=== PATIENT | female | born 1965 | race Caucasian/White ===

== ENCOUNTER 2016-07-29 13:07 | Emergency (ER) | payer BC ==
[~2016-07-29] VITALS: Ht 160 cm; Wt 50.1 kg
[~2016-07-29 13:07] MED LIST: ACYC400T PO; ALEN40TA2 PO; BUME2TAB3 PO; CEVI1CAP PO; CYAN3INJ IM; ESCI5TAB PO; LACT1CAP6 PO; LEVO75TA PO; METO25TA56 PO; MULT1PAK; NRN/300 PO; RIZA10TA18 PO; TRAM-10 PO
[2016-07-29 13:10] VITALS: TEMP 36.8; Ht 160 cm; Wt 50.1 kg
[2016-07-29] MEDS ORDERED: ALBUT/IPRATROP 3MG/0.5MG NEB 3 ML VIAL INH STA (13:36)
[2016-07-29] MEDS ORDERED: CEFU1TAB36 PO (14:06)
[2016-07-29] MEDS ORDERED: FSM70 PO (14:06)
[2016-07-29 14:12] LABS: BASO % 0.1 %; BASO ABS # 0.01 K/uL (0-0.2); COMPLETE YES; EOS % 1.4 %; HEMATOCRIT 34.5 % (37-47); IG% 0.1 %; LYMPH ABS # 1.07 K/uL (1.2-3.4); MEAN CELL VOLUME 89.1 fL (80-100); MEAN CORPUSCULAR HEMOGLOBIN 29.7 pg (25-34); MEAN CORPUSCULAR HGB CONC 33.3 g/dl (32-36); MEAN PLATELET VOLUME 10.1 fL (7.4-10.4); MONO % 12.2 %; NEUT % 72.2 %; PLATELET COUNT 303 K/uL (130-400); RED BLOOD COUNT 3.87 M/uL (4.2-5.4); WHITE BLOOD COUNT 7.64 K/uL (4.8-10.8)
[2016-07-29 14:28] LABS: BUN/CREATININE RATIO 9.4 (10-20); CALCIUM 9.2 mg/dl (8.5-10.1); CREATININE 0.7 mg/dl (0.60-1.20); POTASSIUM 3.9 mmol/L (3.5-5.1)
[2016-07-29 14:32] LABS: ALB/GLOB RATIO 0.9 (0.9-2)
[2016-07-29 14:48] VITALS: BP 117/75; PULSE 82; O2SAT 100
--- NOTE | 2016-07-29 14:55 | DIAGNOSTIC IMAGING REPORT ---
TWO VIEW CHEST CLINICAL HISTORY: Cough and fever. FINDINGS: PA and lateral chest radiographs are compared to study dated 02/08/2016. The cardiomediastinal silhouette is unremarkable. Chronic interstitial thickening is similar to previous. The lungs and pleural spaces are clear. There is no pneumothorax. The bony thorax appears intact. Cholecystectomy clips are identified in the right upper quadrant. IMPRESSION: No active disease in the chest. Electronically signed by: Long Banks M.D. 07/29/2016 2:53 PM Dictated Date/Time: 07/29/2016 2:52 PM
--- NOTE | 2016-07-29 15:29 | EMERGENCY ROOM VISIT NOTE ---
ED Visit Note First contact with patient: 13:15 CHIEF COMPLAINT: Flulike symptoms 5 days HISTORY OF PRESENT ILLNESS: Patient is a 50-year-old white female with past medical history significant for Sjogren's syndrome, SICCA syndrome, dyslipidemia , hypertension, hypothyroidism, B-12 deficiency, cryoglobulinemia (mixed type) and hypogammaglobinemia who presents to the emergency department for evaluation of flulike symptoms over the last 5 days. She is not presently being treated for her autoimmune disease. She reports developing "cold-like symptoms about 5 days ago including sore throat, nasal congestion, fatigue and body and muscle aches. She had a low-grade fever for a few days, temperature max was 100F orally. She also reports fatigue, nausea and anorexia. 3 days ago, she went to her PCPs office due to all of the sinus pressure and congestion and was placed on Ceftin for a sinus infection. 2 days ago she noted feeling slightly short of breath and had a nonproductive cough. She has not had any further fevers. She is using utla-jrm-grnqlof medications including Mucinex, Tylenol and TheraFlu for her symptoms but she is not getting any better. She has not received a flu shot. She denies any sick contacts. She denies any posterior neck pain or stiffness. She complains mostly of facial pressure from her sinuses. She denies any generalized headache. REVIEW OF SYSTEMS: Review of systems as per HPI. All other systems reviewed were negative. 10 systems reviewed. PMH: Electronic medical records are reviewed and summarized as above/below. See Problem List. SOCIAL HISTORY: Patient lives at home. Former smoker. PHYSICAL EXAM: Vital Signs: Reviewed Nurse's notes. Patient is afebrile. Vital signs are stable. MENTAL STATUS: Alert and cooperative. Nontoxic appearing. HEAD: Atraumatic, without temporal or scalp tenderness. EYES: PERRL, EOMI, no discharge or injection. EARS: Tympanic membranes intact, not inflamed, have normal contour. External canals clear. NOSE: Nares patent, turbinates edematous and boggy with clear rhinorrhea. MOUTH: Mucous membranes moist, no lesions, tongue and gums appear normal. THROAT: No pharyngeal injection, exudates, or tonsillar hypertrophy. Airway is patent. NECK: Supple, nontender, no lymphadenopathy. No nuchal rigidity. HEART: Regular rate and rhythm without murmurs, ectopy, gallops, or rubs. LUNGS: Clear to auscultation and breath sounds equal, no wheezes, rales, or rhonchi. SKIN: Normal. NEUROLOGICAL: Sensory and motor functions grossly intact. Normal gait. EMERGENCY DEPARTMENT COURSE: The patient was seen and evaluated as above. She reports roughly 5 days of upper respiratory symptoms. She was given a DuoNeb treatment in the emergency department. Influenza swab was obtained and was negative. CBC demonstrates no leukocytosis. She has a chronic, stable anemia. Electrolytes and liver functions are essentially unremarkable. Urine dip was clear and test was negative. Chest x-ray was obtained and was unremarkable. Patient's history, presentation and ED workup were reviewed with attending physician who was in agreement. I discussed with the patient that I suspect her illness is likely viral in nature. I did not suspect that she had a sinusitis as she had only been ill for a couple of days prior to her being placed on the oral antibiotics. Nonetheless as she has started the antibiotics , she should complete the entire course. She is not improving because her illness is viral and not likely to be bacterial. She does not have influenza by testing today. She was encouraged to continue supportive care. She was ordered an albuterol inhaler with a spacer, however declined this at discharge per discharge nurse. She certainly does not have findings consistent with meningitis or encephalitis exam. Differential diagnoses include viruses including influenza, strep pharyngitis, sinusitis, allergic rhinitis, otitis media, bronchitis, pneumonia, among others. TWO VIEW CHEST CLINICAL HISTORY: Cough and fever. FINDINGS: PA and lateral chest radiographs are compared to study dated 02/08/2016. The cardiomediastinal silhouette is unremarkable. Chronic interstitial thickening is similar to previous. The lungs and pleural spaces are clear. There is no pneumothorax. The bony thorax appears intact. Cholecystectomy clips are identified in the right upper quadrant. IMPRESSION: No active disease in the chest. Problem List Medical Problems: (1) Anemia Status: Chronic (2) Hypogammaglobulinemia Status: Chronic (3) Mixed cryoglobulinemia Status: Chronic (4) Sjoegren syndrome Status: Chronic Surgical Problems: (1) H/O tubal ligation Status: Resolved (2) History of open reduction and internal fixation (ORIF) procedure Status: Resolved Current/Historical Medications Scheduled Alendronate Sodium (Alendronate Sodium), 70 MG PO WK Cefuroxime Axetil (Cefuroxime Axetil), 50 MG PO BID Cevimeline Hcl (Cevimeline Hcl), 30 MG PO TID Cyanocobalamin (Vitamin B-12 Inj), 1,000 MCG IM MONTHLY Escitalopram Oxalate (Lexapro), 1 TAB PO DAILY Levothyroxine Sodium (Synthroid), 75 MCG PO DAILY Metoprolol Tartrate (Lopressor) (Lopressor), 0.5 TAB PO BID Allergies Coded Allergies: Sulfamethoxazole w/Trimethoprim (Verified Allergy, Intermediate, rash, 02/06) Vital Signs Date Time Temp Pulse Resp B/P Pulse Ox O2 Delivery O2 Flow Rate FiO2 07/29/16 14:48 82 18 117/75 100 Room Air 07/29/16 13:10 36.8 92 18 127/67 98 Room Air Laboratory Results 07/29/16 13:50 Red Blood Count 3.87, Mean Corpuscular Volume 89.1, Mean Corpuscular Hemoglobin 29.7, Mean Corpuscular Hemoglobin Concent 33.3, Mean Platelet Volume 10.1, Neutrophils (%) (Auto) 72.2, Lymphocytes (%) (Auto) 14.0, Monocytes (%) (Auto) 12.2, Eosinophils (%) (Auto) 1.4, Basophils (%) (Auto) 0.1, Neutrophils # (Auto ) 5.51, Lymphocytes # (Auto) 1.07, Monocytes # (Auto) 0.93, Eosinophils # (Auto ) 0.11, Basophils # (Auto) 0.01 07/29/16 13:50 Test 07/29/16 13:40 07/29/16 13:45 07/29/16 13:50 Urine Test NEG (NEG) Influenza Type A Antigen Neg for Influ A (NEG) Influenza Type B Antigen Neg for Influ B (NEG) White Blood Count 7.64 K/uL (4.8-10.8) Red Blood Count 3.87 M/uL (4.2-5.4) Hemoglobin 11.5 g/dL (12.0-16.0) Hematocrit 34.5 % (37-47) Mean Corpuscular Volume 89.1 fL (80-100) Mean Corpuscular Hemoglobin 29.7 pg (25-34) Mean Corpuscular Hemoglobin Concent 33.3 g/dl (32-36) Platelet Count 303 K/uL (130-400) Mean Platelet Volume 10.1 fL (7.4-10.4) Neutrophils (%) (Auto) 72.2 % Lymphocytes (%) (Auto) 14.0 % Monocytes (%) (Auto) 12.2 % Eosinophils (%) (Auto) 1.4 % Basophils (%) (Auto) 0.1 % Neutrophils # (Auto) 5.51 K/uL (1.4-6.5) Lymphocytes # (Auto) 1.07 K/uL (1.2-3.4) Monocytes # (Auto) 0.93 K/uL (0.11-0.59) Eosinophils # (Auto) 0.11 K/uL (0-0.5) Basophils # (Auto) 0.01 K/uL (0-0.2) RDW Standard Deviation 44.7 fL (36.4-46.3) RDW Coefficient of Variation 13.7 % (11.5-14.5) Immature Granulocyte % (Auto) 0.1 % Immature Granulocyte # (Auto) 0.01 K/uL (0.00-0.02) Anion Gap 9.0 mmol/L (3-11) Est Creatinine Clear Calc Drug Dose 77.7 ml/min Estimated GFR () 118.7 Estimated GFR (Non- 102.5 BUN/Creatinine Ratio 9.4 (10-20) Calcium Level 9.2 mg/dl (8.5-10.1) Total Bilirubin 0.3 mg/dl (0.2-1) Aspartate Amino Transf (AST/SGOT) 39 U/L (15-37) Alanine Aminotransferase (ALT/SGPT) 32 U/L (12-78) Alkaline Phosphatase 209 U/L (45-117) Total Protein 6.8 gm/dl (6.4-8.2) Albumin 3.3 gm/dl (3.4-5.0) Globulin 3.5 gm/dl (2.5-4.0) Albumin/Globulin Ratio 0.9 (0.9-2) Medications Administered Medications (Trade) Dose Ordered Sig/Selena Route Start Time Stop Time Status Last Admin Dose Admin Albuterol/ Ipratropium (Duoneb) 3 ml NOW STAT INH 07/29/16 13:36 07/29/16 13:38 DC 07/29/16 13:58 3 ML Departure Information Impression Primary Impression: Viral upper respiratory illness Referrals Edward Bae M.D. (PCP) Patient Instructions [facility] Additional Instructions Finish antibiotics as prescribed by your PCP. Acetaminophen(Tylenol) may be used for fever or pain. Use 1000mg every six hours as needed. Avoid using more than 3000mg in a 24 hour period. (AND/OR) Ibuprofen(Motrin, Advil) may be used for fever or pain. Use 600mg every six hours as needed. Take with food. Avoid using more than 2400mg in a 24 hour period. Do not use 2400mg per day for more than three consecutive days without physician direction. Prolonged inappropriate use can lead to stomach upset or ulcers. Afrin nasal spray: 2-3 sprays to each nostril twice daily as needed for congestion. Do not use for more than 3-4 days because it can lead to worsening rebound congestion. Use an ggqq-[id number] nasal steroid spray per package instructions (Nasacort, Nasonex, etc.). Pseudoephedrine(Sudaphed): 30-60mg every 6 hours as needed for nasal congestion. Do not take this with other stimulant products or supplements. Guaifenesin (Mucinex) : Take 1200 mg every 12 hours as needed for nasal/chest congestion, to help thin secretions. Albuterol Inhaler: Take 2 puffs four times daily for seven days, then as needed. Rest and drink plenty of fluids. Controlling your fever with Tylenol and Ibuprofen as above will make you feel better. Wash your hands after nose blowing, sneezing, or coughing. Most germs are spread through contact, therefore improper hygiene may result in your close contacts and loved ones becoming ill just like you. Continue current medications. Return to the ER for severe headache, neck stiffness, chest pain, difficulty breathing, fevers, vomiting, worsening of your condition, or as needed. Follow up with your primary physician this week for a recheck of your current condition.
[2016-07-29] MEDS ORDERED: ALBUTEROL HFA 8 GM INHALER INH ONE (15:30)
== END 2016-07-29 15:47 | disposition home or self-care (01) ==
LOC: C.EDB 13:09 → C.EDC 15:47
DX: J06.9 Acute upper respiratory infection, unspecified (principal); I10 Essential (primary) hypertension; E78.5 Hyperlipidemia, unspecified; E03.9 Hypothyroidism, unspecified; Z87.891 Personal history of nicotine dependence; Z98.51 Tubal ligation status; Z90.49 Acquired absence of other specified parts of digestive tract; Z79.899 Other long term (current) drug therapy; Z88.2 Allergy status to sulfonamides

== ENCOUNTER 2016-10-29 11:49 | Inpatient (IN) | payer BC ==
[~2016-10-29] VITALS: Ht 160 cm; Wt 48.4 kg
[~2016-10-29 11:49] MED LIST changes: -ACYC400T PO; -ALEN40TA2 PO; -BUME2TAB3 PO; +CEFU1TAB36 PO; +FSM70 PO; -LACT1CAP6 PO; -MULT1PAK; -NRN/300 PO; -RIZA10TA18 PO; -TRAM-10 PO
[2016-10-29] MEDS ORDERED: SODIUM CHLORIDE 0.9% 1000ML 2,000 ML IV STA (12:01)
[2016-10-29] MEDS ORDERED: KETOROLAC TROMETHAMINE 30 MG/ML VIAL IV STA (12:01)
[2016-10-29] MEDS ORDERED: ONDANSETRON 4MG OD TAB PO ONE (12:15)
[2016-10-29 12:24] LABS: BASO % 0.1 %; BASO ABS # 0.01 K/uL (0-0.2); COMPLETE YES; EOS % 0.6 %; HEMATOCRIT 41.5 % (37-47); IG% 0.2 %; LYMPH % 5.7 %; LYMPH ABS # 0.57 K/uL (1.2-3.4); MEAN CELL VOLUME 90.2 fL (80-100); MEAN CORPUSCULAR HEMOGLOBIN 30.2 pg (25-34); MEAN CORPUSCULAR HGB CONC 33.5 g/dl (32-36); MEAN PLATELET VOLUME 10.3 fL (7.4-10.4); NEUT % 85.4 %; PLATELET COUNT 320 K/uL (130-400)
--- NOTE | 2016-10-29 12:29 | EMERGENCY ROOM VISIT NOTE ---
History Report prepared by Sukhwinder: Tha Pemberton Under the Supervision of: Dr. Long Parks M.D. First contact with patient: 12:01 Chief Complaint: VOMITING Stated Complaint: VOMITING,DIARRHEA,DIZZY,SOB Nursing Triage Summary: Pt c/o being dehydrated. N/V/D since 399. Headache, ears feel clogged , dizzy. History of Present Illness The patient is a 51 year old female who presents to the Emergency Room with complaints of vomiting that began 32 hours ago. She began to vomit at this time. Shortly after this, she began to have diarrhea. She has been having these two either intermittently, or together, very frequently since then. She notes that her granddaughter had a mild version of this, but it was not this bad. She has not eaten for two days, because she cannot keep anything down without vomiting. She is only experiencing mild cramp-like pain in her abdomen. She denies any hematemesis or hematochezia. She has a history of hypertension and heart disease. She is taking Metoprolol regularly. Source of History: patient Onset: 32 hours ago Position: other (GI) Symptom Intensity: moderate Quality: other (Vomiting) Timing: intermittent, other (persistent) Modifying Factors (Worsening): eating, drinking Associated Symptoms: + abdominal pain, + chills, + diarrhea, + nausea, No hematochezia Note: She denies any hematemesis. Review of Systems See HPI for pertinent positives & negatives. A total of 10 systems reviewed and were otherwise negative. Past Medical & Surgical Medical Problems: (1) Acute exacerbation of CHF (congestive heart failure) (2) Anemia (3) Anemia (4) Hypogammaglobulinemia (5) Mixed cryoglobulinemia (6) Sjoegren syndrome Surgical Problems: (1) H/O tubal ligation (2) History of open reduction and internal fixation (ORIF) procedure Family History Cancer Heart disease Hypertension Kidney stones Social History Smoking Status: Former Smoker Alcohol Use: occasionally Drug Use: none Marital Status: Housing Status: lives with significant other Occupation Status: employed Current/Historical Medications Scheduled Alendronate Sodium (Alendronate Sodium), 70 MG PO WK Cevimeline Hcl (Cevimeline Hcl), 30 MG PO TID Cyanocobalamin (Cyanocobalamin), 1 MCG INJ Mo Eluxadoline (Viberzi), 75 MG PO HS Escitalopram Oxalate (Lexapro), 1 TAB PO DAILY Levothyroxine Sodium (Synthroid), 75 MCG PO DAILY Metoprolol Tartrate (Lopressor) (Lopressor), 0.5 TAB PO BID Allergies Coded Allergies: Sulfamethoxazole w/Trimethoprim (Verified Allergy, Intermediate, rash, ) Physical Exam Vital Signs Date Time Temp Pulse Resp B/P Pulse Ox O2 Delivery O2 Flow Rate FiO2 10/29/16 13:35 80 16 122/79 100 Room Air 10/29/16 12:27 102 10/29/16 11:51 36.4 138 16 120/77 96 Room Air Physical Exam GENERAL: Patient is in no acute distress. HEENT: No acute trauma, normocephalic atraumatic, mucous membranes dry, no nasal congestion, no scleral icterus. NECK: No stridor, no adenopathy, no meningismus, trachea is midline. LUNGS: Clear to auscultation bilaterally, no wheeze, no rhonchi, breath sounds equal. HEART: Tachycardic, with a regular rhythm. No murmurs. ABDOMEN: Soft, nontender, bowel sounds positive, no hernias, no peritonitis. EXTREMITIES: No cyanosis or edema, full range of motion of all the joints without pain or difficulty, no signs for acute trauma. NEUROLOGIC: Oriented x 3, no acute motor or sensory deficits, no focal weakness. SKIN: No rash, no jaundice, no diaphoresis. Medical Decision & Procedures Laboratory Results 10/29/16 12:05 Red Blood Count 4.60, Mean Corpuscular Volume 90.2, Mean Corpuscular Hemoglobin 30.2, Mean Corpuscular Hemoglobin Concent 33.5, Mean Platelet Volume 10.3, Neutrophils (%) (Auto) 85.4, Lymphocytes (%) (Auto) 5.7, Monocytes (%) (Auto) 8.0, Eosinophils (%) (Auto) 0.6, Basophils (%) (Auto) 0.1, Neutrophils # (Auto) 8.54, Lymphocytes # (Auto) 0.57, Monocytes # (Auto) 0.80, Eosinophils # (Auto) 0.06, Basophils # (Auto) 0.01 10/29/16 12:05 Test 10/29/16 12:05 White Blood Count 10.00 K/uL (4.8-10.8) Red Blood Count 4.60 M/uL (4.2-5.4) Hemoglobin 13.9 g/dL (12.0-16.0) Hematocrit 41.5 % (37-47) Mean Corpuscular Volume 90.2 fL (80-100) Mean Corpuscular Hemoglobin 30.2 pg (25-34) Mean Corpuscular Hemoglobin Concent 33.5 g/dl (32-36) Platelet Count 320 K/uL (130-400) Mean Platelet Volume 10.3 fL (7.4-10.4) Neutrophils (%) (Auto) 85.4 % Lymphocytes (%) (Auto) 5.7 % Monocytes (%) (Auto) 8.0 % Eosinophils (%) (Auto) 0.6 % Basophils (%) (Auto) 0.1 % Neutrophils # (Auto) 8.54 K/uL (1.4-6.5) Lymphocytes # (Auto) 0.57 K/uL (1.2-3.4) Monocytes # (Auto) 0.80 K/uL (0.11-0.59) Eosinophils # (Auto) 0.06 K/uL (0-0.5) Basophils # (Auto) 0.01 K/uL (0-0.2) RDW Standard Deviation 46.4 fL (36.4-46.3) RDW Coefficient of Variation 14.2 % (11.5-14.5) Immature Granulocyte % (Auto) 0.2 % Immature Granulocyte # (Auto) 0.02 K/uL (0.00-0.02) Anion Gap 13.0 mmol/L (3-11) Est Creatinine Clear Calc Drug Dose 28.9 ml/min Estimated GFR () 37.6 Estimated GFR (Non- 32.5 BUN/Creatinine Ratio 12.1 (10-20) Calcium Level 10.2 mg/dl (8.5-10.1) Magnesium Level 2.5 mg/dl (1.8-2.4) Total Bilirubin 0.7 mg/dl (0.2-1) Aspartate Amino Transf (AST/SGOT) 122 U/L (15-37) Alanine Aminotransferase (ALT/SGPT) 217 U/L (12-78) Alkaline Phosphatase 542 U/L (45-117) Total Protein 8.7 gm/dl (6.4-8.2) Albumin 4.7 gm/dl (3.4-5.0) Globulin 4.0 gm/dl (2.5-4.0) Albumin/Globulin Ratio 1.2 (0.9-2) Lipase 259 U/L (73-393) Laboratory results reviewed by me. Medications Administered Medications (Trade) Dose Ordered Sig/Selena Route Start Time Stop Time Status Last Admin Dose Admin Sodium Chloride (Nss 1000ml) 2,000 ml @ 999 mls/hr Q2H1M STAT IV 10/29/16 12:01 10/29/16 14:01 DC 10/29/16 12:12 999 MLS/HR Ondansetron HCl (Zofran Odt) 4 mg ONE ONCE PO 10/29/16 12:15 10/29/16 12:16 DC 10/29/16 12:11 4 MG Lorazepam (Ativan Inj) 0.5 mg NOW STAT IV 10/29/16 12:54 10/29/16 12:55 DC 10/29/16 13:18 0.5 MG ED Course 1201: The patient was evaluated in room B3. A complete history and physical exam was performed. Ordered Sodium Chloride 2000 ml @ 999 mls/hr IV. 1215: Ordered Zofran Odt 4 mg PO 1254: Ordered Ativan Inj 0.5 mg IV 1406: Upon reexamination the patient is resting. I discussed results and treatment plan with the patient. She verbalizes agreement and understanding. The patient will be evaluated by Dr. Ignacio Monteiro [facility], for further management. Medical Decision Differential diagnosis includes but is not limited to dehydration, acute renal failure, viral illness, electrolyte abnormality, anemia, and foodborne illness. There is no leukocytosis or concerning anemia. Renal panel testing shows acute renal failure. A hepatitis was also noted. No pancreatitis. Urinalysis shows contamination, no obvious infection. On exam, the patient did seem quite dehydrated. Patient received IV saline, IV Zofran and IV Ativan. She is doing well. No further vomiting but she has continued to have diarrhea. With the acute renal failure, with the persistent symptoms, admission/ observation was warranted. I spoke to the patient and case management. The on- call hospitalist was consulted. I suspect this illness is viral. Her granddaughter had something similar recently. Consults Time Called: 1400 Consulting Physician: Dr. Ignacio PORTILLO Returned Call: [phone] They will be evaluating the patient for further management. Impression Primary Impression: Acute renal failure Additional Impressions: Dehydration Vomiting and diarrhea Scribe Attestation The scribe's documentation has been prepared under my direction and personally reviewed by me in its entirety. I confirm that the note above accurately reflects all work, treatment, procedures, and medical decision making performed by me. Departure Information Dispostion Being Evaluated By Hospitalist Referrals Edward Bae M.D. (PCP) Patient Instructions [facility] Problem Qualifiers
[2016-10-29] MEDS ORDERED: CYNI1000 INJ (12:35)
[2016-10-29 12:38] LABS: POTASSIUM 3.6 mmol/L (3.5-5.1)
[2016-10-29 12:42] LABS: BUN/CREATININE RATIO 12.1 (10-20); CALCIUM 10.2 mg/dl (8.5-10.1); CREATININE 1.8 mg/dl (0.60-1.20)
[2016-10-29] MEDS ORDERED: ELUX1TAB PO (12:43)
[2016-10-29 12:45] LABS: ALB/GLOB RATIO 1.2 (0.9-2); MAGNESIUM 2.5 mg/dl (1.8-2.4)
[2016-10-29] MEDS ORDERED: LORAZEPAM 2 MG/ML 1 ML VIAL IV STA (12:54)
[2016-10-29] MEDS ORDERED: ACETAMINOPHEN 325 MG TAB PO PRN (14:30)
[2016-10-29] MEDS ORDERED: ONDANSETRON INJ 2 MG/ML 2 ML VIAL IV PRN (14:30)
[2016-10-29 14:52] VITALS: Ht 160 cm; Wt 48.4 kg
[2016-10-29 15:34] VITALS: BP 107/69; PULSE 89; TEMP 36.4; O2SAT 98
[2016-10-29] MEDS: NSS + 20MEQ KCL 1000ML 1,000 ML IV SCH (15:48)
--- NOTE | 2016-10-29 17:17 | History and Physical ---
History & Physical Date & Time of Service: Oct 29, 2016 at 15:12 Chief Complaint: Vomiting,Diarrhea,Dizzy,Sob Primary Care Physician: Edward Bae M.D. History of Present Illness Source: patient, hospital records 51 yo female with h/o Sjogren's syndrome, mixed cryoglobulinemia, hypogammaglobulinemia and IBS, presents to the ED with vomiting and diarrhea that started exactly at 0400 on 10/28. She reports that her grand daughter had vomiting and diarrhea for approximately 12 hours a few days prior. She was feeling well until suddenly she woke up with the urge to vomit. She vomited several times, bilious and gastric contents, no blood. She had no abdominal pain, just some mild cramping. A few hours later the diarrhea started and has continued. Was liquid brown and now it is yellow. No blood that she has noticed. She has tried some ice chips and water but throws up almost immediately, really no PO intake since the symptoms started. She was feeling weak and shaky on her feet and also c/o some bilateral hand and leg numbness so she came to the ED for evaluation. Her vitals were stable, afebrile. Her Cr was elevated at 1.8 from a previous baseline of 0.5 to 0.7 and her BUN was slightly high at 22. Her LFT were also elevated with alkaline phosphatase 543, her ALT in the 200's and AST 100's. Bilirubin was normal. She was given IV fluids and admission requested due to MAYDA. Typically she feels well. She is compliant with her Cevimeline for Sjogren's, currently her mouth is more dry than normal. And she takes Viberzi for IBS, diarrhea predominant and this limits her to 1-2 BM in the morning. Past Medical/Surgical History s/p cholecystectomy Medical Problems: (1) Anemia Status: Chronic (2) Hypogammaglobulinemia Status: Chronic (3) Mixed cryoglobulinemia Status: Chronic (4) Sjoegren syndrome Status: Chronic Surgical Problems: (1) H/O tubal ligation Status: Resolved (2) History of open reduction and internal fixation (ORIF) procedure Status: Resolved Family History Cancer Heart disease Hypertension Kidney stones Social History Smoking Status: Former Smoker Drug Use: none Marital Status: Housing status: lives with family Occupational Status: employed Immunizations History of Influenza Vaccine: No History of Tetanus Vaccine?: Unknown History of Pneumococcal: No History of Hepatitis B Vaccine: No Allergies Coded Allergies: Sulfamethoxazole w/Trimethoprim (Verified Allergy, Intermediate, rash, ) Home Medications Scheduled Alendronate Sodium (Alendronate Sodium), 70 MG PO WK Cevimeline Hcl (Cevimeline Hcl), 30 MG PO TID Cyanocobalamin (Cyanocobalamin), 1 MCG INJ Mo Eluxadoline (Viberzi), 75 MG PO HS Escitalopram Oxalate (Lexapro), 1 TAB PO DAILY Levothyroxine Sodium (Synthroid), 75 MCG PO DAILY Metoprolol Tartrate (Lopressor) (Lopressor), 0.5 TAB PO BID Physical Exam Vital Signs Date Time Temp Pulse Resp B/P Pulse Ox O2 Delivery O2 Flow Rate FiO2 10/29/16 14:55 91 16 114/84 100 Room Air 10/29/16 14:52 Room Air 10/29/16 13:35 80 16 122/79 100 Room Air 10/29/16 12:27 102 10/29/16 11:51 36.4 138 16 120/77 96 Room Air General Appearance: no apparent distress, + thin Head: normocephalic, atraumatic Eyes: normal inspection, EOMI, sclerae normal ENT: normal ENT inspection, hearing grossly normal, pharynx normal Neck: supple, no adenopathy, no JVD, trachea midline Respiratory/Chest: chest non-tender, lungs clear, normal breath sounds, no respiratory distress, no accessory muscle use Cardiovascular: regular rate, rhythm, no edema, no gallop, no JVD, no murmur, normal peripheral pulses Abdomen/GI: normal bowel sounds, non tender, soft, no organomegaly Back: normal inspection, no CVA tenderness, no muscle spasm, normal range of motion Extremities/Musculoskelatal: normal inspection, no calf tenderness, normal capillary refill, no pedal edema, normal range of motion Neurologic/Psych: division engineer II-XII nml as tested, no motor/sensory deficits, alert, normal mood/affect, normal reflexes, oriented x 3 Skin: normal color, warm/dry, no rash Diagnostics Laboratory Results Results Past 24 Hours Test 10/29/16 12:05 Range/Units White Blood Count 10.00 4.8-10.8 K/uL Red Blood Count 4.60 4.2-5.4 M/uL Hemoglobin 13.9 12.0-16.0 g/dL Hematocrit 41.5 37-47 % Mean Corpuscular Volume 90.2 80-100 fL Mean Corpuscular Hemoglobin 30.2 25-34 pg Mean Corpuscular Hemoglobin Concent 33.5 32-36 g/dl Platelet Count 320 130-400 K/uL Mean Platelet Volume 10.3 7.4-10.4 fL Neutrophils (%) (Auto) 85.4 % Lymphocytes (%) (Auto) 5.7 % Monocytes (%) (Auto) 8.0 % Eosinophils (%) (Auto) 0.6 % Basophils (%) (Auto) 0.1 % Neutrophils # (Auto) 8.54 1.4-6.5 K/uL Lymphocytes # (Auto) 0.57 1.2-3.4 K/uL Monocytes # (Auto) 0.80 0.11-0.59 K/uL Eosinophils # (Auto) 0.06 0-0.5 K/uL Basophils # (Auto) 0.01 0-0.2 K/uL RDW Standard Deviation 46.4 36.4-46.3 fL RDW Coefficient of Variation 14.2 11.5-14.5 % Immature Granulocyte % (Auto) 0.2 % Immature Granulocyte # (Auto) 0.02 0.00-0.02 K/uL Sodium Level 144 136-145 mmol/L Potassium Level 3.6 3.5-5.1 mmol/L Chloride Level 109 98-107 mmol/L Carbon Dioxide Level 22 21-32 mmol/L Anion Gap 13.0 3-11 mmol/L Blood Urea Nitrogen 22 7-18 mg/dl Creatinine 1.80 0.60-1.20 mg/dl Est Creatinine Clear Calc Drug Dose 28.9 ml/min Estimated GFR () 37.6 Estimated GFR (Non- 32.5 BUN/Creatinine Ratio 12.1 10-20 Random Glucose 133 70-99 mg/dl Calcium Level 10.2 8.5-10.1 mg/dl Magnesium Level 2.5 1.8-2.4 mg/dl Total Bilirubin 0.7 0.2-1 mg/dl Aspartate Amino Transf (AST/SGOT) 122 15-37 U/L Alanine Aminotransferase (ALT/SGPT) 217 12-78 U/L Alkaline Phosphatase 542 45-117 U/L Total Protein 8.7 6.4-8.2 gm/dl Albumin 4.7 3.4-5.0 gm/dl Globulin 4.0 2.5-4.0 gm/dl Albumin/Globulin Ratio 1.2 0.9-2 Impression Assessment and Plan 51 yo female with h/o mixed cryoglobulinemia, hypogammaglobulinemia and Sjogren' s syndrome, presents with acute vomiting and diarrhea causing dehydration, renal failure - Acute renal failure: Cr elevated at 1.8, most likely prerenal given increased GI output and poor oral intake received 2L NSS in the ED, will treat with NSS + 20mEq K at 100cc/hr, follow UO, check BMP in the AM - Elevated LFT: possibly releated to viral illness, will check RUQ US to look for any abnormalities, h/o cholecystectomy repeat LFT in the AM, she has been tested for hepatitis in the past due to cryoglobulinemia, negative serology - Vomiting and diarrhea: most likely viral gastroenteritis, will check stool cultures, supportive care, Zofran PRN - HTN: continue metoprolol - Sjogren's syndrome: continue Cevimeline - DVT prophylaxis: heparin SC Level of Care Med/Surg Advanced Directives Existing Living Will: No Existing Power of Head Mixer: No Resuscitation Status FULL RESUSCITATION VTE Prophylaxis VTE Risk Assessment Done? Y/N: Yes Risk Level: Moderate Given or contraindicated: Unfractionated heparin SQ Additional Copies To Edward Bae M.D.
[2016-10-29 17:53] LABS: URINE APPEARANCE CLOUDY (CLEAR); URINE COLOR DK YELLOW; URINE EPITHELIAL CELL AUTO >30 /lpf (0-5); URINE NITRITE NEG (NEG); UROBILINOGEN NEG (NEG); ZZUR CULT IF INDIC CLEAN CATCH YES
[2016-10-29 17:56] LABS: MANUAL MICROSCOPIC REQUIRED? NO; REVIEW REQ? YES
[2016-10-29 17:57] LABS: URINE BILIRUBIN NEG (NEG)
[2016-10-29 18:16] LABS: URINE MUCUS PRESENT (NONE PRSENT)
--- NOTE | 2016-10-29 19:16 | DIAGNOSTIC IMAGING REPORT ---
ABDOMINAL ULTRASOUND, RIGHT UPPER QUADRANT HISTORY: ELEVATED LFT. COMPARISON: Abdominal ultrasound 12/23/2013. FINDINGS: Pancreas: The pancreas demonstrates a normal echotexture. Liver: Unremarkable. Gallbladder: The gallbladder is surgically absent. CBD: 4 mm. Right kidney: No hydronephrosis. A 1.3 cm upper pole cyst. There is also a 7 mm stone within the upper pole. Mild to moderate cortical thinning. IMPRESSION: 1. Cholecystectomy. 2. Right-sided nephrolithiasis. No hydronephrosis. Electronically signed by: Nish Daigle M.D. 10/29/2016 7:14 PM Dictated Date/Time: 10/29/2016 7:13 PM
[2016-10-29] MEDS: METOPROLOL TARTRATE 25 MG TAB PO SCH (19:57)
[2016-10-29 19:58] VITALS: BP 109/74; PULSE 77
[2016-10-29 20:00] VITALS: O2SAT 98
[2016-10-30] VITALS: O2SAT 98
[2016-10-30 00:08] VITALS: BP 100/64; PULSE 56; TEMP 36.8; O2SAT 99
[2016-10-30] MEDS: NSS + 20MEQ KCL 1000ML 1,000 ML IV SCH ×2 (01:25→10:41)
[2016-10-30] MEDS: LEVOTHYROXINE 75 MCG TAB PO SCH (05:50)
[2016-10-30 06:40] LABS: HEMATOCRIT 34.4 % (37-47); MEAN CELL VOLUME 93.5 fL (80-100); MEAN CORPUSCULAR HEMOGLOBIN 29.3 pg (25-34); MEAN CORPUSCULAR HGB CONC 31.4 g/dl (32-36); PLATELET COUNT 247 K/uL (130-400); RED BLOOD COUNT 3.68 M/uL (4.2-5.4); WHITE BLOOD COUNT 5.25 K/uL (4.8-10.8)
[2016-10-30 07:00] LABS: BASO % 0.2 %; BASO ABS # 0.01 K/uL (0-0.2); COMPLETE YES; EOS % 5.3 %; IG% 0.2 %; LYMPH % 20.8 %; LYMPH ABS # 1.09 K/uL (1.2-3.4); MONO % 15.2 %; NEUT % 58.3 %
[2016-10-30 07:24] LABS: CREATININE 0.63 mg/dl (0.60-1.20); MAGNESIUM 2.4 mg/dl (1.8-2.4); POTASSIUM 3.8 mmol/L (3.5-5.1)
[2016-10-30 07:34] VITALS: BP 105/65; PULSE 57; TEMP 36.8; O2SAT 100
[2016-10-30 08:00] VITALS: O2SAT 100
[2016-10-30] MEDS: ESCITALOPRAM OXALATE 10 MG TAB PO SCH (10:08)
[2016-10-30] MEDS: METOPROLOL TARTRATE 25 MG TAB PO SCH ×2 (10:08→20:36)
[2016-10-30 10:10] VITALS: BP 100/69; PULSE 65
--- NOTE | 2016-10-30 13:11 | Progress Note ---
Subjective Date of Service: Oct 30, 2016. Subjective Pt evaluation today including: conversation w/ patient, physical exam, chart review, lab review, review of studies, review of inpatient medication list patient reports she's still having significant diarrhea, loose, watery stools today x8. +sick contact No recent antibiotics. No fevers, now tolerating regular diet without vomiting. She is on plaquenil 200mg BID at home along with cimeveline for Sjogren's and viberza for IBS-diarrhea. Problem List Medical Problems: (1) Acute renal failure Status: Acute (2) CHF (congestive heart failure) Status: Acute (3) Dehydration Status: Acute (4) Edema Status: Acute (5) Myositis Status: Acute (6) Pulmonary edema Status: Acute (7) UTI (urinary tract infection) Status: Acute (8) Viral upper respiratory illness Status: Acute (9) Vomiting and diarrhea Status: Acute Review of Systems All Other Systems: Reviewed and Negative Medications Acetaminophen (Tylenol Tab) 650 mg Q4H PRN PO; Start 10/29/16 at 14:30; Stop 11/28/16 at 14:29 Escitalopram Oxalate (Lexapro Tab) 5 mg DAILY PO Last administered on 10/30/16 10:08; Admin Dose 5 MG; Start 10/30/16 at 09:00; Stop 11/29/16 at 08:59 Levothyroxine Sodium (Synthroid Tab) 75 mcg DAILYBB PO Last administered on 10/30 05:50; Admin Dose 75 MCG; Start 10/30/16 at 06:30; Stop 11/29/16 at 06:59 Metoprolol Tartrate (Lopressor Tab) 12.5 mg BID PO Last administered on 10:08; Admin Dose 12.5 MG; Start 10/29/16 at 21:00; Stop 11/28/16 at 20:59 Ondansetron HCl (Zofran Inj) 4 mg Q6H PRN IV Last administered on 10/30/16 10: 07; Admin Dose 4 MG; Start 10/29/16 at 14:30; Stop 11/28/16 at 14:29 Objective Vital Signs Date Time Temp Pulse Resp B/P Pulse Ox O2 Delivery O2 Flow Rate FiO2 10/30/16 10:10 65 100/69 10/30/16 07:34 36.8 57 16 105/65 100 Room Air 10/30/16 00:08 36.8 56 16 100/64 99 Room Air 10/30/16 00:00 98 Room Air 10/29/16 20:00 98 Room Air 10/29/16 19:58 77 109/74 10/29/16 16:00 Room Air 10/29/16 15:34 36.4 89 16 107/69 98 10/29/16 14:55 91 16 114/84 100 Room Air 10/29/16 14:52 Room Air 10/29/16 13:35 80 16 122/79 100 Room Air Physical Exam Comments: nad, aox3 anicteric s1 s2 rrr, no murmurs appreciated ctab no w/r/r abd soft nt nd +BS no LE edema Laboratory Results Last 24 Hours Test 10/29/16 17:24 10/30/16 06:09 Urine Color DK YELLOW Urine Appearance CLOUDY Urine pH 6.0 Urine Specific [place] 1.020 Urine Protein 1+ Urine Glucose (UA) NEG Urine Ketones 1+ Urine Occult Blood NEG Urine Nitrite NEG Urine Bilirubin NEG Urine Urobilinogen NEG Urine Leukocyte Esterase SMALL Urine WBC (Auto) 10-30 /hpf Urine RBC (Auto) 0-4 /hpf Urine Hyaline Casts (Auto) /lpf Urine Epithelial Cells (Auto) >30 /lpf Urine Bacteria (Auto) 1+ Urine Renal Epithelial Cells /lpf Urine Pathogenic Casts /lpf Urine Mucus PRESENT White Blood Count 5.25 K/uL Red Blood Count 3.68 M/uL Hemoglobin 10.8 g/dL Hematocrit 34.4 % Mean Corpuscular Volume 93.5 fL Mean Corpuscular Hemoglobin 29.3 pg Mean Corpuscular Hemoglobin Concent 31.4 g/dl Platelet Count 247 K/uL Mean Platelet Volume 10.0 fL Neutrophils (%) (Auto) 58.3 % Lymphocytes (%) (Auto) 20.8 % Monocytes (%) (Auto) 15.2 % Eosinophils (%) (Auto) 5.3 % Basophils (%) (Auto) 0.2 % Neutrophils # (Auto) 3.06 K/uL Lymphocytes # (Auto) 1.09 K/uL Monocytes # (Auto) 0.80 K/uL Eosinophils # (Auto) 0.28 K/uL Basophils # (Auto) 0.01 K/uL RDW Standard Deviation 51.3 fL RDW Coefficient of Variation 15.0 % Immature Granulocyte % (Auto) 0.2 % Immature Granulocyte # (Auto) 0.01 K/uL Sodium Level 147 mmol/L Potassium Level 3.8 mmol/L Chloride Level 119 mmol/L Carbon Dioxide Level 21 mmol/L Anion Gap 7.0 mmol/L Blood Urea Nitrogen 16 mg/dl Creatinine 0.63 mg/dl Est Creatinine Clear Calc Drug Dose 82.5 ml/min Estimated GFR () 122.1 Estimated GFR (Non- 105.3 BUN/Creatinine Ratio 25.0 Random Glucose 77 mg/dl Calcium Level 8.0 mg/dl Magnesium Level 2.4 mg/dl Total Bilirubin 0.3 mg/dl Direct Bilirubin 0.1 mg/dl Aspartate Amino Transf (AST/SGOT) 65 U/L Alanine Aminotransferase (ALT/SGPT) 126 U/L Alkaline Phosphatase 327 U/L Total Protein 6.3 gm/dl Albumin 3.3 gm/dl ABDOMINAL ULTRASOUND, RIGHT UPPER QUADRANT HISTORY: ELEVATED LFT. COMPARISON: Abdominal ultrasound 12/23/2013. FINDINGS: Pancreas: The pancreas demonstrates a normal echotexture. Liver: Unremarkable. Gallbladder: The gallbladder is surgically absent. CBD: 4 mm. Right kidney: No hydronephrosis. A 1.3 cm upper pole cyst. There is also a 7 mm stone within the upper pole. Mild to moderate cortical thinning. IMPRESSION: 1. Cholecystectomy. 2. Right-sided nephrolithiasis. No hydronephrosis. Assessment and Plan 1. N/V/diarrhea - likely viral etiology - lipase wnl - LFTs elevated but without pathology seen in Abd US - check hepatitis panel - cont volume repletion with significant diarrhea 2. MAYDA - h/o mixed cryo s/p rituxan, on plaquenil - resolved with hydration - will decrease rate but maintain on IVF - check AM BMP 3. Sjogren's, mixed cryo - holding plaquenil and cimeviline for now 4. IBS - hold off viberza for now 5. Electrolyte abnormalities - switch IVF to d5 1/2 NSS + 20 meq KCl 6. dvt ppx hsq
[2016-10-30] MEDS: D5W AND 1/2NSS + 20MEQ KCL 1,000 ML IV SCH ×2 (13:51→22:07)
[2016-10-30 14:26] LABS: PROTHROMBIN TIME (PATIENT) 10.3 SECONDS (9.0-12.0)
[2016-10-30 15:09] LABS: URINE APPEARANCE CLEAR (CLEAR); URINE BILIRUBIN NEG (NEG); URINE COLOR YELLOW; URINE EPITHELIAL CELL AUTO >30 /lpf (0-5); URINE NITRITE NEG (NEG); URINE PH 6.5 (4.5-7.5); URINE SPECIFIC GRAVITY 1.016 (1.000-1.030); UROBILINOGEN NEG (NEG)
[2016-10-30 15:19] VITALS: BP 107/68; PULSE 68; TEMP 36.6; O2SAT 99
[2016-10-30 15:21] LABS: MANUAL MICROSCOPIC REQUIRED? NO; REVIEW REQ? NO
[2016-10-30 15:35] LABS: URINE PROTIEN/CREAT RATIO 0.4 (0-0.2)
[2016-10-30] MEDS: HEPARIN SOD 5000 UNIT/0.5 ML CARP SQ SCH (20:35)
[2016-10-31 00:08] VITALS: BP 96/61; PULSE 62; TEMP 36.6; O2SAT 100
[2016-10-31] MEDS: LEVOTHYROXINE 75 MCG TAB PO SCH (06:30)
[2016-10-31 06:38] LABS: CALCIUM 8.5 mg/dl (8.5-10.1); CREATININE 0.49 mg/dl (0.60-1.20); MAGNESIUM 2.1 mg/dl (1.8-2.4); PHOSPHORUS 1.9 mg/dl (2.5-4.9); POTASSIUM 4.3 mmol/L (3.5-5.1)
[2016-10-31 07:42] VITALS: BP 104/66; PULSE 56; TEMP 36.6; O2SAT 100
[2016-10-31 07:59] LABS: ALKALINE PHOSPHATASE 250 U/L (45-117); ALT/SGPT 87 U/L (12-78); AST/SGOT 39 U/L (15-37)
[2016-10-31 08:30] VITALS: BP 106/74; PULSE 74
[2016-10-31] MEDS: METOPROLOL TARTRATE 25 MG TAB PO SCH (08:34)
[2016-10-31] MEDS: ESCITALOPRAM OXALATE 10 MG TAB PO SCH (08:34)
[2016-10-31] MEDS: HEPARIN SOD 5000 UNIT/0.5 ML CARP SQ SCH (08:34)
[2016-10-31] MEDS ORDERED: POT PHOSPHATE MONOBASIC W/ SOD TAB PO SCH (09:00)
[2016-10-31] MEDS ORDERED: HYDROXYCHLOROQUINE SULFATE 200 MG TAB PO SCH (09:00)
[2016-10-31] MEDS ORDERED: HYDR200T5 PO (11:35)
--- NOTE | 2016-10-31 11:37 | Discharge Instructions ---
Discharge Instructions Date of Service Oct 31, 2016. Admission Reason for Admission: Acute Renal Failure,Vomiting & Diarrhea Discharge Discharge Diagnosis / Problem: viral gastroenteritis Discharge Goals Goal(s): Decrease discomfort Activity Recommendations Activity Limitations: resume your previous activity . Current Hospital Diet Patient's current hospital diet: Regular Diet Discharge Diet Recommended Diet: Low Fiber Diet Pending Studies Studies pending at discharge: yes List of pending studies: Hepatitis A serology Medical Emergencies . Who to Call and When: Medical Emergencies: If at any time you feel your situation is an emergency, please call 911 immediately. . Non-Emergent Contact Non-Emergency issues call your: Primary Care Provider . . "Provider Documentation" section prepared by Guillermina Roman. . VTE Core Measure Inpt VTE Proph given/why not?: Unfractionated heparin SQ
--- NOTE | 2016-10-31 11:38 | Discharge Summary ---
Discharge Summary Date of Service Oct 31, 2016. Discharge Summary Admission Date: Oct 29, 2016 at 14:26 Discharge Date: Oct 31, 2016 Discharge Disposition: Home Principal Diagnosis: viral gastroenteritis Immunizations: Have You Had Influenza Vaccine: No History of Tetanus Vaccine?: Unknown History of Pneumococcal: No History of Hepatitis B Vaccine: No Medication Reconciliation Continued Medications: Alendronate Sodium (Alendronate Sodium) 70 Mg Tab 70 MG PO WK SUNDAYS Cevimeline Hcl (Cevimeline Hcl) 30 Mg Cap 30 MG PO TID Cyanocobalamin (Cyanocobalamin) 1,000 Mcg/Ml Inj 1 MCG INJ Mo Eluxadoline (Viberzi) 75 Mg Tab 75 MG PO HS Escitalopram Oxalate (Lexapro) 5 Mg Tab 1 TAB PO DAILY for 30 Days, #30 TAB 2 Refills Hydroxychloroquine Sulfate (Plaquenil) 200 Mg Tab 200 MG PO BID for 30 Days, #60 TAB Levothyroxine Sodium (Synthroid) 75 Mcg Tab 75 MCG PO DAILY, TAB Metoprolol Tartrate (Lopressor) (Lopressor) 25 Mg Tab 0.5 TAB PO BID for 30 Days, #30 TAB 5 Refills Hospital Course 51 yo female with h/o Sjogren's syndrome, mixed cryoglobulinemia, hypogammaglobulinemia and IBS, presents to the ED with vomiting and diarrhea that started exactly at 0400 on 10/28. She reports that her grand daughter had vomiting and diarrhea for approximately 12 hours a few days prior. She was feeling well until suddenly she woke up with the urge to vomit. She vomited several times, bilious and gastric contents, no blood. She had no abdominal pain, just some mild cramping. A few hours later the diarrhea started and has continued. Was liquid brown and now it is yellow. No blood that she has noticed. She has tried some ice chips and water but throws up almost immediately, really no PO intake since the symptoms started. She was feeling weak and shaky on her feet and also c/o some bilateral hand and leg numbness so she came to the ED for evaluation. Her vitals were stable, afebrile. Her Cr was elevated at 1.8 from a previous baseline of 0.5 to 0.7 and her BUN was slightly high at 22. Her LFT were also elevated with alkaline phosphatase 543, her ALT in the 200's and AST 100's. Bilirubin was normal. She was given IV fluids and admission requested due to MAYDA. Typically she feels well. She is compliant with her Cevimeline for Sjogren's, currently her mouth is more dry than normal. And she takes Viberzi for IBS, diarrhea predominant and this limits her to 1-2 BM in the morning. Patient received IVF for hydration and tolerated it well. Diarrhea gradually improved and she was able to tolerate a regular diet without n/v/abd pain. On day of discharge, she felt well. No further n/v/abd pain. No chest pain, no urinary symptoms. Vital Signs Date Time Temp Pulse Resp B/P Pulse Ox O2 Delivery O2 Flow Rate FiO2 10/31/16 11:43 36.6 74 18 100 Room Air 10/31/16 08:30 106/74 nad, aox3 anicteric s1 s2 rrr, no murmurs appreciated ctab now/r/r abd soft nt/nd +BS no LE edema 1. N/V/diarrhea - likely viral etiology - lipase wnl, hepatitis B Ag and C neg, hep A still pending upon discharge - LFTs elevated but without pathology seen in Abd US, LFTs trending down on discharge 2. MAYDA - h/o mixed cryo s/p rituxan, on plaquenil - resolved with hydration, negative proteinuria 3. Sjogren's, mixed cryo - resume plaquenil and cimeviline for now 4. IBS - hold off viberza for now 5. Electrolyte abnormalities - given 2 packets of neutrophos Total Time Spent: Greater than 30 minutes This includes examination of the patient, discharge planning, medication reconciliation, and communication with other providers. Discharge Instructions Please refer to the electronic Patient Visit Report (Discharge Instructions) for additional information. Additional Copies To Edward Bae M.D.
[2016-10-31 11:43] VITALS: BP 106/74; PULSE 74; TEMP 36.6; O2SAT 100
[2017-04-20] MEDS ORDERED: ULT50X OR (14:40)
[2017-04-20] MEDS ORDERED: PRED10TA PO (14:47)
[2017-04-29] MEDS ORDERED: BMX1 PO (10:09)
[2017-04-29] MEDS ORDERED: ATRINS NEB (10:09)
[2017-04-29] MEDS ORDERED: SALI0.6510 (10:09)
[2017-04-29] MEDS ORDERED: NEBMAC (10:09)
[2017-04-29] MEDS ORDERED: CRG125 PO (10:09)
[2017-04-29] MEDS ORDERED: PRED10TA PO (10:09)
[2017-04-29] MEDS ORDERED: ALBINS/ INH (10:09)
[2017-04-29] MEDS ORDERED: AZIT-57 PO (10:09)
[2017-04-29] MEDS ORDERED: LSN5 PO (10:09)
== END 2016-10-31 13:10 | disposition home or self-care (01) | DRG 683 ==
LOC: ENRESERVTM → ENRESERVDT → C.EDB 11:50 → C.MED 14:26
PROVIDERS: ADMIT Internal Medicine; ATTEND Internal Medicine
DX: N17.9 Acute kidney failure, unspecified (principal); D80.1 Nonfamilial hypogammaglobulinemia; B34.9 Viral infection, unspecified; A08.4 Viral intestinal infection, unspecified; E86.0 Dehydration; I10 Essential (primary) hypertension; M35.00 Sjogren syndrome, unspecified; K58.9 Irritable bowel syndrome, unspecified; D64.9 Anemia, unspecified; E87.8 Other disorders of electrolyte and fluid balance, not elsewhere classified; R94.8 Abnormal results of function studies of other organs and systems; Z79.899 Other long term (current) drug therapy; Z87.891 Personal history of nicotine dependence; Z79.83 Long term (current) use of bisphosphonates

== ENCOUNTER → 2017-01-26 | Outpatient (CLI) | payer BC ==
[~2017-01-26] MED LIST changes: -CEFU1TAB36 PO; -CYAN3INJ IM; +CYNI1000 INJ; +ELUX1TAB PO; +ELUX1TAB2 PO; +HYDR200T5 PO; +LISI-789 PO; +PRED10TA PO; +ULT50X OR
[2017-01-26 10:54] LABS: MAGNESIUM 2.2 mg/dl (1.8-2.4); PHOSPHORUS 3.4 mg/dl (2.5-4.9); RHEUMATOID FACTOR < 10.0 U/mL (0-15)
[2017-01-26 10:57] LABS: URINE APPEARANCE CLEAR (CLEAR); URINE BILIRUBIN NEG (NEG); URINE COLOR YELLOW; URINE EPITHELIAL CELL AUTO >30 /lpf (0-5); URINE NITRITE NEG (NEG); URINE PH 6.5 (4.5-7.5); URINE SPECIFIC GRAVITY 1.013 (1.000-1.030); UROBILINOGEN NEG (NEG)
[2017-01-26 10:58] LABS: MANUAL MICROSCOPIC REQUIRED? NO; REVIEW REQ? NO
[2017-01-26 11:02] LABS: HEPATITIS B AB NEG
[2017-01-26 11:33] LABS: RATIO 34.4 mcg/mg (0-30.0)
--- NOTE | 2017-02-05 12:34 | CODING QUERY MEDICAL NECESSITY ---
CQSUPPORTING DIAGNOSIS NEEDED A supporting diagnosis is required for the test/procedure performed on this patient in order for us to be reimbursed by the patient's insurance. Please provide a supporting diagnosis for the following test/procedure listed below next to the test name along with your signature. *If there is no additional diagnosis for this patient that would support the following test/procedure please document that below next to the test/procedure. Test(s)/Procedure(s) that require a supporting diagnosis: DOS 01/26/17 VITAMIN D TEST Provider Signature: Date: Thank you Kirstie Nettles Health Information Management Once completed, please kindly fax back to [phone] For questions please call [phone]
== END | disposition home or self-care (01) ==
LOC: C.LAB 16:06
PROVIDERS: ATTEND Internal Medicine Nephrology
DX: N18.1 Chronic kidney disease, stage 1 (principal); R94.5 Abnormal results of liver function studies; E55.9 Vitamin D deficiency, unspecified

== ENCOUNTER 2017-04-17 08:39 | Inpatient (IN) | payer BC, OTHER ==
[~2017-04-17] VITALS: Ht 160 cm; Wt 54.1 kg
[~2017-04-17 08:39] MED LIST changes: -ELUX1TAB2 PO; -LISI-789 PO; -PRED10TA PO; -ULT50X OR
[2017-04-17] MEDS ORDERED: ELUX1TAB2 PO (09:28)
[2017-04-17] MEDS ORDERED: LISI-789 PO (09:28)
[2017-04-17 10:06] LABS: BASO % 0.2 %; BASO ABS # 0.01 K/uL (0-0.2); COMPLETE YES; EOS % 1.3 %; IG% 0.2 %; LYMPH % 15.1 %; LYMPH ABS # 0.91 K/uL (1.2-3.4); MEAN CELL VOLUME 90.3 fL (80-100); MEAN CORPUSCULAR HEMOGLOBIN 31.4 pg (25-34); MEAN CORPUSCULAR HGB CONC 34.8 g/dl (32-36); MONO % 7.7 %; NEUT % 75.5 %; PLATELET COUNT 168 K/uL (130-400); RED BLOOD COUNT 2.99 M/uL (4.2-5.4); WHITE BLOOD COUNT 6.01 K/uL (4.8-10.8)
[2017-04-17 10:14] LABS: INR 0.9 (0.9-1.1); PARTIAL THROMBOPLASTIN RATIO 0.9; PROTHROMBIN TIME (PATIENT) 9.7 SECONDS (9.0-12.0)
[2017-04-17 10:18] LABS: ALT/SGPT 42 U/L (12-78); BLOOD UREA NITROGEN 22 mg/dl (7-18); BUN/CREATININE RATIO 19.8 (10-20); CALCIUM 9.2 mg/dl (8.5-10.1); CARBON DIOXIDE 22 mmol/L (21-32); CHLORIDE 111 mmol/L (98-107); GLUCOSE 74 mg/dl (70-99); POTASSIUM 4.5 mmol/L (3.5-5.1); SODIUM 141 mmol/L (136-145)
[2017-04-17 10:24] LABS: ALB/GLOB RATIO 1.4 (0.9-2); ALKALINE PHOSPHATASE 200 U/L (45-117); AST/SGOT 43 U/L (15-37); URINE APPEARANCE CLOUDY (CLEAR); URINE BILIRUBIN NEG (NEG); URINE COLOR YELLOW; URINE EPITHELIAL CELL AUTO >30 /lpf (0-5); URINE NITRITE NEG (NEG); URINE SPECIFIC GRAVITY 1.018 (1.000-1.030); UROBILINOGEN NEG (NEG)
[2017-04-17 10:31] LABS: MANUAL MICROSCOPIC REQUIRED? NO; REVIEW REQ? YES; SULFASALICYLIC ACID POS (NEG)
--- NOTE | 2017-04-17 10:36 | DIAGNOSTIC IMAGING REPORT ---
CHEST 2 VIEWS ROUTINE CLINICAL HISTORY: Dyspnea. Respiratory distress. COMPARISON STUDY: Chest CT February 07, 2016 and chest radiograph July 29, 2016. FINDINGS: Lung volumes are normal. There is no pneumothorax. There are trace bilateral pleural effusions. No consolidation is identified to suggest pneumonia. Mild interlobular septal thickening suggests pulmonary edema. Cardiomediastinal silhouette is normal. Cholecystectomy clips are present. IMPRESSION: 1. Mild interstitial pulmonary edema. 2. Trace bilateral pleural effusions. Electronically signed by: Gautam Corado M.D. 04/17/2017 10:34 AM Dictated Date/Time: 04/17/2017 10:32 AM
[2017-04-17] MEDS ORDERED: BUMETANIDE SOLN 1 MG/4 ML VIAL IV ONE (10:45)
[2017-04-17] MEDS ORDERED: MoRPHine SULFATE 4 MG/ML 1 ML CARP\\VIAL IV STA (10:48)
[2017-04-17] MEDS ORDERED: METOCLOPRAMIDE HCL INJ 5 MG/ML 2 ML VIAL IV STA (11:32)
[2017-04-17 11:43] VITALS: O2SAT 100; Ht 160 cm; Wt 54.1 kg
[2017-04-17] MEDS ORDERED: METOPROLOL TARTRATE 50 MG TAB PO STA (12:11)
[2017-04-17] MEDS ORDERED: ACETAMINOPHEN 325 MG TAB PO PRN (12:30)
[2017-04-17] MEDS ORDERED: ONDANSETRON INJ 2 MG/ML 2 ML VIAL IV PRN (12:30)
[2017-04-17] MEDS ORDERED: ACETAMINOPHEN IV 100 ML IV PRN (12:30)
--- NOTE | 2017-04-17 12:44 | EMERGENCY ROOM VISIT NOTE ---
History Report prepared by Sukhwinder: Therese Pete Under the Supervision of: Dr. Mike Andino M.D. First contact with patient: 09:33 Chief Complaint: SHORTNESS OF BREATH Stated Complaint: FLUID, TADEO, FILL FULL Nursing Triage Summary: Patient states since Sunday her body swelled began to fill with fluid. Patient gained 6 lbs in last few days. Also c/o shortness of breath and headache. Patient has been on Bumex in the past but not currently. History of Present Illness The patient is a 51 year old white female with a past medical history of Sjgren 's, mixed cryoglobulinemia, hypogammaglobulinemia, and IBS who presents to the ED with a cc of shortness of breath beginning two days ago. She feels like she is retaining fluid and states that she feels "very full." Positive nausea, vomiting, abdominal bloating, leg swelling. The patient has not been eating or drinking much. She has been unable to keep down her daily medications. The patient has had similar symptoms in the past and was on Bumex at that time. She is no longer taking that medication. She called her PCP yesterday and they were going to call her in another prescription, but she states the pharmacy never received it. The patient denies any personal history of blood clots. She shes Dr. Brooks with hematology/oncology. Source of History: patient Onset: 2 days ago Position: chest (respiratory) Quality: other (shortness of breath) Timing: worsening Modifying Factors (Worsening): eating, drinking Associated Symptoms: + nausea, + vomiting Note: Pt notes abdominal bloating and leg swelling. Review of Systems See HPI for pertinent positives and negatives. A total of ten systems were reviewed and were otherwise negative. Past Medical & Surgical Medical Problems: (1) Acute exacerbation of CHF (congestive heart failure) (2) Anemia (3) Anemia (4) Hypogammaglobulinemia (5) Mixed cryoglobulinemia (6) Sjoegren syndrome Surgical Problems: (1) H/O tubal ligation (2) History of open reduction and internal fixation (ORIF) procedure Family History Cancer Heart disease Hypertension Kidney stones Social History Smoking Status: Never Smoker Alcohol Use: occasionally Drug Use: none Marital Status: Housing Status: lives with significant other Occupation Status: employed Current/Historical Medications Scheduled Alendronate Sodium (Alendronate Sodium), 70 MG PO WK Cevimeline Hcl (Cevimeline Hcl), 30 MG PO BID Cyanocobalamin (Cyanocobalamin), 1,000 MCG INJ Mo Eluxadoline (Viberzi), 50 MG PO HS Escitalopram Oxalate (Lexapro), 5 MG PO DAILY Hydroxychloroquine Sulfate (Plaquenil), 200 MG PO BID Levothyroxine Sodium (Synthroid), 75 MCG PO DAILY Lisinopril (Zestril), 2.5 MG PO DAILY Allergies Coded Allergies: Sulfamethoxazole w/Trimethoprim (Verified Allergy, Intermediate, rash, 04/24) Physical Exam Vital Signs Date Time Temp Pulse Resp B/P (MAP) Pulse Ox O2 Delivery O2 Flow Rate FiO2 04/17/17 11:43 100 Room Air 04/17/17 11:11 102 18 167/105 100 Room Air 04/17/17 10:11 85 16 171/110 98 Room Air 04/17/17 09:04 100 Room Air 04/17/17 09:00 91 04/17/17 08:44 36.9 93 16 177/105 100 Room Air Physical Exam GENERAL: Awake, alert, well-appearing, NAD HENT: Normocephalic, atraumatic. EYES: Normal conjunctiva. Sclera non-icteric. NECK: Supple. No nuchal rigidity. FROM. RESPIRATORY: CTAB, no rhonchi, wheezing, crackles CARDIAC: RRR, no MRG ABDOMEN: Soft, epigastric TTP, BS+ MSK: No chest wall TTP, trace pretibial edema. No asymmetric swelling, no calf pain, no erythema or calor. NEURO: GCS 15, CN 2-12 intact, moves all 4s on command SKIN: No rash or jaundice noted. Medical Decision & Procedures ER Provider Diagnostic Interpretation: Radiology results as stated below per my review and radiologist interpretation: CHEST 2 VIEWS ROUTINE CLINICAL HISTORY: Dyspnea. Respiratory distress. COMPARISON STUDY: Chest CT February 07, 2016 and chest radiograph July 29, 2016. FINDINGS: Lung volumes are normal. There is no pneumothorax. There are trace bilateral pleural effusions. No consolidation is identified to suggest pneumonia. Mild interlobular septal thickening suggests pulmonary edema. Cardiomediastinal silhouette is normal. Cholecystectomy clips are present. IMPRESSION: 1. Mild interstitial pulmonary edema. 2. Trace bilateral pleural effusions. Electronically signed by: Gautam Corado M.D. 04/17/2017 10:34 AM Dictated Date/Time: 04/17/2017 10:32 AM Laboratory Results 04/17/17 09:00 Red Blood Count 2.99, Mean Corpuscular Volume 90.3, Mean Corpuscular Hemoglobin 31.4, Mean Corpuscular Hemoglobin Concent 34.8, Mean Platelet Volume 11.0, Neutrophils (%) (Auto) 75.5, Lymphocytes (%) (Auto) 15.1, Monocytes (%) (Auto) 7.7, Eosinophils (%) (Auto) 1.3, Basophils (%) (Auto) 0.2, Neutrophils # (Auto) 4.54, Lymphocytes # (Auto) 0.91, Monocytes # (Auto) 0.46, Eosinophils # (Auto) 0.08, Basophils # (Auto) 0.01 04/17/17 09:00 Test 04/17/17 09:00 White Blood Count 6.01 K/uL (4.8-10.8) Red Blood Count 2.99 M/uL (4.2-5.4) Hemoglobin 9.4 g/dL (12.0-16.0) Hematocrit 27.0 % (37-47) Mean Corpuscular Volume 90.3 fL (80-100) Mean Corpuscular Hemoglobin 31.4 pg (25-34) Mean Corpuscular Hemoglobin Concent 34.8 g/dl (32-36) Platelet Count 168 K/uL (130-400) Mean Platelet Volume 11.0 fL (7.4-10.4) Neutrophils (%) (Auto) 75.5 % Lymphocytes (%) (Auto) 15.1 % Monocytes (%) (Auto) 7.7 % Eosinophils (%) (Auto) 1.3 % Basophils (%) (Auto) 0.2 % Neutrophils # (Auto) 4.54 K/uL (1.4-6.5) Lymphocytes # (Auto) 0.91 K/uL (1.2-3.4) Monocytes # (Auto) 0.46 K/uL (0.11-0.59) Eosinophils # (Auto) 0.08 K/uL (0-0.5) Basophils # (Auto) 0.01 K/uL (0-0.2) RDW Standard Deviation 43.1 fL (36.4-46.3) RDW Coefficient of Variation 13.1 % (11.5-14.5) Immature Granulocyte % (Auto) 0.2 % Immature Granulocyte # (Auto) 0.01 K/uL (0.00-0.02) Prothrombin Time 9.7 SECONDS (9.0-12.0) Prothromb Time International Ratio 0.9 (0.9-1.1) Activated Partial Thromboplast Time 23.8 SECONDS (21.0-31.0) Partial Thromboplastin Ratio 0.9 Urine Color YELLOW Urine Appearance CLOUDY (CLEAR) Urine pH 8.0 (4.5-7.5) Urine Specific [place] 1.018 (1.000-1.030) Urine Protein 4+ (NEG) Urine Glucose (UA) NEG (NEG) Urine Ketones TRACE (NEG) Urine Occult Blood 3+ (NEG) Urine Nitrite NEG (NEG) Urine Bilirubin NEG (NEG) Urine Urobilinogen NEG (NEG) Urine Leukocyte Esterase SMALL (NEG) Urine WBC (Auto) 10-30 /hpf (0-5) Urine RBC (Auto) >30 /hpf (0-4) Urine Hyaline Casts (Auto) 1-5 /lpf (0-5) Urine Epithelial Cells (Auto) >30 /lpf (0-5) Urine Bacteria (Auto) NEG (NEG) Anion Gap 8.0 mmol/L (3-11) Est Creatinine Clear Calc Drug Dose 51.2 ml/min Estimated GFR () 68.3 Estimated GFR (Non- 58.9 BUN/Creatinine Ratio 19.8 (10-20) Calcium Level 9.2 mg/dl (8.5-10.1) Total Bilirubin 0.7 mg/dl (0.2-1) Aspartate Amino Transf (AST/SGOT) 43 U/L (15-37) Alanine Aminotransferase (ALT/SGPT) 42 U/L (12-78) Alkaline Phosphatase 200 U/L (45-117) Troponin I < 0.015 ng/ml (0-0.045) Pro-B-Type Natriuretic Peptide 6164 pg/ml (0-450) Total Protein 6.0 gm/dl (6.4-8.2) Albumin 3.5 gm/dl (3.4-5.0) Globulin 2.5 gm/dl (2.5-4.0) Albumin/Globulin Ratio 1.4 (0.9-2) Lipase 169 U/L (73-393) Laboratory results reviewed by me Medications Administered Medications (Trade) Dose Ordered Sig/Selena Route Start Time Stop Time Status Last Admin Dose Admin Bumetanide (Bumex IV) 1 mg NOW ONCE IV 04/17/17 10:45 04/17/17 10:46 DC 04/17/17 11:08 1 MG Morphine Sulfate (MoRPHine SULFATE INJ) 4 mg NOW STAT IV 04/17/17 10:48 04/17/17 10:49 DC 04/17/17 11:08 4 MG Metoprolol Tartrate (Lopressor Tab) 25 mg NOW STAT PO 04/17/17 12:11 04/17/17 12:20 DC 04/17/17 12:57 25 MG ECG Indication: SOB/dyspnea Rate (beats per minute): 83 Rhythm: normal sinus Findings: no acute ischemic change, no ectopy, other (normal intervals) ED Course 0933: The patient was evaluated in room B12B. A complete history and physical exam was performed. 1045: Bumex 1 mg IV 1048: Morphine sulfate 4 mg IV 1051: I spoke with Dr. Sal with hematology/oncology. We discussed the patient' s case. He recommended keeping the patient in the hospital for further management. 1111: I reassessed the patient. She is resting comfortably. I discussed the results and treatment plan with the patient. I answered all pertaining questions that she had. She expressed understanding and verbalized agreement. 1129: I spoke with Dr. Hay. We discussed the patients case. The patient will be evaluated by the [facility] for further management. 1132: Reglan 10 mg IV - pt refused. Medical Decision The patient is a 51 year old white female with a past medical history of Sjgren 's, mixed cryoglobulinemia, hypogammaglobulinemia, and IBS who presents to the ED with a cc of shortness of breath beginning two days ago. Differential diagnosis: Etiologies such as infections, reactive airway disease, pneumonia, pneumothorax , COPD, CHF, cardiac ischemia, pulmonary embolism, musculoskeletal, gastrointestinal, as well as others were entertained. Patient was seen and evaluated at the bedside. Patient was stating that she was feeling full in her abdomen and put on 6 pounds. Patient has had prior flare of her mixed cryoglobulinemia and believes to be similar. Patient did have blood work as well as chest x-ray were completed. Patient's chest x-ray concern for possible interstitial pulmonary edema. Patient was given 1 of Bumex given her sulfa allergy. I spoke with the link knitting machine operator who suggested the patient staying the hospital for further workup. Patient was admitted. Medication Reconcilliation Current Medication List: was personally reviewed by me Blood Pressure Screening Patient's blood pressure: Elevated blood pressure Blood pressure disposition: Referred to PCP Consults Time Called: 1043 Consulting Physician: Dr. Sal Returned Call: [address] Sal with hematology/oncology. We discussed the patient's case. He recommended keeping the patient in the hospital for further management. Additional Consults: Time Called: 1116 Consulted Physician: Dr. Hay Returned Call: 1129 Additional Comments: I spoke with Dr. Hay. We discussed the patients case. The patient will be evaluated by the [facility] for further management. Impression Primary Impression: Mixed cryoglobulinemia Additional Impressions: Sjogrens syndrome Pulmonary edema Scribe Attestation The scribe's documentation has been prepared under my direction and personally reviewed by me in its entirety. I confirm that the note above accurately reflects all work, treatment, procedures, and medical decision making performed by me. Departure Information Dispostion Being Evaluated By Hospitalist Referrals Edward Bae M.D. (PCP) Patient Instructions My [facility] Problem Qualifiers Additional Impressions: Sjogrens syndrome Sjogren's organ involvement: unspecified organ involvement Qualified Codes: M35.00 - Sicca syndrome, unspecified Pulmonary edema Chronicity: acute Qualified Codes: J81.0 - Acute pulmonary edema
[2017-04-17] MEDS: NSS + 20MEQ KCL 1000ML 1,000 ML IV SCH ×2 (14:17→23:51)
[2017-04-17 15:13] VITALS: BP 169/95; PULSE 73; TEMP 37; O2SAT 98
[2017-04-17] MEDS: CEVIMELINE~ORDER AWAITING ACTION SCH ×2 (15:35→23:37)
[2017-04-17] MEDS: KETOROLAC TROMETHAMINE 30 MG/ML VIAL IV PRN (15:36)
[2017-04-17 16:00] VITALS: O2SAT 98
--- NOTE | 2017-04-17 16:47 | ONCOLOGY CONSULTATION ---
DATE OF CONSULTATION: 04/17/2017 DATE OF CONSULTATION: 04/17/2017 REASON FOR CONSULTATION: History of mixed cryoglobulinemia. HISTORY OF PRESENT ILLNESS: Chad is a pleasant 51-year-old female patient with multiple comorbid issues, particularly Sjogren's, mixed cryoglobulinemia, hypogammaglobulinemia, and irritable bowel syndrome who presents to the Emergency Room with shortness of breath, generalized malaise and fatigue over the past several days. Apparently, she has gained weight with the complaint of feeling "very full" and thinks she may be retaining fluid. She also reports nausea, vomiting, increased leg swelling and abdominal bloating. She clearly admits to not eating or drinking much over the past couple of days. The patient sees multiple specialists including ourselves, nephrology and rheumatology at [facility]. She was diagnosed with a mixed cryoglobulinemia back in 2013 via renal biopsy. She was diagnosed with Sjogren's few years before that. Again, she follows with rheumatology in [place] and has received a course of corticosteroids in the past. Chest x-ray on admission reveals small bilateral pleural effusions with some interstitial edema noted bilaterally as well. PAST MEDICAL HISTORY: Again, as per HPI, significant for CHF, chronic anemia, hypogammaglobulinemia, mixed cryoglobulinemia, Sjogren's. PAST SURGICAL HISTORY: Included tubal ligation, open reduction and internal fixation unspecified bone. MEDICATIONS: Prior to admission include alendronate 70 mg p.o. q. weekly, cevimeline 30 mg p.o. b.i.d., vitamin B12 1000 mcg injected q. monthly, Viberzi 50 mg p.o. at bedtime, Lexapro 5 mg p.o. q. daily, Plaquenil 200 mg p.o. b.i.d., levothyroxine 75 mcg p.o. q. daily, lisinopril 2.5 mg p.o. q. daily. ALLERGIES: SULFA. FAMILY HISTORY: Positive for cancer, heart disease, hypertension, kidney stones. SOCIAL HISTORY: The patient is currently disabled, lives with her . No children. REVIEW OF SYSTEMS: As per HPI. SKIN: No rashes or lesions. HEAD, EYES, EARS, NOSE, AND THROAT: Negative for headaches, lightheadedness or dizziness. No acute visual or hearing deficits. No sinus symptoms, sore throat or dysphagia. LYMPH: No history of lymphoproliferative disease. No palpable lymphadenopathy. CARDIAC: History of CHF in the past. No current angina or palpitations. PULMONARY: Negative for shortness of breath, dyspnea or orthopnea. No cough or hemoptysis. GASTROINTESTINAL: Positive for bloating, nausea and vomiting. No diarrhea or constipation, hematochezia or melanotic stools. GENITOURINARY: No hematuria, dysuria, urinary incontinence. PSYCHIATRIC: Positive for anxiety. ENDOCRINE: Positive for hypothyroidism. NEUROLOGIC: Negative for seizure, stroke, or migraine headache. HEMATOLOGIC: Positive for chronic anemia. PHYSICAL EXAMINATION: GENERAL: Very pleasant, somewhat cachectic 51-year-old female patient in no acute distress. VITAL SIGNS: Temperature 37.0, pulse 73, respirations 18, blood pressure 169/95. SKIN: Warm, dry, noncyanotic with petechia, rash or ecchymosis. HEAD: Atraumatic, normocephalic. EYES: PERRLA, EOMI. Sclerae nonicteric. Nares patent without rhinorrhea or discharge. Throat clear. Tongue midline. Mucous membranes are moist. NECK: Supple without JVD or thyromegaly. LYMPH: No cervical, supraclavicular, axillary or inguinal palpable nodes. HEART: Regular rate and rhythm. No clicks, rubs, murmurs or gallops. LUNGS: Clear to auscultation bilaterally. ABDOMEN: Soft, nontender, nondistended, without palpable hepatosplenomegaly. EXTREMITIES: No calf tenderness or swelling. No clubbing, cyanosis or edema. NEUROLOGICAL: She is awake, alert and oriented x3. Cranial nerves II-XII are intact. No gross motor or sensory deficits are noted. LABORATORY DATA: WBC count 6000, hemoglobin 9.4, platelet count 168,000. Sodium 141, potassium 4.5, chloride 111, carbon dioxide 22, creatinine 1.1, BUN 22. BMP 6164, albumin 3.5. IMPRESSION: 1. Fatigue, generalized malaise. 2. Abdominal bloating, pain, nausea and vomiting. 3. History of Sjogren's syndrome. 4. History of mixed cryoglobulinemia. 5. Elevated BNP consistent with congestive heart failure. PLAN: I have been asked to visit with Catrina today. She was admitted with the above symptomatology. It is unclear whether this is secondary to her history of mixed cryoglobulinemia. Will pursue serum cryoglobulins today. I see no reason not to put her on a short course of empiric steroids. I have suggested 50 mg dose of prednisone daily over the next couple days and weaning 10 mg based on her response. She follows regularly with nephrology and rheumatology in [place] and should see both of these specialists in short order after discharge. She is due to return to the [facility] in the next couple of months. I have not seen Chad in the past, so I do not feel totally comfortable with making further recommendations beyond empiric steroids. Perhaps it might be helpful to pursue an echocardiogram to check her current ejection fraction. Otherwise, I would continue medical management as ordered. I will continue to follow her periodically during her hospital stay. Thank you very much for allowing us to participate in her care.
[2017-04-17] MEDS: METOPROLOL TARTRATE 25 MG TAB PO SCH (20:11)
[2017-04-17] MEDS: HYDROXYCHLOROQUINE SULFATE 200 MG TAB PO SCH (20:11)
[2017-04-17] MEDS: ZOLPIDEM TARTRATE 5 MG TAB PO PRN (20:12)
[2017-04-18 00:05] VITALS: BP 143/84; PULSE 63; TEMP 36.9; O2SAT 99
[2017-04-18] MEDS: LEVOTHYROXINE 75 MCG TAB PO SCH ×2 (04:31→05:36)
[2017-04-18 05:49] LABS: BASO % 0.4 %; BASO ABS # 0.02 K/uL (0-0.2); EOS % 1.6 %; HEMATOCRIT 25.8 % (37-47); LYMPH % 11.5 %; LYMPH ABS # 0.58 K/uL (1.2-3.4); MEAN CELL VOLUME 91.5 fL (80-100); MEAN CORPUSCULAR HEMOGLOBIN 30.5 pg (25-34); MEAN CORPUSCULAR HGB CONC 33.3 g/dl (32-36); MEAN PLATELET VOLUME 10.4 fL (7.4-10.4); MONO % 5.8 %; NEUT % 80.7 %; PLATELET COUNT 137 K/uL (130-400); RED BLOOD COUNT 2.82 M/uL (4.2-5.4); WHITE BLOOD COUNT 5.04 K/uL (4.8-10.8)
[2017-04-18] MEDS ORDERED: NURSING VERBAL MED ORDER ONE ×2 (06:15→15:30)
[2017-04-18 06:30] LABS: COMPLETE YES
[2017-04-18 06:44] LABS: BUN/CREATININE RATIO 29.5 (10-20); CALCIUM 8.3 mg/dl (8.5-10.1); MAGNESIUM 2.7 mg/dl (1.8-2.4); POTASSIUM 5.7 mmol/L (3.5-5.1)
[2017-04-18] MEDS: TRAMADOL HCL 50 MG TAB PO PRN (06:46)
[2017-04-18] MEDS: RANITIDINE HCL 150 MG TAB PO SCH (06:46)
[2017-04-18 07:31] VITALS: BP 144/83; PULSE 68; TEMP 36.8; O2SAT 96
[2017-04-18] MEDS: CEVIMELINE~ORDER AWAITING ACTION SCH ×2 (08:00→15:24)
[2017-04-18] MEDS: METOPROLOL TARTRATE 25 MG TAB PO SCH ×2 (08:29→20:17)
[2017-04-18] MEDS: ESCITALOPRAM OXALATE 10 MG TAB PO SCH (08:30)
[2017-04-18] MEDS: HYDROXYCHLOROQUINE SULFATE 200 MG TAB PO SCH ×2 (08:30→20:18)
--- NOTE | 2017-04-18 08:52 | HEME/ONC PROGRESS NOTE ---
DATE: 04/18/2017 DIAGNOSES: 1. Diffuse arthralgias and myalgias. 2. Malaise/fatigue. 3. Mixed cryoglobulinemia. 4. Elevated BNP. 5. Abdominal bloating/pain/nausea and vomiting. SUBJECTIVE: Visited Catrina at bedside again today. Seems to be struggling with arthralgias. Pending prednisone 50 mg this morning. Cryoglobulins are pending at the time of this dictation. Nursing reports no overnight difficulties otherwise. PHYSICAL EXAMINATION: GENERAL: She is in no acute distress. VITAL SIGNS: Temperature 36.8, pulse 68, respiratory rate 16, blood pressure 144/83. SKIN: Without rash or lesion. HEENT: Oral mucosa without erythema or ulceration. NECK: Supple. HEART: Regular rate and rhythm. LUNGS: Clear to auscultation. ABDOMEN: Soft, nontender, nondistended. No rigidity or guarding. EXTREMITIES: No clubbing, cyanosis or edema. NEUROLOGIC: Grossly intact. LABORATORY DATA: Cryoglobulins pending. WBC count 5040, hemoglobin 8.6, platelet count 137,000. Sodium 144, potassium 5.7, chloride 116, carbon dioxide 22, BUN 30, creatinine 1.0. Magnesium elevated at 2.7. IMPRESSION: 1. Hyperkalemia. 2. Arthralgias and myalgias. 3. [place]/fatigue. 4. Abdominal pain, bloating, nausea and vomiting. 5. Hypermagnesemia. 6. Mixed cryoglobulinemia by history. 7. Elevated BNP. PLAN: Visited Catrina at bedside today. She appears very uncomfortable, complaining predominantly of arthralgias and myalgias this morning, particularly left shoulder, behind the scapula. Her initial dose of prednisone is pending. I trust the electrolyte abnormalities will be addressed by the primary medical team. My plan is to continue empiric prednisone throughout her hospital stay. Depending on response, we will formulate a rapid wean as she progresses toward discharge. Agree with current medical management otherwise. We will continue to follow Catrina throughout her hospital stay. Thank you very much for allowing us to participate in her care.
--- NOTE | 2017-04-18 09:10 | History and Physical ---
History & Physical Date & Time of Service: Apr 18, 2017 at 09:01 Chief Complaint: Mixed Cryoglobulinemia, Sjoegren Syndrome Primary Care Physician: Edward Bae M.D. History of Present Illness Source: patient The patient is a 51-year-old female with past medical history of Sjogren's syndrome, mixed cryoglobulinemia, hypogammaglobulinemia and IBS who presents emergency department with 2 days of worsening shortness of breath, generalized fatigue, nausea, vomiting, abdominal bloating and a sense of leg swelling. Decreased oral intake because of her medications down due to vomiting. She's had no recent travels or known sick exposures. Past Medical/Surgical History Medical Problems: (1) Anemia Status: Chronic (2) Hypogammaglobulinemia Status: Chronic (3) Mixed cryoglobulinemia Status: Chronic (4) Sjoegren syndrome Status: Chronic Surgical Problems: (1) H/O tubal ligation Status: Resolved (2) History of open reduction and internal fixation (ORIF) procedure Status: Resolved Family History Cancer Heart disease Hypertension Kidney stones Social History Smoking Status: Never Smoker Smokeless Tobacco Use: No Alcohol Use: none Drug Use: none Marital Status: Housing status: lives with family Occupational Status: employed Immunizations History of Influenza Vaccine: No History of Tetanus Vaccine?: Unknown History of Pneumococcal: No History of Hepatitis B Vaccine: No Multi-Drug Resistant Organisms History of MDRO: No Allergies Coded Allergies: Sulfamethoxazole w/Trimethoprim (Verified Allergy, Intermediate, rash, 04/24) Home Medications Scheduled Alendronate Sodium (Alendronate Sodium), 70 MG PO WK Cevimeline Hcl (Cevimeline Hcl), 30 MG PO BID Cyanocobalamin (Cyanocobalamin), 1,000 MCG INJ Mo Eluxadoline (Viberzi), 50 MG PO HS Escitalopram Oxalate (Lexapro), 5 MG PO DAILY Hydroxychloroquine Sulfate (Plaquenil), 200 MG PO BID Levothyroxine Sodium (Synthroid), 75 MCG PO DAILY Lisinopril (Zestril), 2.5 MG PO DAILY Review of Systems The patient denies chest pain, palpitations, vision change, hearing change, sore throat, fevers, chills, sweats, weight change,diarrhea or constipation, blood in urine or stool, dysuria, urinary frequency or urgency, headache, memory loss, rash, abnormal bruising or bleeding, imbalance, focal weakness, numbness or tingling in arms or legs, back or neck pain, or night sweats. The review of systems is otherwise negative other than for that already noted above, and at least 10 systems have been reviewed. Physical Exam Vital Signs Date Time Temp Pulse Resp B/P (MAP) Pulse Ox O2 Delivery O2 Flow Rate FiO2 04/18/17 07:31 36.8 68 16 144/83 (103) 96 Room Air 04/18/17 00:05 36.9 63 20 143/84 (103) 99 Room Air 04/17/17 23:59 Room Air 04/17/17 16:00 98 Room Air 04/17/17 15:13 37.0 73 18 169/95 (119) 98 04/17/17 12:52 79 16 140/93 99 Room Air 04/17/17 11:43 100 Room Air 04/17/17 11:11 102 18 167/105 100 Room Air 04/17/17 10:11 85 16 171/110 98 Room Air 04/17/17 09:04 100 Room Air The patient is awake, well-developed and adequately nourished, alert and oriented 3, normocephalic and atraumatic, looks fatigued and pale, lying in bed and in no acute distress. HEENT--PERRL, EOMI, mucous membranes and oropharynx dry. Neck--supple, no JVD or bruits, thyroid normal, trachea midline, no adenopathy. Heart--normal S1 and S2, no extra beats, no murmurs, rubs or gallops. Lungs--clear bilaterally with good air movement, no respiratory distress, no accessory muscle use. Abdomen--normal bowel sounds and soft, nontender and nondistended, no hernias or masses, no organomegaly. Extremities--no cyanosis, clubbing or edema. There are good distal pulses b/l. Dermatologic--normal skin turgor, normal color, warm and dry, no abnormal lymph nodes, no rash. Neurologic--cranial nerves II through XII grossly intact, motor and sensory examination normal. Rheumatologic--normal range of motion, nontender, muscles and joints. Psychiatric--normal affect. Diagnostics Laboratory Results Results Past 24 Hours Test 04/18/17 05:27 Range/Units White Blood Count 5.04 4.8-10.8 K/uL Red Blood Count 2.82 4.2-5.4 M/uL Hemoglobin 8.6 12.0-16.0 g/dL Hematocrit 25.8 37-47 % Mean Corpuscular Volume 91.5 80-100 fL Mean Corpuscular Hemoglobin 30.5 25-34 pg Mean Corpuscular Hemoglobin Concent 33.3 32-36 g/dl Platelet Count 137 130-400 K/uL Mean Platelet Volume 10.4 7.4-10.4 fL Neutrophils (%) (Auto) 80.7 % Lymphocytes (%) (Auto) 11.5 % Monocytes (%) (Auto) 5.8 % Eosinophils (%) (Auto) 1.6 % Basophils (%) (Auto) 0.4 % Neutrophils # (Auto) 4.07 1.4-6.5 K/uL Lymphocytes # (Auto) 0.58 1.2-3.4 K/uL Monocytes # (Auto) 0.29 0.11-0.59 K/uL Eosinophils # (Auto) 0.08 0-0.5 K/uL Basophils # (Auto) 0.02 0-0.2 K/uL RDW Standard Deviation 44.7 36.4-46.3 fL RDW Coefficient of Variation 13.3 11.5-14.5 % Immature Granulocyte % (Auto) 0.0 % Immature Granulocyte # (Auto) 0.00 0.00-0.02 K/uL Red Blood Cell Morphology Unremarkable Sodium Level 144 136-145 mmol/L Potassium Level 5.7 3.5-5.1 mmol/L Chloride Level 116 98-107 mmol/L Carbon Dioxide Level 22 21-32 mmol/L Anion Gap 6.0 3-11 mmol/L Blood Urea Nitrogen 30 7-18 mg/dl Creatinine 1.00 0.60-1.20 mg/dl Est Creatinine Clear Calc Drug Dose 56.3 ml/min Estimated GFR () 76.6 Estimated GFR (Non- 66.1 BUN/Creatinine Ratio 29.5 10-20 Random Glucose 74 70-99 mg/dl Calcium Level 8.3 8.5-10.1 mg/dl Magnesium Level 2.7 1.8-2.4 mg/dl Diagnostic Radiology Patient Name: ANIA ROBLES Unit Number: [id number] Dictated: 04/17/171031 Transcribed: 04/17/171031 JA Printed Date/Time: [~ rep prt dt]/[~ rep prt tm] [~ rep ct labl] - [~ rep ct ivnm] [facility] Radiology Department [place], [place] [id number] Dictated: 04/17/171031 Transcribed: 04/17/171031 JA Printed Date/Time: [~ rep prt dt]/[~ rep prt tm] [~ rep ct labl] - [~ rep ct ivnm] [~ rep ct add3]] CHEST 2 VIEWS ROUTINE CLINICAL HISTORY: Dyspnea. Respiratory distress. COMPARISON STUDY: Chest CT February 07, 2016 and chest radiograph July 29, 2016. FINDINGS: Lung volumes are normal. There is no pneumothorax. There are trace bilateral pleural effusions. No consolidation is identified to suggest pneumonia. Mild interlobular septal thickening suggests pulmonary edema. Cardiomediastinal silhouette is normal. Cholecystectomy clips are present. IMPRESSION: 1. Mild interstitial pulmonary edema. 2. Trace bilateral pleural effusions. Electronically signed by: Gautam Corado M.D. 04/17/2017 10:34 AM Dictated Date/Time: 04/17/2017 10:32 AM The status of this report is Signed. Draft = Not yet reviewed or approved by Radiologist. Signed = Reviewed and approved by Radiologist. <AttendingPhy></AttendingPhy> <FamilyPhy>Edward Bae M.D.</FamilyPhy> < PrimaryPhy>Edward Bae M.D.</PrimaryPhy> <UnitNumber>[id number]</UnitNumber> <VisitNumber>[id number]</VisitNumber> <PatientName>ANIA ROBLES</ PatientName> <DateOfBirth>1965</DateOfBirth> <Location>C.EDB</Location> < ServiceDate>04/17/17</ServiceDate> <MNE>ESINDI</MNE> <OrderingPhy>Mike Andino M.D.</OrderingPhy> <OrderingPhyMNE>f rep ord dr guerrero</OrderingPhyMNE> < DictatingPhyMNE>f rep dict dr guerrero</DictatingPhyMNE> <CCListMNE>f rep ct yolanda</ CCListMNE> <AdmittingPhyMNE>f pt admit dr guerrero</AdmittingPhyMNE> <AttendingPhyMNE >f pt attend dr guerrero</AttendingPhyMNE> <ConsultingPhyMNE>f pt consult dr guerrero</ConsultingPhyMNE> <FamilyPhyMNE>f pt fam dr guerrero</FamilyPhyMNE> <OtherPhyMNE>f pt other dr guerrero</OtherPhyMNE> < PrimaryPhyMNE>f pt prim care dr guerrero</PrimaryPhyMNE> <ReferringPhyMNE>f pt referring dr guerrero</ReferringPhyMNE> EKG EKG shows normal sinus rhythm at 83 bpm, no acute ST-T changes, and no change compared the second 2005 Impression Assessment and Plan Sjogren's flare/respiratory lungs anemia/hypogammaglobulinemia--- Toradol 30 mg IV every 6 hours when necessary NSS with KCl 20 mEq at 100 ML's per hour. Continue hydroxychloroquine 200 mg by mouth twice a day. Hematology has been called by the ED, and will direct the rest of her care. Depression--continue Lexapro 5 mg by mouth daily. Consideration should be made for changing the patient to Cymbalta to deal with both mood and pain. Hypertension--continue lisinopril 2.5 mg by mouth daily. IBS with diarrhea --Stop Viberzi Place on cholestyramine if develops symptoms. Hypothyroidism--continue levothyroxine sodium 75 g by mouth daily. Level of Care Med/Surg Advanced Directives Existing Advance Directive: No Existing Living Will: No Existing Power of Services Executive: No Resuscitation Status FULL RESUSCITATION VTE Prophylaxis VTE Risk Assessment Done? Y/N: Yes Risk Level: Moderate Given or contraindicated: SCD's Social Service Consult None Apply
[2017-04-18] MEDS: KETOROLAC TROMETHAMINE 30 MG/ML VIAL IV PRN ×2 (10:05→16:21)
[2017-04-18] MEDS: NSS + 20MEQ KCL 1000ML 1,000 ML IV SCH (10:05)
--- NOTE | 2017-04-18 12:18 | Clinical Documentation Query ---
KELSEY Yang : CLINICAL DOCUMENTATION QUERY Patient is a 51 year old female admitted with Sjogren's syndrome flare and "elevated BNP consistent with CHF". She described to oncologic financial services education consultant, a complaint of feeling "very full", with associated N/V, increased leg swelling and abdominal bloating. Chest radiograph noted small bilateral pleural effusions with interstitial edema. Suggestions included obtaining an echocardiogram. She recieved IV Bumex in the ED. In your clinical opinion is this patient being managed for: ( ) Acute pulmonary edema on admission, treated with IV Bumex, resolved ( ) Not Agree ( ) Other explanation of clinical findings (Please Explain) ( ) Unable to determine (Please Define) ( ) Need to Discuss The medical record reflects the following clinical findings, treatment, and risk factors. Clinical Indicators: As above Treatment: I/O, daily weights, IV Bumex on admission Risk Factors: Sjogren's syndrome Please clarify and document your clinical opinion in the progress notes and discharge summary. Terms such as "probable", "suspected", "likely", "questionable", "possible", or "still to be ruled out" are acceptable. IF IN AGREEMENT, YOU MUST DOCUMENT ABOVE DIAGNOSTIC STATEMENT IN DAILY PROGRESS NOTES AND DISCHARGE SUMMARY. This document is not part of the patient's record. Thank You, Elías Berman RN [phone]
[2017-04-18] MEDS ORDERED: SODIUM CHLORIDE 0.9% 500ML 500 ML IV ONE (14:15)
--- NOTE | 2017-04-18 15:07 | Progress Note ---
Subjective Date of Service: Apr 18, 2017. Subjective Pt evaluation today including: conversation w/ patient, conversation w/ family , physical exam Chad came in after feeling fatigued with SOB. Patient has history of cryoglobulinemia. Patient today reports feeling better today, still has fatigue, low energy, but feels mildly better in regards to SOB, muscle pain and abdominal pain. Problem List Medical Problems: (1) Acute renal failure Status: Acute (2) CHF (congestive heart failure) Status: Acute (3) Dehydration Status: Acute (4) Edema Status: Acute (5) Mixed cryoglobulinemia Status: Chronic (6) Myositis Status: Acute (7) Pulmonary edema Status: Acute (8) Pulmonary edema Status: Acute (9) Sjogrens syndrome Status: Acute (10) UTI (urinary tract infection) Status: Acute (11) Viral upper respiratory illness Status: Acute (12) Vomiting and diarrhea Status: Acute Review of Systems Constitutional: No fever, No chills Respiratory: No cough, No sputum Cardiac: No chest pain, No orthopnea Abdomen: + pain, + nausea Musculoskeletal: No joint pain Neurologic: No memory loss, No paralysis Psychiatric: No depression symptoms, No anhedonism Heme: No abnormal bleeding/bruising All Other Systems: Reviewed and Negative Medications Current Inpatient Medications Medications (Trade) Dose Ordered Sig/Selena Route Start Time Stop Time Status Last Admin Dose Admin Escitalopram Oxalate (Lexapro Tab) 5 mg DAILY PO 04/18/17 08:00 05/18/17 08:59 04/18/17 08:30 5 MG Hydroxychloroquine Sulfate (Plaquenil Tab) 200 mg BID PO 04/17/17 20:00 05/17/17 20:59 04/18/17 20:18 200 MG Levothyroxine Sodium (Synthroid Tab) 75 mcg DAILYBB PO 04/18/17 06:30 05/18/17 06:29 04/19/17 06:35 75 MCG Miscellaneous Information (Order Awaiting Action) 1 ea QS N/A 04/17/17 16:00 05/17/17 15:59 Metoprolol Tartrate (Lopressor Tab) 25 mg BID PO 04/17/17 20:00 05/17/17 20:59 04/19/17 07:40 25 MG Acetaminophen (Tylenol Tab) 650 mg Q4H PRN PO 04/17/17 12:30 05/17/17 12:29 Zolpidem Tartrate (Ambien Tab) 5 mg HSZ PRN PO 04/17/17 12:30 05/17/17 12:29 04/18/17 20:17 5 MG Ondansetron HCl (Zofran Inj) 4 mg Q6H PRN IV 04/17/17 12:30 05/17/17 12:29 04/18/17 20:17 4 MG Tramadol HCl (Ultram Tab) 50 mg Q4H PRN PO 04/17/17 12:30 05/17/17 12:29 04/18/17 06:46 50 MG Ketorolac Tromethamine (Toradol Inj) 30 mg Q6H PRN IV 04/17/17 12:30 04/22/17 12:29 04/18/17 16:21 30 MG Acetaminophen 100 ml @ 400 mls/hr Q8H PRN IV 04/17/17 12:30 05/17/17 12:29 Prednisone (PredniSONE TAB) 50 mg DAILY PO 04/18/17 08:00 05/18/17 07:59 04/18/17 08:29 50 MG Ranitidine HCl (zANTac TAB) 150 mg DAILY PO 04/18/17 08:00 05/18/17 07:59 04/18/17 06:46 150 MG Objective Vital Signs Date Time Temp Pulse Resp B/P (MAP) Pulse Ox O2 Delivery O2 Flow Rate FiO2 04/18/17 08:00 Room Air 04/18/17 07:31 36.8 68 16 144/83 (103) 96 Room Air 04/18/17 00:05 36.9 63 20 143/84 (103) 99 Room Air 04/17/17 23:59 Room Air 04/17/17 16:00 98 Room Air 04/17/17 15:13 37.0 73 18 169/95 (119) 98 Physical Exam General Appearance: WD/WN Neck: supple, no adenopathy Respiratory/Chest: chest non-tender, lungs clear, normal breath sounds Cardiovascular: regular rate, rhythm, no edema, no gallop Abdomen: normal bowel sounds, non tender, soft Extremities: non-tender Neurologic/Psychiatric: 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 II-XII nml as tested Skin: normal color Lymphatic: no adenopathy Laboratory Results Last 24 Hours Test 04/18/17 05:27 White Blood Count 5.04 K/uL Red Blood Count 2.82 M/uL Hemoglobin 8.6 g/dL Hematocrit 25.8 % Mean Corpuscular Volume 91.5 fL Mean Corpuscular Hemoglobin 30.5 pg Mean Corpuscular Hemoglobin Concent 33.3 g/dl Platelet Count 137 K/uL Mean Platelet Volume 10.4 fL Neutrophils (%) (Auto) 80.7 % Lymphocytes (%) (Auto) 11.5 % Monocytes (%) (Auto) 5.8 % Eosinophils (%) (Auto) 1.6 % Basophils (%) (Auto) 0.4 % Neutrophils # (Auto) 4.07 K/uL Lymphocytes # (Auto) 0.58 K/uL Monocytes # (Auto) 0.29 K/uL Eosinophils # (Auto) 0.08 K/uL Basophils # (Auto) 0.02 K/uL RDW Standard Deviation 44.7 fL RDW Coefficient of Variation 13.3 % Immature Granulocyte % (Auto) 0.0 % Immature Granulocyte # (Auto) 0.00 K/uL Red Blood Cell Morphology Unremarkable Sodium Level 144 mmol/L Potassium Level 5.7 mmol/L Chloride Level 116 mmol/L Carbon Dioxide Level 22 mmol/L Anion Gap 6.0 mmol/L Blood Urea Nitrogen 30 mg/dl Creatinine 1.00 mg/dl Est Creatinine Clear Calc Drug Dose 56.3 ml/min Estimated GFR () 76.6 Estimated GFR (Non- 66.1 BUN/Creatinine Ratio 29.5 Random Glucose 74 mg/dl Calcium Level 8.3 mg/dl Magnesium Level 2.7 mg/dl Assessment and Plan Sjogren's flare/respiratory lungs anemia/hypogammaglobulinemia--- Currently on prednisone 50 mg PO daily Toradol 30 mg IV every 6 hours when necessary will hold NSS with potassium and give a bolus of normal saline. Continue hydroxychloroquine 200 mg by mouth twice a day. Appreciate hem/onc input My plan is to continue empiric prednisone throughout her hospital stay. Depending on response, we will formulate a rapid wean as she progresses toward discharge . Hyperkalemia Likely secondary to fluid with potassium. Concerned over possible other causes. As mentioned above, will give bolus and monitor. Order labs such as CK Depression--continue Lexapro 5 mg by mouth daily. Consideration should be made for changing the patient to Cymbalta to deal with both mood and pain. Hypertension--continue lisinopril 2.5 mg by mouth daily. IBS with diarrhea --Stop Viberzi Place on cholestyramine if develops symptoms. Hypothyroidism--continue levothyroxine sodium 75 g by mouth daily. Continued [facility] stay due to: multiple IV medications needed
[2017-04-18 16:00] VITALS: O2SAT 96
[2017-04-18 16:01] VITALS: BP 173/100; PULSE 58; TEMP 36.5; O2SAT 100
[2017-04-18 16:19] VITALS: BP 144/88; PULSE 60; O2SAT 99
[2017-04-18] MEDS: ZOLPIDEM TARTRATE 5 MG TAB PO PRN (20:17)
[2017-04-19 00:45] VITALS: BP 145/92; PULSE 48; TEMP 36.5; O2SAT 99
[2017-04-19] MEDS: LEVOTHYROXINE 75 MCG TAB PO SCH (06:35)
[2017-04-19 06:47] LABS: BASO % 0.3 %; BASO ABS # 0.01 K/uL (0-0.2); EOS % 0.6 %; HEMATOCRIT 24.1 % (37-47); IG% 0.3 %; LYMPH % 22.9 %; LYMPH ABS # 0.79 K/uL (1.2-3.4); MEAN CELL VOLUME 90.9 fL (80-100); MEAN CORPUSCULAR HEMOGLOBIN 30.6 pg (25-34); MEAN CORPUSCULAR HGB CONC 33.6 g/dl (32-36); MEAN PLATELET VOLUME 11.4 fL (7.4-10.4); MONO % 10.1 %; NEUT % 65.8 %; PLATELET COUNT 121 K/uL (130-400); RED BLOOD COUNT 2.65 M/uL (4.2-5.4); WHITE BLOOD COUNT 3.45 K/uL (4.8-10.8)
[2017-04-19 07:17] LABS: BUN/CREATININE RATIO 30.1 (10-20); CALCIUM 7.7 mg/dl (8.5-10.1); CREATININE 1.2 mg/dl (0.60-1.20); MAGNESIUM 2.7 mg/dl (1.8-2.4); POTASSIUM 5.9 mmol/L (3.5-5.1); URIC ACID 7.9 mg/dl (2.6-7.2)
[2017-04-19 07:20] LABS: PHOSPHORUS 3.8 mg/dl (2.5-4.9)
[2017-04-19] MEDS: METOPROLOL TARTRATE 25 MG TAB PO SCH ×2 (07:40→20:12)
[2017-04-19 07:49] VITALS: BP_SYST 177; BP_SYST 181; BP_DIAS 102; BP_DIAS 109; PULSE 72; TEMP 36.6; O2SAT 100
[2017-04-19] MEDS: CEVIMELINE~ORDER AWAITING ACTION SCH ×4 (07:51→23:08)
[2017-04-19 07:59] LABS: COMPLETE YES; GIANT PLATELETS 1+
[2017-04-19] MEDS ORDERED: SODIUM CHLORIDE 0.9% 500ML 500 ML IV ONE (08:30)
[2017-04-19] MEDS ORDERED: SODIUM POLYST. SULF SUSP 15G/60ML PO ONE (08:30)
[2017-04-19] MEDS: ESCITALOPRAM OXALATE 10 MG TAB PO SCH (08:35)
[2017-04-19] MEDS: RANITIDINE HCL 150 MG TAB PO SCH (08:36)
[2017-04-19] MEDS: HYDROXYCHLOROQUINE SULFATE 200 MG TAB PO SCH ×2 (08:36→20:11)
--- NOTE | 2017-04-19 08:40 | HEME/ONC PROGRESS NOTE ---
DATE: 04/19/2017 DIAGNOSES: 1. Diffuse arthralgias or myalgias. 2. Malaise/fatigue. 3. Mixed cryoglobulinemia. 4. Elevated beta natriuretic peptide. 5. Abdominal bloating, pain, nausea and vomiting. SUBJECTIVE: I examined Chad at bedside again today. Arthralgias are a bit better. She did receive her initial dose of oral prednisone. Slept well overnight. Cryoglobulins are pending. Nursing reports no overnight difficulties otherwise. Tolerating diet and moving her bowels regularly. PHYSICAL EXAMINATION: GENERAL: She is in no acute distress. VITAL SIGNS: Temperature 36.6, pulse 72, respirations 16, blood pressure 177/109. SKIN: Without rash or lesion. HEENT: Oral mucosa without erythema or ulceration. NECK: Supple. HEART: Regular rate and rhythm. LUNGS: Clear to auscultation. ABDOMEN: Soft, nontender, nondistended. EXTREMITIES: No clubbing, cyanosis or edema. NEUROLOGIC: Grossly intact. LABORATORY DATA: WBC count 3450, hemoglobin 8.1, platelet count 121,000. Sodium 144, potassium 5.9, chloride 118, carbon dioxide 19, BUN 36, and creatinine 1.20. IMPRESSION: 1. Hypercalcemia. 2. Arthralgias or myalgias. 3. Malaise/fatigue. 4. Abdominal pain, bloating, nausea and vomiting. 5. Hypermagnesemia. 6. Mixed cryoglobulinemia by history. 7. Elevated beta natriuretic peptide. PLAN: I visited with Chad this morning. Clinically, slightly better. Arthralgias are certainly improved. She will receive her second dose of oral prednisone today. May consider Kayexalate to correct her potassium. My plan is to rapidly wean her providing 50 mg dose today and tomorrow and then sending her out with 40 mg dose for three days, 30 mg for three days, 20 mg for three days and 10 mg for three days before discontinuing. I would also recommend she follow up expediently with the rheumatologic service in [place] where she has doctor-patient relationship. May want to consider giving her a unit of blood, which may be helpful to improve her general wellbeing. Thank you for allowing me to participate in her care and will continue to follow her during her hospital stay.
[2017-04-19] MEDS ORDERED: CALCIUM GLUCONATE 10% 1,000 MG in SODIUM CHLORIDE 0.9% 50ML 50 ML IV SCH (08:45)
[2017-04-19 08:52] LABS: ALKALINE PHOSPHATASE 146 U/L (45-117); ALT/SGPT 31 U/L (12-78); AST/SGOT 37 U/L (15-37)
[2017-04-19] MEDS ORDERED: SODIUM CHLORIDE 0.9% 1000ML 1,000 ML IV SCH (09:00)
[2017-04-19 15:11] LABS: BUN/CREATININE RATIO 29.2 (10-20); CALCIUM 8.2 mg/dl (8.5-10.1); CREATININE 1.2 mg/dl (0.60-1.20); POTASSIUM 6.3 mmol/L (3.5-5.1)
[2017-04-19] MEDS ORDERED: SODIUM POLYST. SULF SUSP 15G/60ML PO STA (15:14)
[2017-04-19] MEDS: SODIUM CHLORIDE 0.45% 1000ML 1,000 ML IV SCH ×2 (15:25→20:12)
[2017-04-19 16:00] VITALS: O2SAT 100
[2017-04-19 16:16] VITALS: BP 157/91; PULSE 71; TEMP 36.5; O2SAT 99
[2017-04-19] MEDS ORDERED: POLYETHYLENE (MIRALAX) 17 GM PACK PO PRN (17:45)
[2017-04-19] MEDS ORDERED: NURSING VERBAL MED ORDER ONE (17:45)
[2017-04-19] MEDS: KETOROLAC TROMETHAMINE 30 MG/ML VIAL IV PRN (21:54)
[2017-04-19] MEDS ORDERED: NURSING DECISION MEDICATION ORDER SCH (22:00)
[2017-04-19] MEDS ORDERED: COUGH DROP (SUGAR FREE) LOZ 24 LOZ/1 BOX PO PRN (22:15)
--- NOTE | 2017-04-19 22:42 | Progress Note ---
Subjective Date of Service: Apr 19, 2017. Problem List Medical Problems: (1) Acute renal failure Status: Acute (2) CHF (congestive heart failure) Status: Acute (3) Dehydration Status: Acute (4) Edema Status: Acute (5) Mixed cryoglobulinemia Status: Chronic (6) Myositis Status: Acute (7) Pulmonary edema Status: Acute (8) Pulmonary edema Status: Acute (9) Sjogrens syndrome Status: Acute (10) UTI (urinary tract infection) Status: Acute (11) Viral upper respiratory illness Status: Acute (12) Vomiting and diarrhea Status: Acute Objective Vital Signs Date Time Temp Pulse Resp B/P (MAP) Pulse Ox O2 Delivery O2 Flow Rate FiO2 04/19/17 16:16 36.5 71 18 157/91 (113) 99 Room Air 04/19/17 16:00 100 Room Air 04/19/17 08:00 Room Air 04/19/17 07:49 36.6 72 16 177/109 (131) 100 Room Air 181/102 (128) 04/19/17 00:45 36.5 48 16 145/92 (109) 99 Room Air 04/18/17 23:59 Room Air Laboratory Results Last 24 Hours Test 04/19/17 06:23 04/19/17 14:22 White Blood Count 3.45 K/uL Red Blood Count 2.65 M/uL Hemoglobin 8.1 g/dL Hematocrit 24.1 % Mean Corpuscular Volume 90.9 fL Mean Corpuscular Hemoglobin 30.6 pg Mean Corpuscular Hemoglobin Concent 33.6 g/dl Platelet Count 121 K/uL Mean Platelet Volume 11.4 fL Neutrophils (%) (Auto) 65.8 % Lymphocytes (%) (Auto) 22.9 % Monocytes (%) (Auto) 10.1 % Eosinophils (%) (Auto) 0.6 % Basophils (%) (Auto) 0.3 % Neutrophils # (Auto) 2.27 K/uL Lymphocytes # (Auto) 0.79 K/uL Monocytes # (Auto) 0.35 K/uL Eosinophils # (Auto) 0.02 K/uL Basophils # (Auto) 0.01 K/uL RDW Standard Deviation 44.6 fL RDW Coefficient of Variation 13.3 % Immature Granulocyte % (Auto) 0.3 % Immature Granulocyte # (Auto) 0.01 K/uL Giant Platelets 1+ Sodium Level 144 mmol/L 143 mmol/L Potassium Level 5.9 mmol/L 6.3 mmol/L Chloride Level 118 mmol/L 117 mmol/L Carbon Dioxide Level 19 mmol/L 17 mmol/L Anion Gap 7.0 mmol/L 9.0 mmol/L Blood Urea Nitrogen 36 mg/dl 35 mg/dl Creatinine 1.20 mg/dl 1.20 mg/dl Est Creatinine Clear Calc Drug Dose 46.9 ml/min 46.9 ml/min Estimated GFR () 61.5 61.5 Estimated GFR (Non- 53.0 53.0 BUN/Creatinine Ratio 30.1 29.2 Random Glucose 85 mg/dl 109 mg/dl Uric Acid 7.9 mg/dl Calcium Level 7.7 mg/dl 8.2 mg/dl Phosphorus Level 3.8 mg/dl Magnesium Level 2.7 mg/dl Total Bilirubin 0.2 mg/dl Direct Bilirubin < 0.1 mg/dl Aspartate Amino Transf (AST/SGOT) 37 U/L Alanine Aminotransferase (ALT/SGPT) 31 U/L Alkaline Phosphatase 146 U/L Total Creatine Kinase 849 U/L Total Protein 4.7 gm/dl Albumin 2.4 gm/dl Assessment and Plan Sjogren's flare/respiratory lungs anemia/hypogammaglobulinemia--- Currently on prednisone 50 mg PO daily Toradol 30 mg IV every 6 hours when necessary will hold NSS with potassium and give a bolus of normal saline. Continue hydroxychloroquine 200 mg by mouth twice a day. Appreciate hem/onc input My plan is to continue empiric prednisone throughout her hospital stay. Depending on response, we will formulate a rapid wean as she progresses toward discharge . Hyperkalemia Likely secondary to fluid with potassium. Concerned over possible other causes. As mentioned above, will give bolus and monitor. Order labs such as CK Depression--continue Lexapro 5 mg by mouth daily. Consideration should be made for changing the patient to Cymbalta to deal with both mood and pain. Hypertension--continue lisinopril 2.5 mg by mouth daily. IBS with diarrhea --Stop Viberzi Place on cholestyramine if develops symptoms. Hypothyroidism--continue levothyroxine sodium 75 g by mouth daily. Continued [facility] stay due to: multiple IV medications needed
[2017-04-19] MEDS ORDERED: BENZONATATE 100MG CAP PO ONE (22:45)
[2017-04-19 23:21] VITALS: BP 170/89; PULSE 58; TEMP 36.6; O2SAT 99
[2017-04-20] MEDS: SODIUM CHLORIDE 0.45% 1000ML 1,000 ML IV SCH ×3 (01:07→11:56)
[2017-04-20] MEDS: LEVOTHYROXINE 75 MCG TAB PO SCH (06:16)
[2017-04-20 06:42] LABS: BASO % 0.2 %; BASO ABS # 0.01 K/uL (0-0.2); EOS % 0.5 %; HEMATOCRIT 23.7 % (37-47); LYMPH % 19.1 %; LYMPH ABS # 0.77 K/uL (1.2-3.4); MEAN CELL VOLUME 89.8 fL (80-100); MEAN CORPUSCULAR HEMOGLOBIN 29.9 pg (25-34); MEAN CORPUSCULAR HGB CONC 33.3 g/dl (32-36); MEAN PLATELET VOLUME 11.1 fL (7.4-10.4); MONO % 8.4 %; NEUT % 70.8 %; PLATELET COUNT 152 K/uL (130-400); RED BLOOD COUNT 2.64 M/uL (4.2-5.4); WHITE BLOOD COUNT 4.04 K/uL (4.8-10.8)
[2017-04-20 07:05] VITALS: BP 181/94; PULSE 74; TEMP 36.5; O2SAT 99
[2017-04-20 07:19] LABS: COMPLETE YES; GIANT PLATELETS 1+
[2017-04-20 07:29] LABS: CALCIUM 7.8 mg/dl (8.5-10.1); CREATININE 0.98 mg/dl (0.60-1.20); MAGNESIUM 2.3 mg/dl (1.8-2.4); POTASSIUM 4.4 mmol/L (3.5-5.1)
[2017-04-20] MEDS: CEVIMELINE~ORDER AWAITING ACTION SCH (08:00)
[2017-04-20] MEDS: METOPROLOL TARTRATE 25 MG TAB PO SCH (08:09)
[2017-04-20] MEDS: RANITIDINE HCL 150 MG TAB PO SCH (08:09)
[2017-04-20] MEDS: HYDROXYCHLOROQUINE SULFATE 200 MG TAB PO SCH (08:09)
[2017-04-20] MEDS: ESCITALOPRAM OXALATE 10 MG TAB PO SCH (08:10)
--- NOTE | 2017-04-20 08:49 | HEME/ONC PROGRESS NOTE ---
DATE: 04/20/2017 DIAGNOSES: 1. Diffuse arthralgias with myalgias. 2. Malaise/fatigue. 3. Mixed cryoglobulinemia. 4. Elevated beta natriuretic peptide. 5. Abdominal bloating, pain, nausea, and vomiting. SUBJECTIVE: Chad was seen and examined today at bedside. Making slow progress; however, now she complains of hyperesthesias of her right foot that started at 06:00 a.m. Potassium continues to be significantly elevated despite Kayexalate dosing x2. Tolerating diet, ambulating ad sandrine and arthralgias are improved. Hemoglobin continues to be low. We will rule out active hemolysis. The patient is without complaint and nursing reports no overnight issues. PHYSICAL EXAMINATION: GENERAL: She is in no acute distress. VITAL SIGNS: Temperature 36.5, pulse 74, respirations 18, and blood pressure 181/94. SKIN: Without rash or lesion. HEENT: Oral mucosa without erythema or ulceration. NECK: Supple. HEART: Regular rate and rhythm. No clicks, rubs or murmurs. LUNGS: Clear to auscultation bilaterally. ABDOMEN: Soft, nontender, and nondistended. EXTREMITIES: No clubbing, cyanosis or edema. NEUROLOGIC: Grossly intact. LABORATORY DATA: WBC count 4040, hemoglobin 7.9, and platelet count 151,000. Sodium 141, potassium 4.4, chloride 113, carbon dioxide 18, creatinine 0.98, and BUN 33. IMPRESSION: 1. Hyperkalemia. 2. Arthralgias and myalgias. 3. Malaise/fatigue. 4. Abdominal pain, bloating, nausea and vomiting. 5. Hypermagnesemia. 6. Mixed cryoglobulinemia by history. PLAN: Again, Chad was seen at bedside. Clinically, seems to be making improvement. She now complains of hyperesthesias involving her right foot started this morning. As stated, her potassium was still elevated, but has since improved with today's measurement. Her hemoglobin continues to be somewhat sluggish and I want to make sure she is not hemolyzing and therefore, will order direct and indirect Ned, reticulocyte count, iron studies, B12 and folate. I am still in favor of her being discharged home. Again, I would plan on an additional dose of 50 mg of prednisone and then she may resume 40 mg for three days, 30 mg for three days, 20 mg for three days, 10 for 3 days and then discontinue. I reminded Chad to contact her corporate tax preparer as soon as she returns home. I will see her in the office in the next week or 2 post discharge. Thank you very much for assisting us in the care of this very pleasant young lady.
[2017-04-20 09:34] LABS: FERRITIN 161.6 ng/ml (8.0-388.0)
[2017-04-20] MEDS: TRAMADOL HCL 50 MG TAB PO PRN (10:45)
[2017-04-20] MEDS ORDERED: ULT50X OR (14:40)
--- NOTE | 2017-04-20 14:43 | Discharge Instructions ---
Discharge Instructions Date of Service Apr 20, 2017. Admission Reason for Admission: Mixed Cryoglobulinemia, Sjoegren Syndrome Discharge Discharge Diagnosis / Problem: diffuse arthralgias/ exacerbation of sjoegren Discharge Goals Goal(s): Decrease discomfort, Improve function Activity Recommendations Activity Limitations: resume your previous activity . Instructions / Follow-Up Instructions / Follow-Up F/U with Med Surg Rn within 1 week F/U with Hem/ Onc in 1-2 weeks F/U with PCP in 1 week Current Hospital Diet Patient's current hospital diet: Regular Diet Discharge Diet Recommended Diet: Regular Diet Pending Studies Studies pending at discharge: no Medical Emergencies . Who to Call and When: Medical Emergencies: If at any time you feel your situation is an emergency, please call 911 immediately. . Non-Emergent Contact Non-Emergency issues call your: Primary Care Provider Call Non-Emergent contact if: your pain is worsening . . "Provider Documentation" section prepared by Edward Pacheco. . Broke Handler Recommendations Broke Handler Recommendations: HEM/Oncologist: I would plan on an additional dose of 50 mg of prednisone and then she may resume 40 mg for three days, 30 mg for three days, 20 mg for three days, 10 for 3 days and then discontinue. I reminded Chad to contact her talent manager as soon as she returns home. I will see her in the office in the next week or 2 post discharge. VTE Core Measure Inpt VTE Proph given/why not?: SCD's
[2017-04-20] MEDS ORDERED: PRED10TA PO (14:47)
[2017-04-20 14:58] VITALS: BP 181/94; PULSE 74; TEMP 36.5; O2SAT 99
== END 2017-04-20 15:12 | disposition home or self-care (01) | DRG 546 ==
LOC: C.EDB 08:41 → C.MS4W 12:26 → ENRESERV 12:43 → C.MS4W 14:13
PROVIDERS: ADMIT Hospitalist; ATTEND Internal Medicine Sports Medicine
DX: M35.00 Sjogren syndrome, unspecified (principal); D80.1 Nonfamilial hypogammaglobulinemia; I50.9 Heart failure, unspecified; D89.1 Cryoglobulinemia; E87.5 Hyperkalemia; F32.9 Major depressive disorder, single episode, unspecified; I11.0 Hypertensive heart disease with heart failure; K58.9 Irritable bowel syndrome, unspecified; E03.9 Hypothyroidism, unspecified; Z79.899 Other long term (current) drug therapy

== ENCOUNTER 2017-04-24 07:39 | Inpatient (IN) | payer BC, OTHER ==
[~2017-04-24] VITALS: Ht 162.6 cm; Wt 60.2 kg
[~2017-04-24 07:39] MED LIST changes: -ELUX1TAB PO; +ELUX1TAB2 PO; +LISI-789 PO; -METO25TA56 PO; +PRED10TA PO; +ULT50X OR
[2017-04-24] MEDS ORDERED: PROMETHAZINE HCL INJ 6.25 MG in SODIUM CHLORIDE 0.9% 50ML 50 ML IV STA (07:51)
[2017-04-24] MEDS ORDERED: SODIUM CHLORIDE 0.9% 1000ML 500 ML IV STA (07:51)
[2017-04-24] MEDS ORDERED: MoRPHine SULFATE 4 MG/ML 1 ML CARP\\VIAL IV PRN ×2 (08:00→21:00)
--- NOTE | 2017-04-24 08:06 | EMERGENCY ROOM VISIT NOTE ---
History Report prepared by Sukhwinder: Winsome Vale Under the Supervision of: Dr. Long Parks M.D. First contact with patient: 07:49 Chief Complaint: CHEST PAIN Stated Complaint: CHEST/BACK PAIN AB PAIN JOINT PAIN RECTAL BLEEDING History of Present Illness The patient is a 51 year old female who presents to the Emergency Room with complaints of persistent chest pain that began several days ago. She currently rates her discomfort as a 6/10 in severity. The patient states that she was recently evaluated in the hospital and notes that she has been experiencing weight gain, shortness of breath, and a cough. She states that she has had an elevated blood pressure. The patient reports a history of CHF. She denies being on any Lasix. The patient states that she has been experiencing central chest pain that radiates into her upper back between her shoulders. She reports that she intermittently gets heartburn, but denies getting it often. The patient states that when she was last evaluated here she had epigastric abdominal discomfort, but states that nothing was checked out with her abdominal pain. She additionally notes rectal bleeding, but is unsure if it is related to a hemorrhoid. The patient states that she is here to make sure everything is okay. She reports increased swelling to her lower extremities. The patient denies any urinary symptoms. Source of History: patient Onset: several days ago Position: chest Symptom Intensity: 6/10 Timing: other (persistent) Associated Symptoms: + cough, + SOB, + abdominal pain, + back pain Note: Associated Symptoms: weight gain, rectal bleeding Review of Systems See HPI for pertinent positives & negatives. A total of 10 systems reviewed and were otherwise negative. Past Medical & Surgical Medical Problems: (1) Acute exacerbation of CHF (congestive heart failure) (2) Anemia (3) Anemia (4) Hypogammaglobulinemia (5) Mixed cryoglobulinemia (6) Sjoegren syndrome Surgical Problems: (1) H/O tubal ligation (2) History of open reduction and internal fixation (ORIF) procedure Family History Cancer Heart disease Hypertension Kidney stones Social History Smoking Status: Former Smoker Alcohol Use: occasionally Drug Use: none Marital Status: Housing Status: lives with significant other Occupation Status: employed Current/Historical Medications Scheduled Alendronate Sodium (Alendronate Sodium), 70 MG PO WK Cevimeline Hcl (Cevimeline Hcl), 30 MG PO BID Cyanocobalamin (Cyanocobalamin), 1,000 MCG INJ Mo Escitalopram Oxalate (Lexapro), 5 MG PO DAILY Hydroxychloroquine Sulfate (Plaquenil), 200 MG PO BID Levothyroxine Sodium (Synthroid), 75 MCG PO DAILY Lisinopril (Zestril), 2.5 MG PO DAILY Prednisone Tab (Prednisone), 50 MG PO DAILY Allergies Coded Allergies: Sulfamethoxazole w/Trimethoprim (Verified Allergy, Intermediate, rash, ) Physical Exam Vital Signs Date Time Temp Pulse Resp B/P (MAP) Pulse Ox O2 Delivery O2 Flow Rate FiO2 04/24/17 10:15 82 20 164/109 98 Room Air 04/24/17 09:31 80 16 158/105 99 Room Air 04/24/17 09:11 105 18 183/116 98 Room Air 04/24/17 08:55 92 14 177/114 100 Room Air 04/24/17 08:52 100 Room Air 04/24/17 08:43 91 04/24/17 08:42 93 16 180/106 99 Room Air 04/24/17 07:45 36.8 100 20 188/104 99 Room Air Physical Exam GENERAL: Patient is in no acute distress, dry cough noted. HEENT: No acute trauma, normocephalic atraumatic, mucous membranes moist, no nasal congestion, no scleral icterus. NECK: No stridor, no adenopathy, no meningismus, trachea is midline. LUNGS: Clear to auscultation bilaterally, no wheeze, no rhonchi, breath sounds equal. HEART: Without murmurs gallops or rubs, regular rate and rhythm. ABDOMEN: Soft, tender in the epigastrium, bowel sounds positive, no hernias, no peritonitis. RECTAL: Hemorrhoids present, evidence for recent bleeding from a hemorrhoid at the 6 o'clock position. EXTREMITIES: No cyanosis, mild bilateral pedal edema, full range of motion of all the joints without pain or difficulty, no signs for acute trauma. NEUROLOGIC: Oriented x 3, no acute motor or sensory deficits, no focal weakness. SKIN: No rash, no jaundice, no diaphoresis. Medical Decision & Procedures ER Provider Diagnostic Interpretation: X-ray results as stated below per interpretation by me and the radiologist: CHEST ONE VIEW PORTABLE CLINICAL HISTORY: Chest pain. COMPARISON STUDY: Chest radiograph April 17, 2017. FINDINGS: There is no pneumothorax. Small right and trace left pleural effusions have increased since prior exam. There is pleural vascular congestion. Mild bibasilar opacities are noted. Cardiomediastinal silhouette is normal. IMPRESSION: 1. Small right and trace left pleural effusions which have increased since prior exam. Associated bibasilar opacities favor atelectasis. 2. Pulmonary vascular congestion. Electronically signed by: Gautam Corado M.D. 04/24/2017 8:33 AM Dictated Date/Time: 04/24/2017 8:32 AM Laboratory Results 04/24/17 08:13 04/24/17 08:13 Test 04/24/17 08:13 04/24/17 08:15 04/24/17 09:33 Red Blood Count 3.07 M/uL (4.2-5.4) Mean Corpuscular Volume 88.9 fL (80-100) Mean Corpuscular Hemoglobin 29.6 pg (25-34) Mean Corpuscular Hemoglobin Concent 33.3 g/dl (32-36) RDW Standard Deviation 44.7 fL (36.4-46.3) RDW Coefficient of Variation 13.9 % (11.5-14.5) Mean Platelet Volume 11.3 fL (7.4-10.4) Anion Gap 9.0 mmol/L (3-11) Est Creatinine Clear Calc Drug Dose 68.4 ml/min Estimated GFR () 91.9 Estimated GFR (Non- 79.3 BUN/Creatinine Ratio 31.2 (10-20) Calcium Level 9.3 mg/dl (8.5-10.1) Magnesium Level 2.3 mg/dl (1.8-2.4) Total Bilirubin 0.7 mg/dl (0.2-1) Aspartate Amino Transf (AST/SGOT) 35 U/L (15-37) Alanine Aminotransferase (ALT/SGPT) 35 U/L (12-78) Alkaline Phosphatase 132 U/L (45-117) Troponin I 0.054 ng/ml (0-0.045) Pro-B-Type Natriuretic Peptide > 71892 pg/ml (0-450) Total Protein 5.5 gm/dl (6.4-8.2) Albumin 3.0 gm/dl (3.4-5.0) Globulin 2.5 gm/dl (2.5-4.0) Albumin/Globulin Ratio 1.2 (0.9-2) Lipase 186 U/L (73-393) Thyroid Stimulating Hormone (TSH) 7.840 uIu/ml (0.300-4.500) Free Thyroxine 1.10 ng/dl (0.80-1.60) Urine Color YELLOW Urine Appearance CLEAR (CLEAR) Urine pH 5.5 (4.5-7.5) Urine Specific [place] 1.026 (1.000-1.030) Urine Protein 4+ (NEG) Urine Glucose (UA) NEG (NEG) Urine Ketones NEG (NEG) Urine Occult Blood 3+ (NEG) Urine Nitrite NEG (NEG) Urine Bilirubin NEG (NEG) Urine Urobilinogen NEG (NEG) Urine Leukocyte Esterase TRACE (NEG) Urine WBC (Auto) 10-30 /hpf (0-5) Urine RBC (Auto) >30 /hpf (0-4) Urine Hyaline Casts (Auto) 10-30 /lpf (0-5) Urine Epithelial Cells (Auto) >30 /lpf (0-5) Urine Bacteria (Auto) NEG (NEG) Urine Renal Epithelial Cells /lpf (0-5) Prothrombin Time 10.1 SECONDS (9.0-12.0) Prothromb Time International Ratio 0.9 (0.9-1.1) Activated Partial Thromboplast Time 20.1 SECONDS (21.0-31.0) Partial Thromboplastin Ratio 0.8 Laboratory results reviewed by me. Medications Administered Medications (Trade) Dose Ordered Sig/Selena Route Start Time Stop Time Status Last Admin Dose Admin Sodium Chloride 500 ml @ 999 mls/hr Q31M STAT IV 04/24/17 07:51 04/24/17 08:21 DC 04/24/17 07:51 999 MLS/HR Morphine Sulfate (MoRPHine SULFATE INJ) 4 mg Q15M PRN IV 04/24/17 08:00 05/08/17 07:59 04/24/17 08:45 4 MG Promethazine HCl 6.25 mg/Sodium Chloride 50.25 ml @ 204 mls/hr NOW STAT IV 04/24/17 07:51 04/24/17 08:05 DC 04/24/17 08:38 204 MLS/HR Bumetanide (Bumex IV) 1 mg NOW STAT IV 04/24/17 08:50 04/24/17 08:51 DC 04/24/17 09:12 1 MG Labetalol HCl (Normodyne IV) 20 mg NOW STAT IV 04/24/17 09:16 04/24/17 09:17 DC 04/24/17 09:24 20 MG ECG Indication: chest pain Rate (beats per minute): 98 Rhythm: normal sinus Findings: no acute ischemic change, no ectopy ED Course 0751: The patient was evaluated in room B2. A complete history and physical exam was performed. Ordered Promethazine HCl 6.25 mg/Sodium Chloride 50.25 ml @ 204 mls/hr IV, Sodium Chloride 500 ml @ 999 mls/hr IV. 0800: Ordered Morphine Sulfate 4 mg IV. 0850: Ordered Bumex IV 1 mg IV. 0914: I reevaluated the patient and she is resting comfortably. I discussed the exam findings with her and I discussed the treatment plan. She verbalized complete understanding and agreement. She is going to be evaluated for further treatment. 0916: Ordered Labetalol HCl 20 mg IV. 0918: I discussed the patient's case with Dr. Pierre [facility]. He is going to evaluate the patient for further treatment. Medical Decision The patient is a 51 year old female who presents to the ED with complaints of chest pain. Differential diagnoses considered include pancreatitis, gastritis, cardiac ischemia, anemia, electrolyte imbalance, DC, dysrhythmia, CHF. There is a moderate leukocytosis, this could be consistent with infection or her steroid use. She is anemic but this is baseline looking back at previous testing. No significant electrolyte abnormality or kidney failure. No evidence for hepatitis or pancreatitis. EKG shows a normal sinus rhythm, no acute ischemia. Cardiac enzyme testing times one does show a troponin elevation , this could be consistent with cardiac strain or injury. Chest x-ray shows some CHF, no mediastinal widening, pneumonia or pneumothorax. BNP is quite elevated consistent with fluid overload. There is no coagulopathy. Urinalysis shows primarily contamination. The patient received IV morphine, IV Phenergan. She was given IV labetalol because of the higher blood pressure, she received IV Bumex to help with diuresis. The patient is feeling improved. Given her findings, admission/observation is warranted. Further cardiac and pulmonary workups are required. I spoke with the patient and case management. The on-call hospitalist was consulted. Medication Reconcilliation Current Medication List: was personally reviewed by me Consults Time Called: 916 Consulting Physician: KIRIT Jauregui Returned Call: [phone] I discussed the patient's case with KIRIT Jauregui. He is going to evaluate the patient for further treatment. Impression Primary Impression: Precordial chest pain Additional Impressions: Elevated troponin Fluid overload Hypertension Scribe Attestation The scribe's documentation has been prepared under my direction and personally reviewed by me in its entirety. I confirm that the note above accurately reflects all work, treatment, procedures, and medical decision making performed by me. Departure Information Dispostion Being Evaluated By Hospitalist Referrals Edward Bae M.D. (PCP) Problem Qualifiers
[2017-04-24 08:28] LABS: HEMATOCRIT 27.3 % (37-47); MEAN CELL VOLUME 88.9 fL (80-100); MEAN CORPUSCULAR HEMOGLOBIN 29.6 pg (25-34); MEAN CORPUSCULAR HGB CONC 33.3 g/dl (32-36); MEAN PLATELET VOLUME 11.3 fL (7.4-10.4); PLATELET COUNT 143 K/uL (130-400); RED BLOOD COUNT 3.07 M/uL (4.2-5.4)
--- NOTE | 2017-04-24 08:35 | DIAGNOSTIC IMAGING REPORT ---
CHEST ONE VIEW PORTABLE CLINICAL HISTORY: Chest pain. COMPARISON STUDY: Chest radiograph April 17, 2017. FINDINGS: There is no pneumothorax. Small right and trace left pleural effusions have increased since prior exam. There is pleural vascular congestion. Mild bibasilar opacities are noted. Cardiomediastinal silhouette is normal. IMPRESSION: 1. Small right and trace left pleural effusions which have increased since prior exam. Associated bibasilar opacities favor atelectasis. 2. Pulmonary vascular congestion. Electronically signed by: Gautam Corado M.D. 04/24/2017 8:33 AM Dictated Date/Time: 04/24/2017 8:32 AM
[2017-04-24 08:47] LABS: ALT/SGPT 35 U/L (12-78); BLOOD UREA NITROGEN 27 mg/dl (7-18); BUN/CREATININE RATIO 31.2 (10-20); CALCIUM 9.3 mg/dl (8.5-10.1); CARBON DIOXIDE 20 mmol/L (21-32); CHLORIDE 115 mmol/L (98-107); CREATININE 0.86 mg/dl (0.60-1.20); GLUCOSE 89 mg/dl (70-99); MAGNESIUM 2.3 mg/dl (1.8-2.4); POTASSIUM 3.6 mmol/L (3.5-5.1); SODIUM 144 mmol/L (136-145)
[2017-04-24] MEDS ORDERED: BUMETANIDE SOLN 1 MG/4 ML VIAL IV STA (08:50)
[2017-04-24 08:57] LABS: URINE APPEARANCE CLEAR (CLEAR); URINE BILIRUBIN NEG (NEG); URINE COLOR YELLOW; URINE EPITHELIAL CELL AUTO >30 /lpf (0-5); URINE NITRITE NEG (NEG); URINE PH 5.5 (4.5-7.5); URINE SPECIFIC GRAVITY 1.026 (1.000-1.030); UROBILINOGEN NEG (NEG)
[2017-04-24 09:07] LABS: MANUAL MICROSCOPIC REQUIRED? NO; REVIEW REQ? YES
[2017-04-24 09:10] LABS: ALB/GLOB RATIO 1.2 (0.9-2); ALKALINE PHOSPHATASE 132 U/L (45-117); AST/SGOT 35 U/L (15-37)
[2017-04-24] MEDS ORDERED: LABETALOL HCL IV 5 MG/ML 20ML IV STA (09:16)
[2017-04-24 09:51] LABS: INR 0.9 (0.9-1.1); PARTIAL THROMBOPLASTIN RATIO 0.8; PROTHROMBIN TIME (PATIENT) 10.1 SECONDS (9.0-12.0)
[2017-04-24] MEDS ORDERED: IV FLUIDS COMPLETED PRN (10:00)
[2017-04-24] MEDS ORDERED: ONDANSETRON INJ 2 MG/ML 2 ML VIAL IV PRN (10:30)
[2017-04-24] MEDS ORDERED: ALUMINUM/MAGNESIUM/SIMETH (MAALOX MAX) 30 ML UDC PO PRN (10:30)
[2017-04-24 10:35] VITALS: BP 160/84; PULSE 95; TEMP 36.5; O2SAT 95; Ht 162.6 cm; Wt 60.2 kg
--- NOTE | 2017-04-24 10:40 | History and Physical ---
History & Physical Date of Service Apr 24, 2017. History & Physical obs #[id number]
[2017-04-24] MEDS ORDERED: BUMETANIDE 1 MG TAB PO ONE (11:30)
[2017-04-24] MEDS: METHYLPREDNISOLONE IV 60 MG in SYRINGE 0 ML IV SCH ×2 (11:38→17:52)
--- NOTE | 2017-04-24 11:41 | HISTORY & PHYSICAL EXAMINATION ---
DATE OF ADMISSION: 04/24/2017 CHIEF COMPLAINT: She has multiple chief complaints actually, chest pressure and shortness of breath, headache and body aches all over. HISTORY OF PRESENT ILLNESS: The patient is a very pleasant 51-year-old female who was actually just here April 17 through the with what appeared to be a flareup of her autoimmune diseases. She was treated with prednisone, was seen by her primary care and hematology/oncology improved, felt good enough to go home, was stable for discharge and then went home. She notes that unfortunately while she was feeling better at the time of discharge really about the next day she started again with diffuse body aches, hurting all over with joint muscle pain that is characteristic of her autoimmune disease and then maybe started with more of a headache and neck pain over the last few days, some nausea and some photophobia. She notes it is a little bit different than the typical headache she gets 2-3 times a month; however, it is a headache that she does frequently see just more in an erratic pattern she relates to elevations in her blood pressure, although causation has not been clearly defined. It is not the worst headache of her life, it is bitemporal fairly intense headache though. She also notes as a new symptom she had chest pressure that awoke her from a sleep at about 3 a.m. along with some shortness of breath. She notes that it persisted until she came to the ER where somewhere between morphine and Bumex she started to feel better and the pressure and shortness of breath are now gone. She notes probably about a 20 pound weight gain, it is difficult to gauge time frame. She definitely relates to being since her prior admission with some lower extremity edema as well. She has a dry nonproductive cough that dates back about 2 weeks relating it is to sick grandkids bringing things home and lastly she incidentally notes rectal bleeding, although she believes is hemorrhoidal, just had a colonoscopy last year that showed hemorrhoids and nothing else. REVIEW OF SYSTEMS: Negative except for as above, except also positive for vague abdominal fullness. Per review of systems is otherwise entirely negative except for as above. PAST MEDICAL HISTORY: Includes cryoglobulinemia, Sjogren syndrome, anemia, B12 deficiency, questionable history of CHF, although she notes that she has seen cardiology, it was about a year ago and they told her things looked good. She has some degree of renal illness related to her cryoglobulinemia, although terms like nephrotic syndrome are not familiar to her. PAST SURGICAL HISTORY: Includes a tubal ligation and an ORIF. FAMILY HISTORY: Includes cancer, heart disease, hypertension, and kidney stones. SOCIAL HISTORY: She is not a current smoker. She has supportive family. She has adult children as well as grandchildren and her mother is present with her as well. MEDICATIONS: Include prednisone taper, alendronate, Evoxac, B12 IM monthly, Lexapro, Plaquenil, Synthroid and lisinopril. She also notes that she periodically gets Rituxan from her molasses coloring operator. PHYSICAL EXAMINATION: VITAL SIGNS: Initial vitals showed a temp 36.8, pulse 100, respiratory rate 20, blood pressure 188/104, 99% on room air. GENERAL: She is awake, alert, oriented x3, pleasant, fatigued appearing, but otherwise in no acute distress. HEAD, EYES, EARS, NOSE, AND THROAT: Normocephalic, atraumatic. Mucous membranes are moist. CARDIOVASCULAR: Regular. No rubs, murmurs, or gallops. LUNGS: Show diminished air entry bibasilar with faint rales in the mid lungs, upper lungs are clear. No respiratory distress. No accessory muscle use. ABDOMEN: Soft, maybe mildly distended, nontender. No masses or organomegaly. EXTREMITIES: Without cyanosis or clubbing. She has tense shiny skin with about 1+ pitting edema bilaterally. No erythema, no calf tenderness. No cords. She notes this is new. NEUROLOGIC EXAMINATION: Shows cranial nerves II-XII to be grossly intact. Gross motor and sensory are intact. MUSCULOSKELETAL/OSTEOPATHIC STRUCTURAL EXAMINATION: Shows most notably her left greater than right suboccipital muscle region to be extremely high tone, very tender with decreased range of motion. Inhibitory pressure was done bilaterally. The patient tolerated well and there was good soft tissue texture changes. MENTAL STATE: Shows good recent and remote recall. Normal mood and affect. Good judgment and insight. LABORATORY DATA AND DIAGNOSTICS: CBC shows a white count of 14, hemoglobin 9.1 which appears to be in the range of her baseline, an MCV of 88.9, platelets 143. Complete metabolic panel with sodium 144, potassium 3.6, chloride 115, CO2 20, BUN 27, creatinine 0.86, calcium 9.3, glucose 89, mag 2.3, total bili 0.7 with an AST of 35, ALT 35, alkaline phosphatase 132. Troponin 0.054. BNP of greater than 35,000. Total protein 5.5 with an albumin of 3. TSH 7.840, free T4 of 1.1, lipase 186. PT 10.1, PTT 20.1. Urinalysis is yellow, clear. Specific gravity 1.026, 3+ blood, greater than 30 epithelial cells, greater than 30 red cells, 10-30 white cells, trace leukocyte esterase, 10-30 hyaline casts. Her EKG shows no acute ischemic changes. Chest x-ray shows a mild degree of pulmonary vascular congestion. Radiology also sees small right and trace left pleural effusions. ASSESSMENT AND PLAN: 1. Chest pressure and shortness of breath. This appears to be due to fluid retention. I hesitate to label her with CHF at this point, because she does not appear to have a true CHF related cardiomyopathy and yet at the same time it is not clear that it is a renally driven anasarca given that she does not clearly have nephrotic syndrome by her history, although she does have 4+ protein on her urine, so it is more likely to relate to that than anything cardiac. Will start her treatment on telemetry, continue Bumex, check an echocardiogram, follow her creatinine and have outpatient nephrology follow up in regards to this possible nephrotic syndrome. Fortunately is not hypoxic and not in any severe distress. 2. Elevated troponin. I strongly suspect this is all myocardial wall stretch and strain given her markedly elevated BNP, given the fact that she has potentially 20 pounds of fluid retention; however, certainly with her autoimmune disease, coronary disease is something necessary to exclude. At this point her EKGs are nonacute and her symptoms resolved simply with diuresis and medical management that would be directed towards the pulmonary edema. Will continue treating this. Will trend her troponins. I discussed with her for completeness sake at some point in the near future stress echo would be reasonable and warranted; however unless her troponins rise or her symptoms change it does not appear to need to be done urgently and certainly in that respect, it would make more sense to improve her autoimmune symptoms before putting her on a treadmill. I do suspect that steroids having a degree of an unintended mineralocorticoid affect or probably at least a moderate player in her fluid retention acutely, however given that her autoimmune diseases appear to be the central theme of what is making her sick I fear that this narrow point in time it is inevitable to need to treat the autoimmune diseases with steroids and simply manage the fluid retention there causing. 3. Possible nephrotic syndrome, ongoing outpatient nephrology followup. She does have 4+ protein in her urine. 4. Headache and neck pain. This appears to be predominantly a musculoskeletal tension headache, although it does have a degree of migrainous features. Will treat as such. She shows no neurologic deficits, not the worst headache of her life. There is no clear indication to need to image her further at this time. 5. Somatic dysfunction cervical region. Gentle soft tissue directed OMT was done as above. We will also follow this with Voltaren gel q.i.d. to the suboccipitals. 6. Diffuse myalgias. This appears to relate to her autoimmune diseases flaring up. Unfortunately, she is still on 30 or 40 of prednisone with this flaring and I strongly suspect her autoimmune disease flare as the central theme of what is making her feel bad all over. For now, we will increase the steroids but more importantly she is set to see her molasses coloring operator in exactly a week and I suspect she needs escalated treatment for her autoimmune disease as it relates to all of this. 7. Cryoglobulinemia and Sjogren syndrome as above noted. I strongly suspect that flares of her autoimmune complexes are the central thing that is making her sick right now. For now increased dose of steroids, but more importantly close rheumatology followup. 8. Anemia. This appears to be stable. 9. Rectal bleeding. Exam consistent with hemorrhoids to the ER physician. She had a colonoscopy just last year without any polyps or other worrisome pathology. At this point in time there is no need to repeat, simply follow. 10. Hematuria. Either false positive because of the fact that there are significant amounts of epithelial cells or possibly related to her cryoglobulinemia. Ongoing close outpatient followup unless her situation changes. 11. Cough. The main differential for this appears to be fluid mediated from the pulmonary edema versus viral mediated versus lisinopril mediated. Will treat the fluid first. If that does not change the cough then would want to see how she looks with a few weeks being free from any disease vectors and then if she is clearly not viral and the fluid is gone then would need to consider changing her MILES over to an ARB. 12. Deep venous thrombosis prophylaxis, ambulation.
[2017-04-24 11:50] VITALS: BP 158/88; PULSE 80
--- NOTE | 2017-04-24 13:20 | ECHOCARDIOGRAM REPORT ---
*NOTICE TO RECEIVING [employer]Y This information is strictly Confidential and protected under [place] law. [place] law prohibits you from making any further disclosure of this information unless further disclosure is expressly permitted by the written consent of the person to whom it pertains or is authorized by law. A general authorization for the release of medical or other information is not sufficient for this purpose. Hospital accepts no responsibility if the information is made available to any other person, INCLUDING THE PATIENT. Interpretation Summary * Name: ANIA ROBLES Study Date: 04/24/2017 12:11 PM BP: 158/88 mmHg * Patient Location: [facility] HR: 80 * : 1965 (M/d/yyyy) Gender: Female Height: 64 in * Age: 51 yrs Ethnicity: [place] Weight: 277 lb * Ordering Physician: Mj Seaman * Referring Physician: MARY * Performed By: Winsome Faye RDCS * * Reason For Study: CHF * BSA: 2.2 m2 * -- Conclusions -- * Left ventricular systolic function is normal. * No regional wall motion abnormalities noted. * Ejection Fraction = 55-60%. * No significant valvular pathology. * Grade I diastolic dysfunction, (abnormal relaxation pattern). Procedure Details * A complete two-dimensional transthoracic echocardiogram was performed (2D, M-mode, Doppler and color flow Doppler). Left Ventricle * The left ventricle is normal in size. * There is normal left ventricular wall thickness. * Ejection Fraction = 55-60%. * Left ventricular systolic function is normal. * No regional wall motion abnormalities noted. Right Ventricle * The right ventricle is normal size. * The right ventricular systolic function is normal as assessed by tricuspid annular plane systolic excursion (TAPSE) (normal >1.5 cm). Atria * The left atrial size is normal. * Right atrial size is normal. * No ASD detected; PFO is not assessed. Mitral Valve * The mitral valve is normal in structure and function. * There is no mitral valve stenosis. * There is trace mitral regurgitation. Tricuspid Valve * The tricuspid valve anatomy is normal. * There is no tricuspid stenosis. * There is trace tricuspid regurgitation. Aortic Valve * The aortic valve is normal in structure and function. * No hemodynamically significant valvular aortic stenosis. * No aortic regurgitation is present. Pulmonic Valve * The pulmonary valve is not well seen, but the Doppler examination is normal without significant regurgitation or stenosis. Great Vessels * The aortic root and proximal ascending aorta are normal sized. * The pulmonary artery is not well visualized, but is probably normal size. Pericardium/Pleural * There is no pericardial effusion. Great Vessels * Normal inferior vena cava size and collapsability with sniff indicates a normal right atrial pressure of 3 mmHg Left Ventricular Diastolic Function * Grade I diastolic dysfunction, (abnormal relaxation pattern). MMode 2D Measurements and Calculations IVSd 0.73 cm IVSs 1.0 cm LVIDd 4.4 cm LVIDs 3.1 cm LVPWd 1.1 cm LVPWs 1.4 cm IVS/LVPW 0.66 FS 31.1 % EDV(Teich) 89.0 ml ESV(Teich) 36.5 ml EF(Teich) 59.0 % EDV(cubed) 86.9 ml ESV(cubed) 28.5 ml EF(cubed) 67.2 % % IVS thick 39.0 % % LVPW thick 23.3 % LV mass(C)d 132.8 grams LV mass(C)dI 59.1 grams/m\S\2 LV mass(C)s 110.2 grams LV mass(C)sI 49.1 grams/m\S\2 SV(Teich) 52.5 ml SI(Teich) 23.4 ml/m\S\2 SV(cubed) 58.4 ml SI(cubed) 26.0 ml/m\S\2 Ao root diam 2.7 cm Ao root area 5.5 cm\S\2 LA dimension 3.6 cm LA/Ao 1.4 LVAd ap4 27.7 cm\S\2 LVLd ap4 7.8 cm EDV(MOD-sp4) 82.7 ml EDV(sp4-el) 83.0 ml LVAs ap4 16.1 cm\S\2 LVLs ap4 6.2 cm ESV(MOD-sp4) 37.0 ml ESV(sp4-el) 35.6 ml EF(MOD-sp4) 55.2 % EF(sp4-el) 57.1 % LVAd ap2 25.9 cm\S\2 LVLd ap2 8.2 cm EDV(MOD-sp2) 65.7 ml EDV(sp2-el) 68.8 ml LVAs ap2 15.0 cm\S\2 LVLs ap2 6.4 cm ESV(MOD-sp2) 29.5 ml ESV(sp2-el) 30.0 ml EF(MOD-sp2) 55.0 % EF(sp2-el) 56.4 % LVLd %diff 5.1 % EDV(MOD-bp) 75.0 ml LVLs %diff 2.6 % ESV(MOD-bp) 33.4 ml EF(MOD-bp) 55.5 % SV(MOD-sp4) 45.7 ml SI(MOD-sp4) 20.3 ml/m\S\2 SV(MOD-sp2) 36.1 ml SI(MOD-sp2) 16.1 ml/m\S\2 SV(MOD-bp) 41.6 ml SI(MOD-bp) 18.5 ml/m\S\2 SV(sp4-el) 47.4 ml SI(sp4-el) 21.1 ml/m\S\2 SV(sp2-el) 38.8 ml SI(sp2-el) 17.3 ml/m\S\2 Doppler Measurements and Calculations MV E max brooke 98.5 cm/sec MV A max brooke 127.9 cm/sec MV E/A 0.77 MV dec time 0.17 sec Ao V2 max 168.9 cm/sec Ao max PG 11.4 mmHg Ao max PG (full) 5.2 mmHg LV V1 max PG 6.2 mmHg LV V1 max 124.3 cm/sec
[2017-04-24] MEDS: DICLOFENAC SOD 1% GEL 100 GM TUBE EXT SCH ×3 (14:57→21:00)
[2017-04-24 15:25] VITALS: BP 160/87; PULSE 76; TEMP 36.8; O2SAT 93
[2017-04-24 16:00] VITALS: O2SAT 93
[2017-04-24] MEDS: TRAMADOL HCL 50 MG TAB PO PRN (16:04)
[2017-04-24] MEDS: BUMETANIDE 1 MG TAB PO SCH (17:52)
[2017-04-24 19:45] VITALS: BP 148/80; PULSE 78; TEMP 36.9; O2SAT 94
[2017-04-24] MEDS: HYDROXYCHLOROQUINE SULFATE 200 MG TAB PO SCH (21:25)
[2017-04-24 23:40] VITALS: BP 145/85; PULSE 68; TEMP 36.6; O2SAT 95
[2017-04-25] VITALS (9 sets, daily range): BP systolic 118–180; BP diastolic 67–102; PULSE 70–85; TEMP 36.6–36.9; O2SAT 93–99
[2017-04-25] MEDS: METHYLPREDNISOLONE IV 60 MG in SYRINGE 0 ML IV SCH ×4 (00:04→18:01)
[2017-04-25] MEDS: LEVOTHYROXINE 75 MCG TAB PO SCH (06:17)
[2017-04-25] MEDS: LISINOPRIL 2.5 MG TAB PO SCH (07:11)
[2017-04-25 07:25] LABS: BUN/CREATININE RATIO 34.3 (10-20); CALCIUM 8.4 mg/dl (8.5-10.1); CREATININE 0.97 mg/dl (0.60-1.20); POTASSIUM 5.8 mmol/L (3.5-5.1)
[2017-04-25] MEDS: DICLOFENAC SOD 1% GEL 100 GM TUBE EXT SCH ×4 (07:36→20:17)
[2017-04-25] MEDS: ESCITALOPRAM OXALATE 10 MG TAB PO SCH (07:54)
[2017-04-25] MEDS: ASPIRIN 81 MG ECTAB PO SCH (07:55)
[2017-04-25] MEDS: HYDROXYCHLOROQUINE SULFATE 200 MG TAB PO SCH ×2 (07:55→20:18)
[2017-04-25] MEDS: BUMETANIDE 1 MG TAB PO SCH (07:55)
[2017-04-25 12:56] LABS: BUN/CREATININE RATIO 25.6 (10-20); CREATININE 1.31 mg/dl (0.60-1.20); POTASSIUM 4.6 mmol/L (3.5-5.1)
--- NOTE | 2017-04-25 13:22 | Progress Note ---
Subjective Date of Service: Apr 25, 2017. Subjective Pt evaluation today including: conversation w/ patient, physical exam, chart review, lab review, review of inpatient medication list feeling a little better but not great yet - still feels like she has a lot of fluid still to come off. breathing better at rest and no further chest pressure but still has SOLANO neck pain and diffuse myalgias seem to be getting better still fairly bad though was on the phone w rheumatology office (joshua quinones) in regards to her current sx and whether or not they could just proceed w rituxin Problem List Medical Problems: (1) Acute renal failure Status: Acute (2) CHF (congestive heart failure) Status: Acute (3) Dehydration Status: Acute (4) Edema Status: Acute (5) Elevated troponin Status: Acute (6) Fluid overload Status: Acute (7) Hypertension Status: Acute (8) Myositis Status: Acute (9) Precordial chest pain Status: Acute (10) Pulmonary edema Status: Acute (11) Pulmonary edema Status: Acute (12) Sjogrens syndrome Status: Acute (13) UTI (urinary tract infection) Status: Acute (14) Viral upper respiratory illness Status: Acute (15) Vomiting and diarrhea Status: Acute Review of Systems all other ROS otherwise negative except for as above Objective Vital Signs Date Time Temp Pulse Resp B/P (MAP) Pulse Ox O2 Delivery O2 Flow Rate FiO2 04/25/17 11:18 36.8 78 18 159/91 (113) 96 04/25/17 08:40 80 137/80 (99) 04/25/17 08:00 Room Air 04/25/17 07:34 36.7 71 20 180/98 (125) 99 04/25/17 04:10 36.6 70 18 118/67 (84) 93 Room Air 04/25/17 04:00 Room Air 04/25/17 00:00 Room Air 04/24/17 23:40 36.6 68 18 145/85 (105) 95 Room Air 04/24/17 20:00 Room Air 04/24/17 19:45 36.9 78 20 148/80 (102) 94 Room Air 04/24/17 16:00 93 Room Air 04/24/17 15:25 36.8 76 18 160/87 (111) 93 Room Air Physical Exam General Appearance: no apparent distress Eyes: EOMI ENT: hearing grossly normal Neck: trachea midline Respiratory/Chest: no respiratory distress, no accessory muscle use, + rales ( faint basilar rales) Extremities: normal range of motion, + pedal edema (ongoing tense skin ~1+ edema but is slightly better than yesterday) 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, alert, normal mood/affect Skin: normal color, warm/dry Laboratory Results Last 24 Hours Test 04/24/17 16:26 04/25/17 06:06 04/25/17 12:07 Troponin I 0.048 ng/ml < 0.015 ng/ml Sodium Level 143 mmol/L 143 mmol/L Potassium Level 5.8 mmol/L 4.6 mmol/L Chloride Level 115 mmol/L 114 mmol/L Carbon Dioxide Level 22 mmol/L 22 mmol/L Anion Gap 6.0 mmol/L 8.0 mmol/L Blood Urea Nitrogen 33 mg/dl 34 mg/dl Creatinine 0.97 mg/dl 1.31 mg/dl Est Creatinine Clear Calc Drug Dose 60.6 ml/min 44.9 ml/min Estimated GFR () 79.5 55.3 Estimated GFR (Non- 68.6 47.7 BUN/Creatinine Ratio 34.3 25.6 Random Glucose 115 mg/dl 97 mg/dl Calcium Level 8.4 mg/dl 9.0 mg/dl Assessment and Plan 1. Chest pressure and shortness of breath. -after further review appears to be an acute diastolic CHF exacerbation, likely brought on more than anything by steroid mediated fluid retention -improving w diuresis, but with creatinine rising, will hold for now on further diuretic and allow fluid to mobilize w previous diuretics//activity -difficult balance given that steroids probably did cause fluid retention, but that autoimmune flare is likely the "central theme" driving her acute illness overall - for now cautiously continuing with steroids, see below otherwise 2. Elevated troponin. I strongly suspect this is all myocardial wall stretch and strain given her markedly elevated BNP, further corroborated by her echo without RWMA but (+) for a degree of diastolic dysfunction -d/w pt does seem most appropriate to proceed w stress testing as outpt - she agrees, asked florist supplies salesperson to set this up 3. Possible nephrotic syndrome, ongoing outpatient nephrology followup - it is possible that her autoimmune flare up has worsened this leading to some of her fluid retention beyond that which would fit with her diastolic CHF -- and this would also fit w why her creatinine walker w only a moderate degree of diuresis -follows actively w nephrology as outpt - so as long as no significant worsening in renal function - would be most appropriate for outpt f/u -if this is truly at play, it may complicate the management of her edema to a degree 4. Headache and neck pain. This appears to be predominantly a musculoskeletal tension headache -OMT yesterday, voltaren gel 5. Somatic dysfunction cervical region. fit w headache/neck pain - OMT yesterday, ongoing voltaren gel 6. Diffuse myalgias. This appears to relate to her autoimmune diseases flaring up. IV steroids --> transition back to PO by tomorrow 7. Cryoglobulinemia and Sjogren syndrome as above noted. I strongly suspect that flares of her autoimmune complexes are the central thing that is making her sick right now. For now increased dose of steroids, but more importantly close rheumatology followup. anticipate higher level treatment there 8. Anemia. This appears to be stable. 9. Rectal bleeding. Exam consistent with hemorrhoids to the ER physician. She had a colonoscopy just last year without any polyps or other worrisome pathology. At this point in time there is no need to repeat, simply follow. 10. Hematuria. Either false positive because of the fact that there are significant amounts of epithelial cells or possibly related to her cryoglobulinemia. Ongoing close outpatient followup unless her situation changes. 11. Cough. The main differential for this appears to be fluid mediated from the pulmonary edema versus viral mediated versus lisinopril mediated. hasn't improved w diuresis - making it more likely to be viral or (less likely but possible) lisinopril related 12. Deep venous thrombosis prophylaxis, ambulation. 13. hyperkalemia - suspect was spurious - recheck OK 14. elevated creatinine - probably relates to diuresis - see above otherwise
[2017-04-25] MEDS: MAGNESIUM HYDROXIDE SUSP 30 ML UDC PO PRN (20:16)
[2017-04-25] MEDS ORDERED: NURSING VERBAL MED ORDER ONE (21:30)
[2017-04-25] MEDS ORDERED: HydrALAZINE HCL 20 MG/ML VIAL IV. STA (21:31)
[2017-04-26] VITALS (10 sets, daily range): BP systolic 138–190; BP diastolic 83–110; PULSE 72–90; TEMP 36.4–36.7; O2SAT 96–100
[2017-04-26] MEDS: ACETAMINOPHEN 325 MG TAB PO PRN ×2 (06:23→19:30)
[2017-04-26] MEDS: LEVOTHYROXINE 75 MCG TAB PO SCH (06:24)
[2017-04-26 06:42] LABS: BUN/CREATININE RATIO 37.6 (10-20); CALCIUM 8.9 mg/dl (8.5-10.1); CREATININE 1.05 mg/dl (0.60-1.20); POTASSIUM 5.1 mmol/L (3.5-5.1)
[2017-04-26] MEDS: DICLOFENAC SOD 1% GEL 100 GM TUBE EXT SCH ×4 (08:58→18:59)
[2017-04-26] MEDS: ASPIRIN 81 MG ECTAB PO SCH (09:10)
[2017-04-26] MEDS: HYDROXYCHLOROQUINE SULFATE 200 MG TAB PO SCH ×2 (09:11→19:28)
[2017-04-26] MEDS: ESCITALOPRAM OXALATE 10 MG TAB PO SCH (09:13)
[2017-04-26] MEDS: LISINOPRIL 2.5 MG TAB PO SCH (09:13)
[2017-04-26] MEDS: MAGNESIUM HYDROXIDE SUSP 30 ML UDC PO PRN (09:17)
--- NOTE | 2017-04-26 17:31 | Progress Note ---
Subjective Date of Service: Apr 26, 2017. Subjective Pt evaluation today including: conversation w/ patient, physical exam, chart review, lab review, review of inpatient medication list Problem List Medical Problems: (1) Acute renal failure Status: Acute (2) CHF (congestive heart failure) Status: Acute (3) Dehydration Status: Acute (4) Edema Status: Acute (5) Elevated troponin Status: Acute (6) Fluid overload Status: Acute (7) Hypertension Status: Acute (8) Myositis Status: Acute (9) Precordial chest pain Status: Acute (10) Pulmonary edema Status: Acute (11) Pulmonary edema Status: Acute (12) Sjogrens syndrome Status: Acute (13) UTI (urinary tract infection) Status: Acute (14) Viral upper respiratory illness Status: Acute (15) Vomiting and diarrhea Status: Acute Review of Systems Constitutional: No see HPI, No fever, No chills, No sweats, No weight loss, No weakness, No fatigue, No problem reported Eyes: No see HPI, No worsening of vision, No eye pain, No redness, No discharge , No diplopia, No problem reported ENT: No see HPI, No hearing loss, No unusual epistaxis, No nasal symptoms, No sore throat, No tinnitus, No dental problems, No trouble swallowing, No problem reported Respiratory: + shortness of breath, No see HPI, No cough, No sputum, No wheezing, No dyspnea on exertion, No dyspnea at rest, No hemoptysis, No problem reported Cardiac: No see HPI, No chest pain, No orthopnea, No PND, No edema, No claudication, No palpitations, No problem reported Abdomen: No see HPI, No pain, No nausea, No vomiting, No diarrhea, No constipation, No GI bleeding, No problem reported Musculoskeletal: No see HPI, No joint pain, No muscle pain, No swelling, No calf pain, No problem reported Female : No see HPI, No dysuria, No urinary frequency, No hematuria, No incontinence, No abnormal vaginal bleeding, No vaginal discharge, No problem reported Neurologic: No see HPI, No memory loss, No paralysis, No weakness, No numbness/ tingling, No vertigo, No balance problems, No problem reported Psychiatric: No see HPI, No depression symptoms, No anhedonism, No anxiety, No insomnia, No substance abuse, No problem reported Heme: No see HPI, No abnormal bleeding/bruising, No clotting problems, No swollen lymph nodes, No night sweats, No problem reported Endo: No see HPI, No fatigue, No excessive thirst, No excessive urination, No problem reported Skin: No see HPI, No rash, No itch, No new/changing skin lesions, No color change, No bleeding, No problem reported Objective Vital Signs Date Time Temp Pulse Resp B/P (MAP) Pulse Ox O2 Delivery O2 Flow Rate FiO2 04/26/17 16:00 Room Air 04/26/17 15:29 36.5 90 18 176/90 (118) 100 Room Air 04/26/17 14:31 99 Room Air 04/26/17 12:48 36.6 88 18 190/107 (134) 99 Room Air 04/26/17 12:00 Room Air 04/26/17 11:15 36.7 78 16 168/110 (129) 99 Room Air 04/26/17 09:29 100 Room Air 04/26/17 08:00 Room Air 04/26/17 07:47 36.6 90 16 158/98 (118) 100 Room Air 04/26/17 04:05 Room Air 04/26/17 03:55 36.5 73 16 138/85 (102) 97 Room Air 04/26/17 00:05 Room Air 04/25/17 23:01 36.9 85 20 163/93 (116) 96 Room Air 04/25/17 21:25 82 178/99 (125) 04/25/17 20:00 Room Air 04/25/17 20:00 178/99 (125) 04/25/17 19:38 36.6 85 18 172/102 (125) 98 Room Air 172/97 (122) Physical Exam General Appearance: no apparent distress Eyes: normal inspection, EOMI ENT: normal ENT inspection, hearing grossly normal Neck: supple Respiratory/Chest: chest non-tender, + crackles, + rales Cardiovascular: regular rate, rhythm, no edema, no gallop, no murmur Abdomen: normal bowel sounds, non tender, soft, no pulsatile mass Extremities: normal range of motion, non-tender, normal inspection, no pedal edema, no calf tenderness 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, no motor/sensory deficits, alert, normal mood/affect, oriented x 3 Skin: normal color, warm/dry, no rash Laboratory Results Last 24 Hours Test 04/26/17 05:50 Sodium Level 143 mmol/L Potassium Level 5.1 mmol/L Chloride Level 115 mmol/L Carbon Dioxide Level 22 mmol/L Anion Gap 6.0 mmol/L Blood Urea Nitrogen 40 mg/dl Creatinine 1.05 mg/dl Est Creatinine Clear Calc Drug Dose 56.0 ml/min Estimated GFR () 72.2 Estimated GFR (Non- 62.3 BUN/Creatinine Ratio 37.6 Random Glucose 103 mg/dl Calcium Level 8.9 mg/dl Assessment and Plan 51 years old female presented to the hospital with chest tightness and shortness of breath Assessment Acute and chronic diastolic congestive heart failure Shortness of breath and chest tightness secondary to above Positive troponin secondary to demand ischemia Cryoglobulinemia and Sjogren syndrome Rectal bleed consistent with hemorrhoids Hematuria Anemia of chronic disease Plan Patient is significantly improving Bumex 0.5 mg twice a day appears to be successful diuresis She is feeling better today We'll recheck her renal function tomorrow Anemia study revealed anemia of chronic diseases Normal folate and iron study Elevated B12 which is expected an acute conditions Patient will need to follow-up with commercial real estate associate as an outpatient for further ischemic workup Start low-dose heparin for DVT prophylaxis Will obtain lipid panel and hemoglobin A1c to certify patient risk Echo results / copied * Left ventricular systolic function is normal. * No regional wall motion abnormalities noted. * Ejection Fraction = 55-60%. * No significant valvular pathology. * Grade I diastolic dysfunction, (abnormal relaxation pattern).
[2017-04-26] MEDS ORDERED: BISACODYL 10 MG SUPP PR STA (18:26)
[2017-04-26] MEDS: CARVEDILOL 12.5 MG TAB PO SCH (18:49)
[2017-04-26] MEDS ORDERED: HydrALAZINE HCL 20 MG/ML VIAL IV. STA (21:14)
[2017-04-26] MEDS: TRAMADOL HCL 50 MG TAB PO PRN (23:57)
[2017-04-27] VITALS (8 sets, daily range): BP systolic 126–159; BP diastolic 75–90; PULSE 67–79; TEMP 36.4–36.9; O2SAT 95–100
[2017-04-27] MEDS ORDERED: NURSING VERBAL MED ORDER ONE (00:30)
[2017-04-27] MEDS: ZOLPIDEM TARTRATE 5 MG TAB PO PRN ×2 (01:20→21:09)
[2017-04-27 05:44] LABS: HEMATOCRIT 21.4 % (37-47); IG% 2.2 %; LYMPH % 9.1 %; LYMPH ABS # 0.67 K/uL (1.2-3.4); MEAN CELL VOLUME 91.5 fL (80-100); MEAN CORPUSCULAR HEMOGLOBIN 29.9 pg (25-34); MEAN CORPUSCULAR HGB CONC 32.7 g/dl (32-36); MEAN PLATELET VOLUME 10.7 fL (7.4-10.4); MONO % 10.5 %; NEUT % 78.2 %; PLATELET COUNT 155 K/uL (130-400); RED BLOOD COUNT 2.34 M/uL (4.2-5.4); WHITE BLOOD COUNT 7.33 K/uL (4.8-10.8)
[2017-04-27 06:12] LABS: BUN/CREATININE RATIO 38.2 (10-20); CALCIUM 8.1 mg/dl (8.5-10.1); CREATININE 0.98 mg/dl (0.60-1.20); MAGNESIUM 2.6 mg/dl (1.8-2.4); POTASSIUM 5.1 mmol/L (3.5-5.1)
[2017-04-27 06:17] LABS: ALB/GLOB RATIO 1.1 (0.9-2); CHOLESTEROL/HDL RATIO 2.8; PHOSPHORUS 3.4 mg/dl (2.5-4.9)
[2017-04-27 06:21] LABS: COMPLETE YES; LARGE PLATELETS 1+
[2017-04-27] MEDS: LEVOTHYROXINE 75 MCG TAB PO SCH (06:24)
[2017-04-27 07:13] LABS: ESTIMATED AVERAGE GLUCOSE 108 mg/dl; HA1C FLAG Normal (Normal)
[2017-04-27] MEDS: ESCITALOPRAM OXALATE 10 MG TAB PO SCH (08:09)
[2017-04-27] MEDS: ASPIRIN 81 MG ECTAB PO SCH (08:09)
[2017-04-27] MEDS: LISINOPRIL 2.5 MG TAB PO SCH (08:10)
[2017-04-27] MEDS: HYDROXYCHLOROQUINE SULFATE 200 MG TAB PO SCH ×2 (08:11→21:09)
[2017-04-27] MEDS: CARVEDILOL 12.5 MG TAB PO SCH ×2 (08:12→21:09)
[2017-04-27] MEDS: DICLOFENAC SOD 1% GEL 100 GM TUBE EXT SCH ×4 (08:12→21:00)
[2017-04-27 08:24] LABS: HEMATOCRIT 21.8 % (37-47)
--- NOTE | 2017-04-27 10:25 | DIAGNOSTIC IMAGING REPORT ---
SINGLE VIEW CHEST CLINICAL HISTORY: Dyspnea. FINDINGS: An AP, portable, upright chest radiograph is compared to study dated 04/24/2017. The examination is degraded by portable technique and patient rotation. The cardiomediastinal silhouette is unremarkable. Chronic interstitial thickening is similar to previous. Trace pleural effusions are identified and there are bibasilar airspace opacities. There is no pneumothorax. The bony thorax appears intact. Cholecystectomy clips are identified in the right upper quadrant. IMPRESSION: There are trace pleural effusions and bibasilar airspace opacities, similar to the 04/24/2017 examination. This could represent atelectasis versus pneumonia/aspiration pneumonitis. Clinical correlation will be required. Electronically signed by: Long Banks M.D. 04/27/2017 10:24 AM Dictated Date/Time: 04/27/2017 10:22 AM
[2017-04-27 10:45] LABS: C-REACTIVE PROTEIN < 0.29 mg/dl (0-0.29)
--- NOTE | 2017-04-27 12:10 | Cardiology Consultation ---
Cardiology Consultation Date of Consultation: Apr 27, 2017. Requesting Physician: Dr. Hyde Attending Physician: Dr. Blanton Reason for Consultation: Chest pain, CHF Pt evaluation today including: conversation w/ patient, physical exam, chart review, lab review, review of studies, review of inpatient medication list, conversation w/ attending History of Present Illness Mrs. Harris is a 51-year-old female with a history of Sjogren's syndrome, cryoglobulinemia, Rheumatoid arthritis, myoclonic dystrophy type II, hypothyroidism, anemia, vitamin B12 deficiency, and chronic kidney disease who was admitted on 04/24/17 in the setting of chest tightness, shortness of breath , edema, and diffuse body aches. She was recently admitted from 04/17/17 through 04/20/17 in the setting of generalized malaise, diffuse arthralgias with myalgias, abdominal bloating and pain, nausea, and vomiting. She was treated with prednisone for what was presumed to be a flare-up of her autoimmune disease. She reports that her weight was up about 5 lbs prior to that hospitalization. Following discharge, she noted an additional 20 lbs weight gain. She noted edema of her legs, arms, and abdomen along with the weight gain. Her breathing progressively worsened to the point where she felt short of breath with talking. She noted orthopnea and PND as well. She also noted persistent chest tightness, which would radiate into her back between her shoulder blades. The discomfort was constant in nature and not worsened with exertion. She presented to the ED for further evaluation and treatment. She was given IV Bumex and morphine with resolution of her chest discomfort. She has been given additional PO Bumex with this admission, but it is currently on hold due to a rise in her creatinine. The patient is currently being seen in her room 277 bed 2. She reports that she has had intermittent chest tightness over the last year, which is similar to her presenting discomfort. The pain typically wakes her up at night, and she takes a baby aspirin with resolution of the discomfort within 5 minutes. She can also note it at rest during the day, such as when driving, and that discomfort lasts up to 30 minutes in duration before self resolving. She has had no further chest discomfort since admission. She reports that her breathing has improved. She notes a cough with lying down but no orthopnea. She has been able to ambulate about her room with no limiting dyspnea. She continues to note swelling up to her hips bilaterally, abdominal bloating, and swelling of her arms. She denies palpitations, lightheadedness, dizziness, syncope, or presyncope. She denies cerebrovascular symptoms. She admits to bleeding hemorrhoids as well as headaches. Review of Systems: As noted in HPI. All other 10 point ROS reviewed and otherwise negative. Past Medical/Surgical History Surgical history: 1. Surgical fixation of right hip fracture 2. Tubal ligation 3. section 4. Cholecystectomy Family History Cancer Heart disease Hypertension Kidney stones No family history or premature CAD. Social History Smoking Status: Never Smoker History of Alcohol Use: No She is with 2 children and grandchildren. She notes a 20 pack year history of smoking, but she quit in 2006. She denies alcohol or recreational drug use. Review of Systems Respiratory: + shortness of breath, No see HPI, No cough, No sputum, No wheezing, No dyspnea on exertion, No dyspnea at rest, No hemoptysis, No problem reported Cardiac: No see HPI, No chest pain, No orthopnea, No PND, No edema, No claudication, No palpitations, No problem reported Allergies Coded Allergies: Sulfamethoxazole w/Trimethoprim (Verified Allergy, Intermediate, rash, ) Medications Current Inpatient Medications Medications (Trade) Dose Ordered Sig/Selena Route Start Time Stop Time Status Last Admin Dose Admin Miscellaneous (Iv Fluids Completed) 1 ea PRN PRN N/A 04/24/17 10:00 04/24/18 09:59 Acetaminophen (Tylenol Tab) 650 mg Q4H PRN PO 04/24/17 10:30 05/24/17 10:29 04/26/17 19:30 650 MG Al Hydrox/Mg Hydrox/Simethicone (Maalox Max Susp) 15 ml Q4H PRN PO 04/24/17 10:30 05/24/17 10:29 Magnesium Hydroxide (Milk Of Magnesia Susp) 30 ml Q12H PRN PO 04/24/17 10:30 05/24/17 10:29 04/26/17 09:17 30 ML Ondansetron HCl (Zofran Inj) 4 mg Q6H PRN IV 04/24/17 10:30 05/24/17 10:29 04/24/17 21:30 4 MG Aspirin (Ecotrin Tab) 81 mg QAM PO 04/25/17 09:00 05/25/17 08:59 04/27/17 08:09 81 MG Bumetanide (Bumex Tab) 0.5 mg BID17 PO 04/24/17 17:00 05/24/17 16:59 Future Hold 04/25/17 07:55 0.5 MG Diclofenac Sodium (Voltaren 1% Top Gel) 1 appln QID EXT 04/24/17 13:00 05/24/17 12:59 04/25/17 20:17 1 APPLN Escitalopram Oxalate (Lexapro Tab) 5 mg DAILY PO 04/25/17 09:00 05/25/17 08:59 04/27/17 08:09 5 MG Hydroxychloroquine Sulfate (Plaquenil Tab) 200 mg BID PO 04/24/17 21:00 05/24/17 20:59 04/27/17 08:11 200 MG Levothyroxine Sodium (Synthroid Tab) 75 mcg DAILYBB PO 04/25/17 06:30 05/25/17 06:29 04/27/17 06:24 75 MCG Lisinopril (Zestril Tab) 2.5 mg DAILY PO 04/25/17 09:00 05/25/17 08:59 04/27/17 08:10 2.5 MG Miscellaneous Information (Order Awaiting Action) 1 ea QS N/A 04/24/17 11:15 05/24/17 11:14 Tramadol HCl (Ultram Tab) 50 mg Q4H PRN PO 04/24/17 16:00 05/24/17 15:59 04/26/17 23:57 50 MG Morphine Sulfate (MoRPHine SULFATE INJ) 3 mg Q4H PRN IV 04/24/17 21:00 05/08/17 20:59 04/24/17 21:31 3 MG Prednisone (PredniSONE TAB) 60 mg DAILY PO 04/26/17 09:00 05/26/17 08:59 04/27/17 08:10 60 MG Carvedilol (Coreg Tab) 12.5 mg BID PO 04/26/17 21:00 05/26/17 20:59 04/27/17 08:12 12.5 MG Zolpidem Tartrate (Ambien Tab) 5 mg HSZ PRN PO 04/27/17 00:30 05/27/17 00:29 04/27/17 01:20 5 MG Physical Exam Vital Signs Past 12 Hours Date Time Temp Pulse Resp B/P (MAP) Pulse Ox O2 Delivery O2 Flow Rate FiO2 04/27/17 07:11 36.6 72 16 135/79 (97) 98 04/27/17 04:05 36.4 69 18 126/75 (92) 96 Room Air 04/27/17 04:05 Room Air 04/27/17 00:05 Room Air Constitutional: Alert, oriented, in no acute distress HEENT: Head is atraumatic and normocephalic. EOMs intact. Sclera anicteric. Face is symmetric. No perioral cyanosis. Mucous membranes moist. Neck: Supple, elevated jugular venous pressure, no carotid bruits Pulmonary: Normal respiratory effort, decreased breath sounds but otherwise clear to auscultation bilaterally Cardiac: Regular rate and rhythm, normal S1 and S2, no gallops, no rubs, no murmurs Extremities: +1 lower extremity edema extending to the hips bilaterally. No clubbing or cyanosis. Pulses intact Abdomen: Normal bowel sounds, soft, non-tender, no abdominal mass palpated Skin: Normal skin color, turgor, and pigmentation, no rash, no skin lesions Neurological: Oriented to person, place, and time Data Laboratory Results: Last 24 Hours Test 04/27/17 05:10 04/27/17 08:17 04/27/17 09:58 White Blood Count 7.33 K/uL Red Blood Count 2.34 M/uL Hemoglobin 7.0 g/dL 7.4 g/dL Hematocrit 21.4 % 21.8 % Mean Corpuscular Volume 91.5 fL Mean Corpuscular Hemoglobin 29.9 pg Mean Corpuscular Hemoglobin Concent 32.7 g/dl Platelet Count 155 K/uL Mean Platelet Volume 10.7 fL Neutrophils (%) (Auto) 78.2 % Lymphocytes (%) (Auto) 9.1 % Monocytes (%) (Auto) 10.5 % Eosinophils (%) (Auto) 0.0 % Basophils (%) (Auto) 0.0 % Neutrophils # (Auto) 5.73 K/uL Lymphocytes # (Auto) 0.67 K/uL Monocytes # (Auto) 0.77 K/uL Eosinophils # (Auto) 0.00 K/uL Basophils # (Auto) 0.00 K/uL RDW Standard Deviation 49.1 fL RDW Coefficient of Variation 15.2 % Immature Granulocyte % (Auto) 2.2 % Immature Granulocyte # (Auto) 0.16 K/uL Large Platelets 1+ Sodium Level 142 mmol/L Potassium Level 5.1 mmol/L Chloride Level 114 mmol/L Carbon Dioxide Level 23 mmol/L Anion Gap 4.0 mmol/L Blood Urea Nitrogen 37 mg/dl Creatinine 0.98 mg/dl Est Creatinine Clear Calc Drug Dose 60.0 ml/min Estimated GFR () 78.5 Estimated GFR (Non- 67.7 BUN/Creatinine Ratio 38.2 Random Glucose 100 mg/dl Estimated Average Glucose 108 mg/dl Hemoglobin A1c 5.4 % Calcium Level 8.1 mg/dl Phosphorus Level 3.4 mg/dl Magnesium Level 2.6 mg/dl Total Bilirubin 0.2 mg/dl Aspartate Amino Transf (AST/SGOT) 16 U/L Alanine Aminotransferase (ALT/SGPT) 18 U/L Alkaline Phosphatase 78 U/L Total Protein 4.0 gm/dl Albumin 2.1 gm/dl Globulin 1.9 gm/dl Albumin/Globulin Ratio 1.1 Triglycerides Level 78 mg/dl Cholesterol Level 210 mg/dl HDL Cholesterol 74 mg/dl LDL Cholesterol, Calculated 120 mg/dl VLDL Cholesterol, Calculated 16 mg/dl Cholesterol/HDL Ratio 2.8 D-Dimer 3520 ug/L FEU Troponin I < 0.015 ng/ml C-Reactive Protein < 0.29 mg/dl Procalcitonin 0.05 ng/ml CXR 04/24/2017: 1. Small right and trace left pleural effusions which have increased since prior exam. Associated bibasilar opacities favor atelectasis. 2. Pulmonary vascular congestion. EKG: Normal sinus rhythm at 98 bpm. Echo: 1. Left ventricular systolic function is normal. 2. No regional wall motion abnormalities noted. 3. Ejection Fraction = 55-60%. 4. No significant valvular pathology. 5. Grade I diastolic dysfunction, (abnormal relaxation pattern). Assessment & Plan ASSESSMENT/PLAN: 1. Hypervolemia: There are appears to be many factors contributing to her hypervolemia. She does have some diastolic dysfunction by echocardiogram. She has also been on high dose prednisone. In addition, she has low serum albumin and proteinuria. She continues to appear hypervolemic on examination today, therefore, further diuresis is recommended as well as fluid restriction. Continue to monitor renal function closely. 2. Chest pain: She has had a history of atypical chest pain over the last year. The discomfort surrounding this hospitalization was similar in quality, but lasted for several days and resolved with diuresis; it was therefore likely related to her hypervolemia. Her mild troponin elevation is likely related to the hypervolemia as well. Her ECG shows no acute ischemic changes. Echo shows normal LV wall motion and systolic function. No further ischemic work-up is recommended during this hospitalization, but a stress echocardiogram could be performed as an outpatient in order to more definitively rule out myocardial ischemia. Thank you for allowing us to see this patient in consultation. The patient was discussed with Dr. Blanton, and the plan was made in collaboration with him.
--- NOTE | 2017-04-27 13:49 | DIAGNOSTIC IMAGING REPORT ---
BILATERAL LOWER EXTREMITY VENOUS DOPPLER CLINICAL HISTORY: Bilateral leg pain and swelling. Evaluate for deep venous thrombus. COMPARISON STUDY: No previous studies for comparison. TECHNIQUE: Sonography of the deep venous system of the bilateral lower extremities was performed. Compression and augmentation were evaluated. FINDINGS: The bilateral common femoral, superficial femoral and popliteal veins were compressible. Augmentation was normal. Flow was shown within the deep calf vessels. IMPRESSION: No evidence of deep venous thrombus within the bilateral lower extremities. Electronically signed by: Gautam Corado M.D. 04/27/2017 1:48 PM Dictated Date/Time: 04/27/2017 1:47 PM
[2017-04-27] MEDS: ACETAMINOPHEN 325 MG TAB PO PRN (14:21)
--- NOTE | 2017-04-27 15:38 | Progress Note ---
Subjective Date of Service: Apr 27, 2017. Subjective Pt evaluation today including: conversation w/ patient, physical exam, chart review, lab review, review of studies, review of inpatient medication list Problem List Medical Problems: (1) Acute renal failure Status: Acute (2) CHF (congestive heart failure) Status: Acute (3) Dehydration Status: Acute (4) Edema Status: Acute (5) Elevated troponin Status: Acute (6) Fluid overload Status: Acute (7) Hypertension Status: Acute (8) Myositis Status: Acute (9) Precordial chest pain Status: Acute (10) Pulmonary edema Status: Acute (11) Pulmonary edema Status: Acute (12) Sjogrens syndrome Status: Acute (13) UTI (urinary tract infection) Status: Acute (14) Viral upper respiratory illness Status: Acute (15) Vomiting and diarrhea Status: Acute Review of Systems Constitutional: + weakness, + fatigue, No see HPI, No fever, No chills, No sweats, No weight loss, No problem reported Eyes: No see HPI, No worsening of vision, No eye pain, No redness, No discharge , No diplopia, No problem reported ENT: No see HPI, No hearing loss, No unusual epistaxis, No nasal symptoms, No sore throat, No tinnitus, No dental problems, No trouble swallowing, No problem reported Respiratory: No see HPI, No cough, No sputum, No wheezing, No shortness of breath, No dyspnea on exertion, No dyspnea at rest, No hemoptysis, No problem reported Cardiac: + edema, No see HPI, No chest pain, No orthopnea, No PND, No claudication, No palpitations, No problem reported Abdomen: No see HPI, No pain, No nausea, No vomiting, No diarrhea, No constipation, No GI bleeding, No problem reported Musculoskeletal: + joint pain, + muscle pain, No see HPI, No swelling, No calf pain, No problem reported Female : No see HPI, No dysuria, No urinary frequency, No hematuria, No incontinence, No abnormal vaginal bleeding, No vaginal discharge, No problem reported Neurologic: No see HPI, No memory loss, No paralysis, No weakness, No numbness/ tingling, No vertigo, No balance problems, No problem reported Psychiatric: No see HPI, No depression symptoms, No anhedonism, No anxiety, No insomnia, No substance abuse, No problem reported Heme: No see HPI, No abnormal bleeding/bruising, No clotting problems, No swollen lymph nodes, No night sweats, No problem reported Endo: No see HPI, No fatigue, No excessive thirst, No excessive urination, No problem reported Skin: No see HPI, No rash, No itch, No new/changing skin lesions, No color change, No bleeding, No problem reported Objective Vital Signs Date Time Temp Pulse Resp B/P (MAP) Pulse Ox O2 Delivery O2 Flow Rate FiO2 04/27/17 15:23 36.9 73 18 151/83 (105) 95 Room Air 04/27/17 12:00 Room Air 04/27/17 12:00 36.7 76 16 149/84 (105) 100 04/27/17 08:00 Room Air 04/27/17 07:11 36.6 72 16 135/79 (97) 98 04/27/17 04:05 36.4 69 18 126/75 (92) 96 Room Air 04/27/17 04:05 Room Air 04/27/17 00:05 Room Air 04/26/17 23:01 36.4 75 16 150/83 (105) 96 Room Air 04/26/17 20:44 36.5 72 18 176/103 (127) 97 Room Air 04/26/17 19:55 Room Air 04/26/17 18:23 89 170/100 (123) 04/26/17 16:00 Room Air Physical Exam General Appearance: no apparent distress Eyes: normal inspection, EOMI ENT: normal ENT inspection, hearing grossly normal Neck: supple Respiratory/Chest: chest non-tender, no respiratory distress, no accessory muscle use, + crackles, + rales Cardiovascular: regular rate, rhythm Abdomen: normal bowel sounds, non tender, soft, no organomegaly Extremities: normal range of motion, non-tender, normal inspection, + pedal edema, + swelling 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, no motor/sensory deficits, alert, normal mood/affect, oriented x 3 Skin: normal color, warm/dry, no rash Laboratory Results Last 24 Hours Test 04/27/17 05:10 04/27/17 08:17 04/27/17 09:58 White Blood Count 7.33 K/uL Red Blood Count 2.34 M/uL Hemoglobin 7.0 g/dL 7.4 g/dL Hematocrit 21.4 % 21.8 % Mean Corpuscular Volume 91.5 fL Mean Corpuscular Hemoglobin 29.9 pg Mean Corpuscular Hemoglobin Concent 32.7 g/dl Platelet Count 155 K/uL Mean Platelet Volume 10.7 fL Neutrophils (%) (Auto) 78.2 % Lymphocytes (%) (Auto) 9.1 % Monocytes (%) (Auto) 10.5 % Eosinophils (%) (Auto) 0.0 % Basophils (%) (Auto) 0.0 % Neutrophils # (Auto) 5.73 K/uL Lymphocytes # (Auto) 0.67 K/uL Monocytes # (Auto) 0.77 K/uL Eosinophils # (Auto) 0.00 K/uL Basophils # (Auto) 0.00 K/uL RDW Standard Deviation 49.1 fL RDW Coefficient of Variation 15.2 % Immature Granulocyte % (Auto) 2.2 % Immature Granulocyte # (Auto) 0.16 K/uL Large Platelets 1+ Sodium Level 142 mmol/L Potassium Level 5.1 mmol/L Chloride Level 114 mmol/L Carbon Dioxide Level 23 mmol/L Anion Gap 4.0 mmol/L Blood Urea Nitrogen 37 mg/dl Creatinine 0.98 mg/dl Est Creatinine Clear Calc Drug Dose 60.0 ml/min Estimated GFR () 78.5 Estimated GFR (Non- 67.7 BUN/Creatinine Ratio 38.2 Random Glucose 100 mg/dl Estimated Average Glucose 108 mg/dl Hemoglobin A1c 5.4 % Calcium Level 8.1 mg/dl Phosphorus Level 3.4 mg/dl Magnesium Level 2.6 mg/dl Total Bilirubin 0.2 mg/dl Aspartate Amino Transf (AST/SGOT) 16 U/L Alanine Aminotransferase (ALT/SGPT) 18 U/L Alkaline Phosphatase 78 U/L Total Protein 4.0 gm/dl Albumin 2.1 gm/dl Globulin 1.9 gm/dl Albumin/Globulin Ratio 1.1 Triglycerides Level 78 mg/dl Cholesterol Level 210 mg/dl HDL Cholesterol 74 mg/dl LDL Cholesterol, Calculated 120 mg/dl VLDL Cholesterol, Calculated 16 mg/dl Cholesterol/HDL Ratio 2.8 D-Dimer 3520 ug/L FEU Troponin I < 0.015 ng/ml C-Reactive Protein < 0.29 mg/dl Procalcitonin 0.05 ng/ml Assessment and Plan 51 years old female presented to the hospital with chest tightness and shortness of breath Assessment Acute and chronic diastolic congestive heart failure Shortness of breath and chest tightness secondary to above Positive troponin secondary to demand ischemia Cryoglobulinemia and Sjogren syndrome Rectal bleed consistent with hemorrhoids Hematuria Anemia of chronic disease with sudden drop in hgb from 9 to 7 Plan Patient is significantly improving Bumex 0.5 mg twice a day appears to be successful diuresis, it was held for one day then the Hgb dropped, no apparant bleeding, appears dilutional which very concerning as she accumulates fluids extremely fast. 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 * No regional wall motion abnormalities noted. * Ejection Fraction = 55-60%. * No significant valvular pathology. * Grade I diastolic dysfunction, (abnormal relaxation pattern).
[2017-04-27] MEDS: BUMETANIDE 1 MG TAB PO SCH (16:57)
[2017-04-28] VITALS (16 sets, daily range): BP systolic 149–181; BP diastolic 76–98; PULSE 60–80; TEMP 36.3–37.1; O2SAT 94–100
[2017-04-28] MEDS: LEVOTHYROXINE 75 MCG TAB PO SCH (05:44)
[2017-04-28 07:34] LABS: HEMATOCRIT 22.5 % (37-47); IG% 2.7 %; LYMPH % 14.7 %; LYMPH ABS # 0.88 K/uL (1.2-3.4); MEAN CELL VOLUME 92.2 fL (80-100); MEAN CORPUSCULAR HEMOGLOBIN 30.3 pg (25-34); MEAN CORPUSCULAR HGB CONC 32.9 g/dl (32-36); MEAN PLATELET VOLUME 10.6 fL (7.4-10.4); MONO % 11.5 %; NEUT % 70.1 %; PLATELET COUNT 157 K/uL (130-400); RED BLOOD COUNT 2.44 M/uL (4.2-5.4)
[2017-04-28] MEDS: ASPIRIN 81 MG ECTAB PO SCH (07:58)
[2017-04-28] MEDS: ESCITALOPRAM OXALATE 10 MG TAB PO SCH (07:58)
[2017-04-28] MEDS: CARVEDILOL 12.5 MG TAB PO SCH ×2 (07:59→20:50)
[2017-04-28] MEDS: BUMETANIDE 1 MG TAB PO SCH (07:59)
[2017-04-28] MEDS: LISINOPRIL 2.5 MG TAB PO SCH (07:59)
[2017-04-28] MEDS: HYDROXYCHLOROQUINE SULFATE 200 MG TAB PO SCH ×2 (08:00→20:50)
[2017-04-28] MEDS: DICLOFENAC SOD 1% GEL 100 GM TUBE EXT SCH ×4 (08:08→20:49)
[2017-04-28 08:09] LABS: ALB/GLOB RATIO 1.1 (0.9-2); BUN/CREATININE RATIO 44.8 (10-20); CALCIUM 8.1 mg/dl (8.5-10.1); CREATININE 0.66 mg/dl (0.60-1.20); MAGNESIUM 2.5 mg/dl (1.8-2.4); POTASSIUM 4.7 mmol/L (3.5-5.1)
[2017-04-28 08:25] LABS: COMPLETE YES
[2017-04-28] MEDS ORDERED: LISINOPRIL 2.5 MG TAB PO SCH (09:00)
[2017-04-28] MEDS ORDERED: NURSING DECISION MEDICATION ORDER SCH (09:45)
[2017-04-28] MEDS ORDERED: SODIUM CHLORIDE 0.65% NA SOLN 45 ML (OCEAN) PRN (10:00)
[2017-04-28] MEDS: ALBUT/IPRATROP 3MG/0.5MG NEB 3 ML VIAL INH SCH ×3 (11:08→19:32)
[2017-04-28] MEDS: AZITHROMYCIN 250 MG TAB PO SCH (11:14)
--- NOTE | 2017-04-28 13:01 | Progress Note ---
Subjective Date of Service: Apr 28, 2017. Subjective Pt evaluation today including: conversation w/ patient, physical exam, chart review, lab review, review of inpatient medication list Problem List Medical Problems: (1) Acute renal failure Status: Acute (2) CHF (congestive heart failure) Status: Acute (3) Dehydration Status: Acute (4) Edema Status: Acute (5) Elevated troponin Status: Acute (6) Fluid overload Status: Acute (7) Hypertension Status: Acute (8) Myositis Status: Acute (9) Precordial chest pain Status: Acute (10) Pulmonary edema Status: Acute (11) Pulmonary edema Status: Acute (12) Sjogrens syndrome Status: Acute (13) UTI (urinary tract infection) Status: Acute (14) Viral upper respiratory illness Status: Acute (15) Vomiting and diarrhea Status: Acute Review of Systems Constitutional: + fatigue, No see HPI, No fever, No chills, No sweats, No weight loss, No weakness, No problem reported Eyes: No see HPI, No worsening of vision, No eye pain, No redness, No discharge , No diplopia, No problem reported ENT: No see HPI, No hearing loss, No unusual epistaxis, No nasal symptoms, No sore throat, No tinnitus, No dental problems, No trouble swallowing, No problem reported Respiratory: + shortness of breath, No see HPI, No cough, No sputum, No wheezing, No dyspnea on exertion, No dyspnea at rest, No hemoptysis, No problem reported Cardiac: + chest pain, No see HPI, No orthopnea, No PND, No edema, No claudication, No palpitations, No problem reported Abdomen: No see HPI, No pain, No nausea, No vomiting, No diarrhea, No constipation, No GI bleeding, No problem reported Musculoskeletal: No see HPI, No joint pain, No muscle pain, No swelling, No calf pain, No problem reported Neurologic: No see HPI, No memory loss, No paralysis, No weakness, No numbness/ tingling, No vertigo, No balance problems, No problem reported Psychiatric: No see HPI, No depression symptoms, No anhedonism, No anxiety, No insomnia, No substance abuse, No problem reported Heme: No see HPI, No abnormal bleeding/bruising, No clotting problems, No swollen lymph nodes, No night sweats, No problem reported Endo: No see HPI, No fatigue, No excessive thirst, No excessive urination, No problem reported Skin: No see HPI, No rash, No itch, No new/changing skin lesions, No color change, No bleeding, No problem reported Medications Current Inpatient Medications Medications (Trade) Dose Ordered Sig/Selena Route Start Time Stop Time Status Last Admin Dose Admin Miscellaneous (Iv Fluids Completed) 1 ea PRN PRN N/A 04/24/17 10:00 04/24/18 09:59 Acetaminophen (Tylenol Tab) 650 mg Q4H PRN PO 04/24/17 10:30 05/24/17 10:29 04/27/17 14:21 650 MG Al Hydrox/Mg Hydrox/Simethicone (Maalox Max Susp) 15 ml Q4H PRN PO 04/24/17 10:30 05/24/17 10:29 Magnesium Hydroxide (Milk Of Magnesia Susp) 30 ml Q12H PRN PO 04/24/17 10:30 05/24/17 10:29 04/26/17 09:17 30 ML Ondansetron HCl (Zofran Inj) 4 mg Q6H PRN IV 04/24/17 10:30 05/24/17 10:29 04/24/17 21:30 4 MG Aspirin (Ecotrin Tab) 81 mg QAM PO 04/25/17 09:00 05/25/17 08:59 04/28/17 07:58 81 MG Bumetanide (Bumex Tab) 0.5 mg BID17 PO 04/24/17 17:00 05/24/17 16:59 Future hold 04/28/17 07:59 0.5 MG Diclofenac Sodium (Voltaren 1% Top Gel) 1 appln QID EXT 04/24/17 13:00 05/24/17 12:59 04/25/17 20:17 1 APPLN Escitalopram Oxalate (Lexapro Tab) 5 mg DAILY PO 04/25/17 09:00 05/25/17 08:59 04/28/17 07:58 5 MG Hydroxychloroquine Sulfate (Plaquenil Tab) 200 mg BID PO 04/24/17 21:00 05/24/17 20:59 04/28/17 08:00 200 MG Levothyroxine Sodium (Synthroid Tab) 75 mcg DAILYBB PO 04/25/17 06:30 05/25/17 06:29 04/28/17 05:44 75 MCG Miscellaneous Information (Order Awaiting Action) 1 ea QS N/A 04/24/17 11:15 05/24/17 11:14 Tramadol HCl (Ultram Tab) 50 mg Q4H PRN PO 04/24/17 16:00 05/24/17 15:59 04/26/17 23:57 50 MG Morphine Sulfate (MoRPHine SULFATE INJ) 3 mg Q4H PRN IV 04/24/17 21:00 05/08/17 20:59 04/24/17 21:31 3 MG Prednisone (PredniSONE TAB) 60 mg DAILY PO 04/26/17 09:00 05/26/17 08:59 04/28/17 07:57 60 MG Carvedilol (Coreg Tab) 12.5 mg BID PO 04/26/17 21:00 05/26/17 20:59 04/28/17 07:59 12.5 MG Zolpidem Tartrate (Ambien Tab) 5 mg HSZ PRN PO 04/27/17 00:30 05/27/17 00:29 04/27/17 21:09 5 MG Lisinopril (Zestril Tab) 5 mg DAILY PO 04/29/17 09:00 05/29/17 08:59 Sodium Chloride ([place] Nasal [place]) 1 sprays PRN PRN NA 04/28/17 10:00 05/28/17 09:59 Furosemide 20 mg/ Syringe 2 ml @ 4 mls/min TODAY@1100,1300 IV 04/28/17 11:00 04/28/17 18:00 Azithromycin (Zithromax Tab) 500 mg QAM PO 04/28/17 10:16 05/05/17 10:15 04/28/17 11:14 500 MG Sodium Chloride ([place] Nasal [place]) 2 sprays QID NA 04/28/17 13:00 05/28/17 12:59 Albuterol/ Ipratropium (Duoneb) 3 ml QIDR INH 04/28/17 12:00 05/28/17 11:59 04/28/17 11:08 3 ML Objective Vital Signs Date Time Temp Pulse Resp B/P (MAP) Pulse Ox O2 Delivery O2 Flow Rate FiO2 04/28/17 12:30 Room Air 04/28/17 11:29 37.0 71 18 160/90 (113) 94 Room Air 04/28/17 11:16 78 16 97 Room Air 04/28/17 08:00 Room Air 04/28/17 06:58 36.7 65 18 173/92 (119) 98 Room Air 04/28/17 05:26 Room Air 04/28/17 04:10 36.6 63 16 149/76 (100) 98 Room Air 04/27/17 23:52 Room Air 04/27/17 23:07 36.4 67 20 144/90 (108) 97 Room Air 04/27/17 20:00 97 Room Air 04/27/17 19:34 36.9 79 18 159/89 (112) 100 Room Air 04/27/17 16:00 95 Room Air 04/27/17 15:23 36.9 73 18 151/83 (105) 95 Room Air Physical Exam General Appearance: WD/WN, no apparent distress Eyes: normal inspection, EOMI ENT: normal ENT inspection, hearing grossly normal Neck: supple Respiratory/Chest: chest non-tender, lungs clear, normal breath sounds, no respiratory distress, no accessory muscle use Cardiovascular: regular rate, rhythm, no edema, no gallop, no JVD, no murmur Abdomen: non tender, soft, no organomegaly Extremities: normal range of motion, + pedal edema, + swelling Neurologic/Psychiatric: home demonstrator II-XII nml as tested, no motor/sensory deficits, alert, normal mood/affect, oriented x 3 Skin: warm/dry, no rash, + pallor Laboratory Results Last 24 Hours Test 04/27/17 15:51 04/28/17 07:21 Lactate Dehydrogenase 273 U/L White Blood Count 6.00 K/uL Red Blood Count 2.44 M/uL Hemoglobin 7.4 g/dL Hematocrit 22.5 % Mean Corpuscular Volume 92.2 fL Mean Corpuscular Hemoglobin 30.3 pg Mean Corpuscular Hemoglobin Concent 32.9 g/dl Platelet Count 157 K/uL Mean Platelet Volume 10.6 fL Neutrophils (%) (Auto) 70.1 % Lymphocytes (%) (Auto) 14.7 % Monocytes (%) (Auto) 11.5 % Eosinophils (%) (Auto) 1.0 % Basophils (%) (Auto) 0.0 % Neutrophils # (Auto) 4.21 K/uL Lymphocytes # (Auto) 0.88 K/uL Monocytes # (Auto) 0.69 K/uL Eosinophils # (Auto) 0.06 K/uL Basophils # (Auto) 0.00 K/uL RDW Standard Deviation 49.2 fL RDW Coefficient of Variation 14.8 % Immature Granulocyte % (Auto) 2.7 % Immature Granulocyte # (Auto) 0.16 K/uL Red Blood Cell Morphology Unremarkable Sodium Level 141 mmol/L Potassium Level 4.7 mmol/L Chloride Level 113 mmol/L Carbon Dioxide Level 24 mmol/L Anion Gap 5.0 mmol/L Blood Urea Nitrogen 30 mg/dl Creatinine 0.66 mg/dl Est Creatinine Clear Calc Drug Dose 89.1 ml/min Estimated GFR () 120.2 Estimated GFR (Non- 103.7 BUN/Creatinine Ratio 44.8 Random Glucose 79 mg/dl Calcium Level 8.1 mg/dl Magnesium Level 2.5 mg/dl Total Bilirubin 0.2 mg/dl Aspartate Amino Transf (AST/SGOT) 17 U/L Alanine Aminotransferase (ALT/SGPT) 18 U/L Alkaline Phosphatase 81 U/L Total Protein 4.3 gm/dl Albumin 2.3 gm/dl Globulin 2.0 gm/dl Albumin/Globulin Ratio 1.1 Assessment and Plan 51 years old female presented to the hospital with chest tightness and shortness of breath Assessment Acute and chronic diastolic congestive heart failure Shortness of breath and chest tightness secondary to above Positive troponin secondary to demand ischemia Cryoglobulinemia and Sjogren syndrome Rectal bleed consistent with hemorrhoids Hematuria Anemia of chronic disease with sudden drop in hgb from 9 to 7, likely secondary to blood loss and dilutional effect of CHF Persistent cough, possible bronchospastic last posterior nasal discharge Plan Agreed to receive 2 units of packed RBC, will use CMV negative irradiated because of the reduced blood bags Bumex 0.5 mg twice a day monitor input and output Cardiology was consulted for her potential severe right-sided heart failure LDH was minimally elevated indicating no significant ecchymosis renal function IS stable but there is a slight increase in BUN Normal folate and iron study Elevated B12 which is expected an acute conditions Continue low-dose heparin for DVT prophylaxis Lipids panel revealed LDL of 120 Obtain chest x-ray Start azithromycin for bronchitis Normal saline nasal spray Tapered down prednisone Hemoglobin A1c was 5.4 Echo results / copied * Left ventricular systolic function is normal. * No regional wall motion abnormalities noted. * Ejection Fraction = 55-60%. * No significant valvular pathology. * Grade I diastolic dysfunction, (abnormal relaxation pattern).
[2017-04-28] MEDS: SODIUM CHLORIDE 0.65% NA SOLN 45 ML (OCEAN) SCH ×3 (13:05→20:49)
--- NOTE | 2017-04-28 13:47 | DIAGNOSTIC IMAGING REPORT ---
SINGLE VIEW CHEST CLINICAL HISTORY: Cough. FINDINGS: An AP, portable, upright chest radiograph is compared to study dated 04/27/2017. The examination is degraded by portable technique and patient rotation. The cardiomediastinal silhouette is unremarkable. Chronic interstitial thickening is similar to previous. Trace pleural effusions are identified and there are bibasilar airspace opacities. There is no pneumothorax. The bony thorax appears intact. Cholecystectomy clips are identified in the right upper quadrant. IMPRESSION: There are trace pleural effusions and bibasilar airspace opacities, similar to yesterday. This likely represents atelectasis. Cortical clinically for evidence of pneumonia/aspiration pneumonitis. Electronically signed by: Long Banks M.D. 04/28/2017 1:46 PM Dictated Date/Time: 04/28/2017 1:45 PM
[2017-04-28] MEDS: ACETAMINOPHEN 325 MG TAB PO PRN (14:52)
[2017-04-28] MEDS ORDERED: NURSING VERBAL MED ORDER ONE (16:45)
[2017-04-28] MEDS: FUROSEMIDE INJ 20 MG in SYRINGE 0 ML IV SCH ×2 (17:23→23:48)
[2017-04-28] MEDS: ZOLPIDEM TARTRATE 5 MG TAB PO PRN (20:53)
[2017-04-29] VITALS (10 sets, daily range): BP systolic 116–165; BP diastolic 69–83; PULSE 68–81; TEMP 36.5–37; O2SAT 94–98
[2017-04-29] MEDS ORDERED: HydrALAZINE HCL 20 MG/ML VIAL IV. PRN (00:15)
[2017-04-29] MEDS: TRAMADOL HCL 50 MG TAB PO PRN (03:37)
[2017-04-29] MEDS: ACETAMINOPHEN 325 MG TAB PO PRN (05:50)
[2017-04-29] MEDS: LEVOTHYROXINE 75 MCG TAB PO SCH (05:50)
[2017-04-29] MEDS: ALBUT/IPRATROP 3MG/0.5MG NEB 3 ML VIAL INH SCH ×2 (07:05→11:02)
[2017-04-29 07:22] LABS: COMPLETE YES; IG% 1.4 %; LYMPH % 10.7 %; LYMPH ABS # 0.82 K/uL (1.2-3.4); MEAN CELL VOLUME 88.8 fL (80-100); MEAN CORPUSCULAR HEMOGLOBIN 29.6 pg (25-34); MEAN CORPUSCULAR HGB CONC 33.3 g/dl (32-36); MEAN PLATELET VOLUME 10.9 fL (7.4-10.4); MONO % 11.4 %; NEUT % 75.5 %; PLATELET COUNT 163 K/uL (130-400); RED BLOOD COUNT 3.38 M/uL (4.2-5.4); WHITE BLOOD COUNT 7.66 K/uL (4.8-10.8)
[2017-04-29] MEDS: ASPIRIN 81 MG ECTAB PO SCH (07:45)
[2017-04-29] MEDS: ESCITALOPRAM OXALATE 10 MG TAB PO SCH (07:45)
[2017-04-29] MEDS: HYDROXYCHLOROQUINE SULFATE 200 MG TAB PO SCH (07:45)
[2017-04-29] MEDS: AZITHROMYCIN 250 MG TAB PO SCH (07:46)
[2017-04-29] MEDS: SODIUM CHLORIDE 0.65% NA SOLN 45 ML (OCEAN) SCH (07:47)
[2017-04-29 07:50] LABS: BUN/CREATININE RATIO 37.6 (10-20); CALCIUM 7.9 mg/dl (8.5-10.1); CREATININE 0.69 mg/dl (0.60-1.20); MAGNESIUM 2.3 mg/dl (1.8-2.4); POTASSIUM 4.3 mmol/L (3.5-5.1)
[2017-04-29] MEDS: DICLOFENAC SOD 1% GEL 100 GM TUBE EXT SCH (07:51)
[2017-04-29 07:53] LABS: ALB/GLOB RATIO 1.1 (0.9-2)
[2017-04-29] MEDS: CARVEDILOL 12.5 MG TAB PO SCH (08:35)
[2017-04-29] MEDS: BUMETANIDE 1 MG TAB PO SCH (08:36)
[2017-04-29] MEDS ORDERED: LISINOPRIL 5 MG TAB PO SCH (09:00)
[2017-04-29] MEDS ORDERED: BMX1 PO (10:09)
[2017-04-29] MEDS ORDERED: ATRINS NEB (10:09)
[2017-04-29] MEDS ORDERED: ZTHM250 PO (10:09)
[2017-04-29] MEDS ORDERED: LSN5 PO (10:09)
[2017-04-29] MEDS ORDERED: ALBINS/ INH (10:09)
[2017-04-29] MEDS ORDERED: CRG125 PO (10:09)
[2017-04-29] MEDS ORDERED: PRED10TA PO (10:09)
[2017-04-29] MEDS ORDERED: SALI0.6510 (10:09)
[2017-04-29] MEDS ORDERED: NEBMAC (10:09)
--- NOTE | 2017-04-29 10:11 | Discharge Instructions ---
Discharge Instructions Date of Service Apr 29, 2017. Admission Reason for Admission: Precordial Chest Pain Discharge Discharge Diagnosis / Problem: fluid overload, severe blood loss anemia Discharge Goals Goal(s): Decrease discomfort Activity Recommendations Activity Limitations: resume your previous activity . Current Hospital Diet Patient's current hospital diet: Regular Diet Discharge Diet Recommended Diet: Low Sodium Diet (2gm Na) Pending Studies Studies pending at discharge: no Laboratory Results Hemoglobin A1c Test 04/27/17 05:10 Range/Units Estimated Average Glucose 108 mg/dl Hemoglobin A1c 5.4 4.5-5.6 % Lipid Panel Test 04/27/17 05:10 Range/Units Triglycerides Level 78 0-150 mg/dl Cholesterol Level 210 H 0-200 mg/dl HDL Cholesterol 74 mg/dl Cholesterol/HDL Ratio 2.8 LDL Cholesterol, Calculated 120 mg/dl Medical Emergencies . Who to Call and When: Medical Emergencies: If at any time you feel your situation is an emergency, please call 911 immediately. . Non-Emergent Contact Non-Emergency issues call your: Primary Care Provider, [employer] Machine Operator Call Non-Emergent contact if: you have a fever, your pain is not controlled . . "Provider Documentation" section prepared by Tylor Rice. . VTE Core Measure Inpt VTE Proph given/why not?: Unfractionated heparin SQ
--- NOTE | 2017-04-29 10:26 | Discharge Summary ---
Discharge Summary Date of Service Apr 29, 2017. Discharge Summary Admission Date: Apr 26, 2017 at 11:14 Discharge Date: Apr 29, 2017 Discharge Disposition: Home Principal Diagnosis: Acute and chronic diastolic congestive heart failure Problems/Secondary Diagnoses: Acute and chronic diastolic congestive heart failure Shortness of breath and chest tightness secondary to above Positive troponin secondary to demand ischemia Cryoglobulinemia and Sjogren syndrome Rectal bleed consistent with hemorrhoids Hematuria combined Anemia of chronic diseases plus acute blood loss anemia with sudden drop in hgb from 9 to 7, likely secondary to blood loss and dilutional effect of CHF Persistent cough, possible bronchospastic last posterior nasal discharge Immunizations: Have You Had Influenza Vaccine: No History of Tetanus Vaccine?: Unknown History of Pneumococcal: No History of Hepatitis B Vaccine: No Medication Reconciliation New Medications: Albuterol Sulf (Proventil 0.083% 2.5MG/3ML) 2.5 Mg/3 Ml Nebu 2.5 MG INH BID for 30 Days, #25 VIAL 1 Refill mix with ipratrobium when using use twice daily for a week the after that you can only use every 12 hours as needed for shortness of breath Ipratropium [place] (Ipratropium [place]) 0.5 Mg/2.5 Ml Nebu 1 VIAL NEB BID for 30 Days, #25 VIAL 1 Refill mix with Albutarol when using use twice daily for a week the after that you can only use every 12 hours as needed for shortness of breath Nebulizer Machine (Home Use) (Nebulizer Machine (Home Use) ) Mis EA N/A UD, #1 Azithromycin (Azithromycin) 250 Mg Tab 250 MG PO QAM for 3 Days, #3 TAB start on 04/30 Bumetanide (Bumetanide) 1 Mg Tab 0.5 MG PO QAM for 30 Days, #15 TAB Carvedilol (Carvedilol) 12.5 Mg Tab 12.5 MG PO BID for 30 Days, #60 TAB Lisinopril (Lisinopril) 5 Mg Tab 5 MG PO DAILY for 30 Days, #30 TAB Saline ([place] Nasal [place]) 0.65 % Spr 2 SPRAYS NA QID for 30 Days, #1 BTL Changed Medications: Prednisone Tab (Prednisone) 10 Mg Tab 50 MG PO DAILY for 6 Days, #8 TAB (Changed from: 35; 16; Taper 5 tablets on day 1 4 tablets on day 2,3,4 3 tablets on day 5,6,7 2 tablets on day 8,9,10 1 tab on day 11,12,13) Taper 3 tablets on day 1 2 tablets on day 2 1 tablets on day 3,4 0.5 tablets on day 5,6 then stop, if you experince any unusual symptoms come to ED Continued Medications: Alendronate Sodium (Alendronate Sodium) 70 Mg Tab 70 MG PO WK Escitalopram Oxalate (Lexapro) 5 Mg Tab 5 MG PO DAILY Hydroxychloroquine Sulfate (Plaquenil) 200 Mg Tab 200 MG PO BID for 30 Days, #60 TAB Levothyroxine Sodium (Synthroid) 75 Mcg Tab 75 MCG PO DAILY, TAB Discontinued Medications: Cevimeline Hcl (Cevimeline Hcl) 30 Mg Cap 30 MG PO BID Cyanocobalamin (Cyanocobalamin) 1,000 Mcg/Ml Inj 1000 MCG INJ Mo Lisinopril (Zestril) 2.5 Mg Tab 2.5 MG PO DAILY Discharge Exam Review of Systems: Constitutional: No fever, No chills, No sweats, No weight loss, No weakness , No fatigue, No problem reported Eyes: No worsening of vision, No eye pain, No redness, No discharge, No diplopia, No problem reported ENT: No hearing loss, No unusual epistaxis, No nasal symptoms, No sore throat, No tinnitus, No dental problems, No trouble swallowing, No problem reported Respiratory: No cough, No sputum, No wheezing, No shortness of breath, No dyspnea on exertion, No dyspnea at rest, No hemoptysis, No problem reported Cardiovascular: No chest pain, No orthopnea, No PND, No edema, No claudication, No palpitations, No problem reported Abdomen: No pain, No nausea, No vomiting, No diarrhea, No constipation, No GI bleeding, No problem reported Musculoskeletal: No joint pain, No muscle pain, No swelling, No calf pain, No problem reported Genitourinary - Female: No dysuria, No urinary frequency, No urinary urgency , No urinary incontinence, No urinary retention, No hematuria, No dysmenorrhea, No menorrhagia, No metrorrhagia, No rash, No vaginal bleeding, No vaginal discharge, No vaginal itching, No vulvodynia, No , No problem reported Neurologic: No memory loss, No paralysis, No weakness, No numbness/tingling , No vertigo, No balance problems, No problem reported Psychiatric: No depression symptoms, No anhedonism, No anxiety, No insomnia , No substance abuse, No problem reported Endocrine: No fatigue, No excessive thirst, No excessive urination, No problem reported Hematologic / Lymphatic: No abnormal bleeding/bruising, No clotting problems , No swollen lymph nodes, No night sweats, No problem reported Integumentary: No rash, No itch, No new/changing skin lesions, No color change, No bleeding, No problem reported Physical Exam: General Appearance: WD/WN, no apparent distress Eyes: normal inspection, EOMI ENT: normal ENT inspection, hearing grossly normal Neck: supple Respiratory/Chest: chest non-tender, lungs clear, normal breath sounds, no respiratory distress, no accessory muscle use Cardiovascular: regular rate, rhythm, no edema, no gallop, no JVD, no murmur Abdomen / GI: non tender, soft, no organomegaly, no pulsatile mass Extremities: normal inspection, + swelling Neurologic/Psychiatric: aurist II-XII nml as tested, no motor/sensory deficits , alert, normal mood/affect, normal reflexes, oriented x 3 Skin: normal color, warm/dry, no rash Hospital Course 51 years old female presented to the hospital with chest tightness and shortness of breath, also had lower ext swelling and increased weight. CXR showed Pulmonary vascular congestion. she was started on Bumex. she also gave Hx of rectal bleed, ER exam was consistent with hemorrhoids. She had a colonoscopy 1 year ago, she will discuss the current finding with her primary care physician. Also noticed to have hematuria and protein in the urine, which raises the suspicion for Possible nephrotic syndrome, ongoing outpatient nephrology followup. She does have 4+ protein in her urine. While in the hospital she was noticed to have her hemoglobin dropped from 9 to 7. Normal folate and iron study Elevated B12 which is expected an acute conditions , also she was on B12 supplement that was discontinued upon discharge . LDH was minimally elevated indicating no significant hemolysis, She was given 2 units packed red blood cells, CMV negative, leukocytic reduced and irradiated, giving her immunocompromise status. Her hgb improved to 10 g today. Continue to complain of cough while in the hospital despite negative chest x- ray for pneumonia started on bronchodilators Started azithromycin for bronchitis, continued for 3 more days after discharge Normal saline nasal spray Tapered down prednisone Hemoglobin A1c was 5.4 Lipids panel revealed LDL of 120 D-dimer was slightly elevated, but ultrasound lower extremity showed no DVT Cardiology was consulted for her potential severe right-sided heart failure 2-D echo was obtained and results are attached below Final discharge diagnoses Acute and chronic diastolic congestive heart failure Shortness of breath and chest tightness secondary to above Positive troponin secondary to demand ischemia Cryoglobulinemia and Sjogren syndrome Rectal bleed consistent with hemorrhoids Hematuria, proteinuria, possible nephrotic syndrome combined Anemia of chronic diseases plus acute blood loss anemia with sudden drop in hgb from 9 to 7, likely secondary to blood loss and dilutional effect of CHF Persistent cough, possible bronchospastic last posterior nasal discharge Total Time Spent: Greater than 30 minutes This includes examination of the patient, discharge planning, medication reconciliation, and communication with other providers. Discharge Instructions Please refer to the electronic Patient Visit Report (Discharge Instructions) for additional information.
== END 2017-04-29 12:29 | disposition home or self-care (01) | DRG 292 ==
LOC: C.EDB 07:40 → C.MED 09:43 → ENRESERV 10:18 → OBSVTOIN 04-26 11:14
PROVIDERS: ADMIT Family Medicine; ATTEND Internal Medicine
DX: I50.33 Acute on chronic diastolic (congestive) heart failure (principal); N04.9 Nephrotic syndrome with unspecified morphologic changes; I24.8 Other forms of acute ischemic heart disease; D62 Acute posthemorrhagic anemia; T38.0X5A Adverse effect of glucocorticoids and synthetic analogues, initial encounter; G44.209 Tension-type headache, unspecified, not intractable; M99.01 Segmental and somatic dysfunction of cervical region; D89.1 Cryoglobulinemia; M35.00 Sjogren syndrome, unspecified; D63.8 Anemia in other chronic diseases classified elsewhere; R79.89 Other specified abnormal findings of blood chemistry; K64.9 Unspecified hemorrhoids; R31.9 Hematuria, unspecified; R05 Cough; E53.8 Deficiency of other specified B group vitamins; M06.9 Rheumatoid arthritis, unspecified; E03.9 Hypothyroidism, unspecified; E87.5 Hyperkalemia; Z87.891 Personal history of nicotine dependence; Z79.83 Long term (current) use of bisphosphonates; Z79.899 Other long term (current) drug therapy; Z82.49 Family history of ischemic heart disease and other diseases of the circulatory system; Z84.1 Family history of disorders of kidney and ureter

== ENCOUNTER → 2017-07-11 | Outpatient (CLI) | payer BC, OTHER ==
[~2017-07-11] MED LIST changes: +ALBINS/ INH; +ATRINS NEB; +AZIT-57 PO; +BMX1 PO; -CEVI1CAP PO; +CRG125 PO; -CYNI1000 INJ; -ELUX1TAB2 PO; +LISI-730 PO; -LISI-789 PO; +SALI0.6510; -ULT50X OR
[2017-07-11 09:34] LABS: BASO % 1.1 %; BASO ABS # 0.03 K/uL (0-0.2); EOS % 8.5 %; EOS ABS # 0.24 K/uL (0-0.5); HEMATOCRIT 28.5 % (37-47); HEMOGLOBIN 9.5 g/dL (12.0-16.0); LYMPH % 32.6 %; LYMPH ABS # 0.92 K/uL (1.2-3.4); MEAN CELL VOLUME 91.3 fL (80-100); MEAN CORPUSCULAR HEMOGLOBIN 30.4 pg (25-34); MEAN CORPUSCULAR HGB CONC 33.3 g/dl (32-36); MEAN PLATELET VOLUME 10.2 fL (7.4-10.4); MONO % 12.1 %; MONO ABS # 0.34 K/uL (0.11-0.59); NEUT % 45.7 %; NEUT ABS # 1.29 K/uL (1.4-6.5); PLATELET COUNT 211 K/uL (130-400); RED CELL DISTRIBUTION WIDTH CV 13.2 % (11.5-14.5); RED CELL DISTRIBUTION WIDTH SD 43.9 fL (36.4-46.3); WHITE BLOOD COUNT 2.82 K/uL (4.8-10.8)
[2017-07-11 10:08] LABS: ALBUMIN 3.3 gm/dl (3.4-5.0); ALKALINE PHOSPHATASE 83 U/L (45-117); ALT/SGPT 39 U/L (12-78); AST/SGOT 34 U/L (15-37); BLOOD UREA NITROGEN 16 mg/dl (7-18); CALCIUM 9.3 mg/dl (8.5-10.1); CARBON DIOXIDE 26 mmol/L (21-32); CHOLESTEROL 263 mg/dl (0-200); CREATININE 0.75 mg/dl (0.60-1.20); GLUCOSE 79 mg/dl (70-99); PHOSPHORUS 4.6 mg/dl (2.5-4.9); POTASSIUM 4.6 mmol/L (3.5-5.1); SODIUM 142 mmol/L (136-145); TOTAL PROTEIN 5.8 gm/dl (6.4-8.2)
[2017-07-11 10:17] LABS: LDL CHOLESTEROL (DIRECT) 182 mg/dl
[2017-07-12 11:14] LABS: COMPLEMENT C4** TC 44982E LESS THAN 2 MG/DL (16-47)
== END | disposition home or self-care (01) ==
LOC: C.LAB 07:46
PROVIDERS: ATTEND Family Medicine
DX: M06.9 Rheumatoid arthritis, unspecified (principal); M35.00 Sjogren syndrome, unspecified; K58.0 Irritable bowel syndrome with diarrhea; E55.9 Vitamin D deficiency, unspecified; E78.00 Pure hypercholesterolemia, unspecified; I10 Essential (primary) hypertension; M35.03 Sjogren syndrome with myopathy; G71.11 Myotonic muscular dystrophy; E03.8 Other specified hypothyroidism; D64.9 Anemia, unspecified; N18.2 Chronic kidney disease, stage 2 (mild); D89.1 Cryoglobulinemia